=== PATIENT | female | born 1940 ===

== ENCOUNTER 2021-08-17 18:14 | Outpatient (REF) | payer MEDICARE, OTHER, SELFPAY | END 2021-08-17 18:15 | disposition home or self-care (01) | LOC: HO.LNP 18:14 | PROVIDERS: Visit Provider Internal Medicine | DX: R43.9 Unspecified disturbances of smell and taste (principal); Z20.822 Contact with and (suspected) exposure to COVID-19 | CPT/HCPCS: 0241U ==

== ENCOUNTER 2021-08-18 15:27 | Outpatient (REF) | payer MEDICARE, OTHER, SELFPAY ==
[2021-08-18 16:20] LABS: Influenza A PCR NEGATIVE (Negative); Influenza B PCR NEGATIVE (Negative); Resp Syncy Virus RNA Qual PCR NEGATIVE (Negative); SARS COV2 PCR INHOUSE NEGATIVE (Negative)
== END 2021-08-18 15:28 | disposition home or self-care (01) ==
LOC: HO.LNP 15:27
PROVIDERS: Visit Provider Internal Medicine
DX: R43.9 Unspecified disturbances of smell and taste (principal); Z20.822 Contact with and (suspected) exposure to COVID-19
CPT/HCPCS: 0241U

== ENCOUNTER 2022-10-15 12:08 | Outpatient (REF) | payer MEDICARE, OTHER, SELFPAY ==
[2022-10-15 14:41] LABS: Estimated Average Glucose 160 mg/dL; Hemoglobin A1c % 7.2 %
[2022-10-15 14:42] LABS: Alanine Aminotransferase 13 U/L (0-31); Alkaline Phosphatase 75 U/L (39-117); Anion Gap 12 (12-20); Aspartate Amino Transferase 16 U/L (5-31); Bilirubin Total 0.8 mg/dL (0.0-1.0); Blood Urea Nitrogen 13 mg/dL (9-16); Calcium 9.3 mg/dL (8.4-10.2); Carbon Dioxide 30 mmol/L (22-29); Chloride 103 mmol/L (96-108); Estimated Glomerular Filt Rate > 60; Glucose Random 153 mg/dL (60-115); Potassium 3.7 mmol/L (3.3-5.1); Sodium 141 mmol/L (135-145); Total Protein 6.5 g/dL (6.5-8.0)
[2022-10-15 15:01] LABS: TSH reflex Free T4 2.57 uIU/mL (0.32-4.0)
== END 2022-10-15 12:09 | disposition home or self-care (01) ==
LOC: HO.HMGCLDS 12:08
PROVIDERS: PCP Internal Medicine; Visit Provider Internal Medicine
DX: I10 Essential (primary) hypertension (principal); E11.9 Type 2 diabetes mellitus without complications
CPT/HCPCS: 36415; 80053; 83036; 84443

== ENCOUNTER 2023-09-22 14:00 | Outpatient (AMB) | payer MEDICARE, OTHER, SELFPAY ==
[2023-09-22 14:03] VITALS: BP 140/66; PULSE 83; O2SAT 94; BMI 30.7
--- NOTE | 2023-09-22 14:03 | MHC.PC.OV ---
Vital Signs 09/22/23 14:03 Height 5 ft 6 in Weight 190 lb BMI 30.7 BP 140/66 H Blood Pressure Location Rt brachial Position Sitting Pulse 83 Pulse Source Pulse Oximeter Pulse Oximetry (%) 94 Oxygen Delivery Method Room Air Intake Visit Reasons: IBS concerns Intake Note: Pt is here today for a follow up visit to discuss IBS concerns. Allergies codeine Allergy (Unknown, Verified 09/22/23 14:18) vomitting Sulfa (Sulfonamide Antibiotics) Allergy (Unknown, Verified 09/22/23 14:18) hallucinating Tobacco use date assessed: 09/22/23 Fall risk assessment: No Falls in past year Last assessed Fall Risk: 09/22/23 Dental Screening Dental Screen Date: 09/22/23 Did you have a dental visit in the last 12 months?: Yes Did you have a dental problem in the last 6 months where you did not have access to dental care?: No Was dental information given to patient?: Patient has dentist HPI IBS concerns HPI Details Pt c/o recurrent postnasal drip, intermittent cough at night, no fever, chills PND orthopnea chest pain night sweats, patient complains of both ears feeling blocked and chronic IBS symptoms alternating constipation and diarrhea patient denies abdominal pain hematochezia melena. [facility] Medical History (Updated 09/22/23 @ 14:56 by Pascale Johnson MD) Vitamin D deficiency Diabetes Microalbuminuria Asthma History of TIAs HTN (hypertension) Family History Father History of cancer Mother No problems noted. Social History Housing: House Patient Tobacco Use Status: Former Tobacco user e-Cigarette/Vaping Use: Never Used Current occupational status: retired Cognitive needs: No Hearing needs: No Vision needs: Yes Questionnaire PHQ-9 Over the last 2 weeks, how often have you been bothered by any of the following problems? 1. Little interest or pleasure in doing things: not at all 2. Feeling down, depressed, or hopeless: not at all 3. Trouble falling or staying asleep, or sleeping too much: not at all 4. Feeling tired or having little energy: not at all 5. Poor appetite or overeating: not at all 6. Feeling bad about yourself - or that you are a failure or have let yourself or your family down: not at all 7. Trouble concentrating on things, such as reading the newspaper or watching television: not at all 8. Moving or speaking so slowly that other people could have noticed. Or the opposite - being so fidgety or restless that you have been moving around a lot more than usual: not at all 9. Thoughts that you would be better off or of hurting yourself in some way: not at all Total score: 0 Depression Screening Interpretation: Negative Depression Screening Done: Yes Source: Developed by Drs. Chetan Strong, Emma Maya, Celestino Franklin and colleagues, with an educational james from [employer]. Thrive Questionnaire Date Thrive assessed: 09/22/23 I am a: Patient What is your living situation today?: I have a steady place to live Within the past 12 months, did the food you bought not last and you didn't have the money to get more?: Never true Within the past 12 months, did you worry whether your food would run out before you got money to buy more?: Never true Do you have trouble paying for medicines?: No Do you have trouble getting transportation to medical appointments?: No Do you have trouble paying your heating and electricity bill?: No Do you have trouble taking care of your child, family member or friend?: No Do you have trouble with day-to-day activities such as bathing, preparing meals, shopping, managing finances, etc.?: No Are you currently unemployed and looking for a job?: No Are you interested in more education?: No Please select the resources that you would like help with: None Currently or been in a relationship where the following occur: no concerns reported THRIVE Score: 0 AUDIT C Alcohol Use Questionnaire (AUDIT-C) 1. How often do you have a drink containing alcohol?: Never 3. How often do you have six or more drinks on one occasion?: Never Total Score: 0 KELLIE-7 AMB Questionnaire KELLIE-7 Date KELLIE - 7 assessed: 09/22/23 Feeling nervous, anxious, or on edge: 0 = Not at all Not being able to stop or control worryin = Not at all Worrying too much about different things: 0 = Not at all Trouble relaxin = Not at all Being so restless that it is hard to sit still: 0 = Not at all Becoming easily annoyed or irritable: 0 = Not at all Feeling afraid as if something awful might happen: 0 = Not at all Total KELLIE-7 score (0-4 normal; 5-9 mild; 10-14 moderate; 15-21 severe): 0 Source: Developed by Drs. Chetan Strong, Emma Maya, Celestino Franklin and colleagues, with an educational james from [employer]. Review of Systems Const All systems reviewed & are unremarkable except as noted in HPI and below Reports no additional complaints Eyes Reports no additional complaints ENT Reports no additional complaints Card Reports no additional complaints Resp Reports no additional complaints GI Reports no additional complaints Reports no additional complaints Physical exam (Primary Care) Vital Signs: Last Vital Signs Pulse 83 09/22/23 14:03 BP 140/66 H 09/22/23 14:03 Pulse Ox 94 09/22/23 14:03 Oxygen Delivery Method Room Air 09/22/23 14:03 BMI result Body Mass Index 30.7 Tobacco/Smoking Status: Tobacco use Status Tobacco use date assessed 09/22/23 09/22/23 14:20 Patient Tobacco Use Status Former Tobacco user 09/22/23 14:20 e-Cigarette/Vaping Use Never Used 09/22/23 14:03 PHQ-9: PHQ-9 Score PHQ-9: Total score 0 09/22/23 14:22 Depression Screening Interpretation: Negative Thrive Assessment: Date of Thrive Assessment Date Thrive assessed 09/22/23 09/22/23 14:22 Currently or been in a relationship where the following occur: no concerns reported Const General: no acute distress HENMT Ears: unable to visualize TM (cerumen impaction) bilaterally Face and sinus: Yes normal facial exam Throat: Yes posterior oropharynx normal Eyes General: appearance normal, both eyes and all related structures Resp Effort & Inspection: normal respiratory effort Auscultation: clear to auscultation bilaterally Cardio Rhythm: regular rhythm Heart sounds: S1 normal heart sound present and S2 normal heart sound present GI Inspection: Yes normal to inspection Palpation (GI): Soft to palpation Percussion: Yes dullness to percussion Auscultation: normal bowel sounds Assessment and Plan Assessment & Plan (1) Diabetes: Comment: A1c was 6.9. Continue ADA diet increase physical activity weight loss discussed with the patient Code(s): E11.9 - Type 2 diabetes mellitus without complications Plan: ADA diet discussed with the patient. She will return for fasting blood work including A1c (2) HTN (hypertension): Comment: continue medications Code(s): I10 - Essential (primary) hypertension Plan: Continue current medications (3) Vitamin D deficiency: Code(s): E55.9 - Vitamin D deficiency, unspecified Plan: Continue vitamin-D supplement (4) Postnasal drip: Code(s): R09.82 - Postnasal drip Plan: Patient was advised to alternate saline nasal spray and Flonase and try [id number] antihistamine if the postnasal drip persist (5) IBS (irritable bowel syndrome): Code(s): K58.9 - Irritable bowel syndrome without diarrhea Plan: Patient was advised to start iron supplement and probiotic, stress management discussed with the patient Orders: Orders Hemoglobin A1c Today E11.9 - Type 2 diabetes mellitus without complications, E55.9 - Vitamin D deficiency, unspecified, I10 - Essential (primary) hypertension Complete Blood Count Auto Diff Today E11.9 - Type 2 diabetes mellitus without complications, E55.9 - Vitamin D deficiency, unspecified, I10 - Essential (primary) hypertension TSH reflex Free T4 Today E11.9 - Type 2 diabetes mellitus without complications, E55.9 - Vitamin D deficiency, unspecified, I10 - Essential (primary) hypertension XR chest 1V Today R05.9 - Cough, unspecified Comprehensive [place]. Panel Fast Today E11.9 - Type 2 diabetes mellitus without complications, E55.9 - Vitamin D deficiency, unspecified, I10 - Essential (primary) hypertension Lipid Panel Today E11.9 - Type 2 diabetes mellitus without complications, E55.9 - Vitamin D deficiency, unspecified, I10 - Essential (primary) hypertension Microalbumin, Random (w Creat) Today E11.9 - Type 2 diabetes mellitus without complications, E55.9 - Vitamin D deficiency, unspecified, I10 - Essential (primary) hypertension Vitamin D 25-OH Total Today E11.9 - Type 2 diabetes mellitus without complications, E55.9 - Vitamin D deficiency, unspecified, I10 - Essential (primary) hypertension Coding Level of Care Code Est Pt Level 4 (57663) Diagnoses Diabetes E11.9 HTN (hypertension) I10 Vitamin D deficiency E55.9 Postnasal drip R09.82 IBS (irritable bowel syndrome) K58.9
== END 2023-09-22 14:58 | disposition home or self-care (01) ==
PROVIDERS: PCP Internal Medicine; Visit Provider Internal Medicine
DX: E11.9 Type 2 diabetes mellitus without complications (principal); I10 Essential (primary) hypertension; E55.9 Vitamin D deficiency, unspecified; R09.82 Postnasal drip; K58.9 Irritable bowel syndrome, unspecified
CPT/HCPCS: 99214

== ENCOUNTER 2023-09-22 14:55 | Outpatient (REF) | payer MEDICARE, OTHER, SELFPAY ==
--- NOTE | ~2023-09-22 | XR_ITS ---
EXAMINATION: XR CHEST CLINICAL INFORMATION: Cough COMPARISON: Chest x-ray October 08, 2006 TECHNIQUE: 2 views of the chest were obtained. FINDINGS: Lungs are clear. No pulmonary vascular congestion. There is no pleural effusion. The heart size is normal. The cardiac and mediastinal contours are normal. . There are multilevel degenerative changes of dorsal spine. XR/XR chest 2V IMPRESSION: Unremarkable examination.
== END 2023-09-22 14:56 | disposition home or self-care (01) ==
LOC: HO.HMGCX 14:55
PROVIDERS: PCP Internal Medicine; Visit Provider Internal Medicine
DX: R05.9 Cough, unspecified (principal)
CPT/HCPCS: 71046

== ENCOUNTER 2023-09-24 13:15 | Outpatient (REF) | payer MEDICARE, OTHER, SELFPAY ==
[2023-09-24 16:16] LABS: MANUAL DIFF FLAG NO
[2023-09-24 16:30] LABS: Basophils Percent Auto 0.7 % (0-2); Eosinophils Absolute Auto 0.2 X10*3/uL (0.0-0.4); Eosinophils Percent Auto 3.4 % (0-4); Hematocrit 38.7 % (37.0-47.0); Hemoglobin 13.2 g/dl (12.0-16.0); Imm Gran Abs Auto 0.01 X10*3/uL (0.00-0.03); Imm Gran Pct Auto 0.2 % (0.0-0.4); Lymphocytes Absolute Auto 1.7 X10*3/uL (1.2-4.9); Lymphocytes Percent Auto 28.5 % (20-40); Mean Corpuscular HGB Conc 34.1 g/dl (31.0-35.0); Mean Corpuscular Hemoglobin 33.4 pg (27.0-33.0); Monocytes Absolute Auto 0.4 X10*3/uL (0.1-1.2); Monocytes Percent Auto 7.6 % (2-11); Neutrophils Absolute Auto 3.5 x10*3/uL (2.0-8.3); Neutrophils Percent Auto 59.6 % (45-73); Platelet Count 229 X10*3/uL (160-400); Red Blood Count 3.95 X10*6/uL (4.20-5.50); Red Cell Distribution Width 12.6 % (11.0-16.0); White Blood Count 5.8 X10*3/uL (4.8-10.8)
[2023-09-24 16:40] LABS: Estimated Average Glucose 171 mg/dL; Hemoglobin A1c % 7.6 % (<6.0)
[2023-09-24 17:14] LABS: Microalbum/Creatinine Ratio Ur 14.9 ug/mg cr (<30)
[2023-09-24 17:18] LABS: Alanine Aminotransferase 16 U/L (0-31); Albumin Level 3.8 g/dL (3.5-5.0); Alkaline Phosphatase 65 U/L (39-117); Anion Gap 13 (12-20); Aspartate Amino Transferase 16 U/L (5-31); Bilirubin Total 0.6 mg/dL (0.0-1.0); Blood Urea Nitrogen 14 mg/dL (9-16); Calcium 9.3 mg/dL (8.4-10.2); Carbon Dioxide 30 mmol/L (22-29); Chloride 103 mmol/L (96-108); Cholesterol 158 mg/dL (<200); Estimated Glomerular Filt Rate 59; Glucose Fasting 138 mg/dL (60-99); HDL Cholesterol 61 mg/dL (>40); LDL Cholesterol Calculated 78 mg/dL (<100); Sodium 143 mmol/L (135-145); Total Protein 6.7 g/dL (6.5-8.0); Triglycerides 96 mg/dL (<150)
[2023-09-24 17:36] LABS: TSH reflex Free T4 1.39 uIU/mL (0.32-4.0); Vitamin D 25-OH Total 12.7 ng/mL (>30)
== END 2023-09-24 13:16 | disposition home or self-care (01) ==
LOC: HO.HMGCLDS 13:15
PROVIDERS: PCP Internal Medicine; Visit Provider Internal Medicine
DX: E11.9 Type 2 diabetes mellitus without complications (principal); I10 Essential (primary) hypertension; E55.9 Vitamin D deficiency, unspecified
CPT/HCPCS: 36415; 80053; 80061; 82043; 82306; 82570; 83036; 84443; 85025

== ENCOUNTER 2023-10-13 12:09 | Outpatient (REF) | payer MEDICARE, OTHER, SELFPAY ==
[2023-10-13 14:33] LABS: Anion Gap 12 (12-20); Blood Urea Nitrogen 17 mg/dL (9-16); Calcium 9.5 mg/dL (8.4-10.2); Carbon Dioxide 31 mmol/L (22-29); Chloride 104 mmol/L (96-108); Estimated Glomerular Filt Rate > 60; Glucose Random 170 mg/dL (60-115); Potassium 3.9 mmol/L (3.3-5.1); Sodium 143 mmol/L (135-145)
== END 2023-10-13 12:10 | disposition home or self-care (01) ==
LOC: HO.HMGCLDS 12:09
PROVIDERS: PCP Internal Medicine; Visit Provider Internal Medicine
DX: E87.6 Hypokalemia (principal)
CPT/HCPCS: 36415; 80048

== ENCOUNTER 2023-12-22 14:11 | Outpatient (AMB) | payer MEDICARE, OTHER, SELFPAY ==
[2023-12-22 14:13] VITALS: BP 122/74; PULSE 72; O2SAT 95; BMI 31.0
--- NOTE | 2023-12-22 14:13 | A.OFFPC_ITS ---
Vital Signs 12/22/23 14:13 Height 5 ft 6 in Weight 192 lb BMI 31.0 BP 122/74 Blood Pressure Location Rt brachial Position Sitting Pulse 72 Pulse Source Pulse Oximeter Pulse Oximetry (%) 95 Oxygen Delivery Method Room Air Intake Visit Reasons: 3 month follow up Intake Note: Pt is here today for 3 months follow up visit. Allergies codeine Allergy (Unknown, Verified 12/22/23 14:25) vomitting Sulfa (Sulfonamide Antibiotics) Allergy (Unknown, Verified 12/22/23 14:25) hallucinating Medication List - Last Reconciled 12/22/23 by Pascale Johnson MD albuterol sulfate 90 mcg/actuation 2 puffs inhalation Q6H atenolol 50 mg PO DAILY blood sugar diagnostic (FreeStyle Lite Strips) test once a day blood-glucose meter (FreeStyle [place] kit) Test blood sugar once a day cholecalciferol (vitamin D3) 50 mcg PO DAILY hydrochlorothiazide 12.5 mg PO DAILY lancets (FreeStyle Lancets) Test blood sugar once a day losartan 25 mg PO DAILY potassium chloride ER 20 mEq PO DAILY Tobacco use date assessed: 12/22/23 Fall risk assessment: No Falls in past year Last assessed Fall Risk: 12/22/23 Dental Screening Dental Screen Date: 09/22/23 HPI 3 month follow up HPI Details Pt presents for HTN, diet-controlled diabetes. She has not been following antidiabetic diet and eating sweets. Patient reports occasionally fasting blood glucose over 200. She denies polyuria polydipsia PFSH Medical History Vitamin D deficiency Diabetes Microalbuminuria Asthma History of TIAs HTN (hypertension) Surgical History H/O: hysterectomy Family History Father History of cancer Mother No problems noted. Social History Housing: House Patient Tobacco Use Status: Former Tobacco user e-Cigarette/Vaping Use: Never Used service: No Current occupational status: retired Cognitive needs: No Hearing needs: No Vision needs: Yes Questionnaire Thrive Questionnaire Date Thrive assessed: 09/22/23 KELLIE-7 AMB Questionnaire KELLIE-7 Date KELLIE - 7 assessed: 09/22/23 Source: Developed by DrsMarianela Strong, Emma Maya, Celestino Franklin and colleagues, with an educational james from [employer]. Review of Systems Const All systems reviewed & are unremarkable except as noted in HPI and below Reports no additional complaints Eyes Reports no additional complaints ENT Reports no additional complaints Card Reports no additional complaints Resp Reports no additional complaints GI Reports no additional complaints Reports no additional complaints Musc Reports no additional complaints Neuro Reports no additional complaints Physical exam (Primary Care) Vital Signs: Last Vital Signs Pulse 72 12/22/23 14:13 BP 122/74 12/22/23 14:13 Pulse Ox 95 12/22/23 14:13 Oxygen Delivery Method Room Air 12/22/23 14:13 BMI result Body Mass Index 31.0 Tobacco/Smoking Status: Tobacco use Status Tobacco use date assessed 12/22/23 12/22/23 14:26 Patient Tobacco Use Status Former Tobacco user 12/22/23 14:26 e-Cigarette/Vaping Use Never Used 12/22/23 14:13 Thrive Assessment: Date of Thrive Assessment Date Thrive assessed 09/22/23 12/22/23 14:13 Const General: no acute distress HENMT Head: Yes normal to inspection Ears: hearing grossly normal bilaterally Face and sinus: Yes normal facial exam Mouth: Normal oral and palatal mucosa present Throat: Yes posterior oropharynx normal Eyes General: appearance normal, both eyes and all related structures Neck Neck: Yes no lymphadenopathy and Yes supple Resp Effort & Inspection: normal respiratory effort Auscultation: clear to auscultation bilaterally Cardio Rhythm: regular rhythm Heart sounds: S1 normal heart sound present and S2 normal heart sound present GI Inspection: Yes normal to inspection Palpation (GI): Soft to palpation Percussion: Yes normal to percussion Auscultation: normal bowel sounds Assessment and Plan Assessment & Plan (1) HTN (hypertension): Comment: continue medications Code(s): I10 - Essential (primary) hypertension Plan: Patient was advised to stop taking hydrochlorothiazide because of recurrent hypokalemia. She will follow-up in 1 month with a fasting labs before including A1c (2) Diabetes: Comment: A1c was 6.9. Continue ADA diet increase physical activity weight loss discussed with the patient Code(s): E11.9 - Type 2 diabetes mellitus without complications Plan: ADA diet regular exercise discussed with the patient (3) Hypokalemia: Comment: Stop hydrochlorothiazide Code(s): E87.6 - Hypokalemia Orders: Orders Complete Blood Count Auto Diff 1 Month E11.9 - Type 2 diabetes mellitus without complications, E87.6 - Hypokalemia, I10 - Essential (primary) hypertension Comprehensive Met. Panel 1 Month E11.9 - Type 2 diabetes mellitus without complications, E87.6 - Hypokalemia, I10 - Essential (primary) hypertension Hemoglobin A1c 1 Month E11.9 - Type 2 diabetes mellitus without complications, E87.6 - Hypokalemia, I10 - Essential (primary) hypertension Medications: Refilled atenolol 50 mg PO DAILY 90 tabs 3RF losartan 25 mg PO DAILY 90 tabs 3RF Discontinued hydrochlorothiazide Discontinued Reason: Doctor's Order 12.5 mg PO DAILY 90 caps 3RF I10 - Essential (primary) hypertension potassium chloride ER Discontinued Reason: Doctor's Order 20 mEq PO DAILY 30 tabs 0RF Coding Level of Care Code Est Pt Level 3 (63401) Diagnoses HTN (hypertension) I10 Diabetes E11.9 Hypokalemia E87.6
== END 2023-12-22 15:14 | disposition home or self-care (01) ==
LOC: HO.HMGC 14:11
PROVIDERS: PCP Internal Medicine; Visit Provider Internal Medicine
DX: I10 Essential (primary) hypertension (principal); E11.9 Type 2 diabetes mellitus without complications; E87.6 Hypokalemia
CPT/HCPCS: 99213

== ENCOUNTER 2024-01-24 13:48 | Outpatient (REF) | payer MEDICARE, OTHER, SELFPAY ==
[2024-01-24 15:24] LABS: MANUAL DIFF FLAG NO
[2024-01-24 15:29] LABS: Basophils Percent Auto 0.6 % (0-2); Eosinophils Absolute Auto 0.1 X10*3/uL (0.0-0.4); Eosinophils Percent Auto 2.5 % (0-4); Hemoglobin 13.6 g/dl (12.0-16.0); Imm Gran Abs Auto 0.01 X10*3/uL (0.00-0.03); Imm Gran Pct Auto 0.2 % (0.0-0.4); Lymphocytes Absolute Auto 1.7 X10*3/uL (1.2-4.9); Lymphocytes Percent Auto 32.8 % (20-40); Mean Corpuscular Hemoglobin 33.2 pg (27.0-33.0); Mean Corpuscular Volume 97.6 fL (80.0-98.0); Monocytes Absolute Auto 0.5 X10*3/uL (0.1-1.2); Neutrophils Absolute Auto 2.9 x10*3/uL (2.0-8.3); Neutrophils Percent Auto 54.9 % (45-73); Platelet Count 224 X10*3/uL (160-400); Red Cell Distribution Width 13.2 % (11.0-16.0); White Blood Count 5.2 X10*3/uL (4.8-10.8)
[2024-01-24 16:09] LABS: Estimated Average Glucose 160 mg/dL; Hemoglobin A1c % 7.2 % (<6.0)
[2024-01-24 16:15] LABS: Alanine Aminotransferase 14 U/L (0-31); Alkaline Phosphatase 69 U/L (39-117); Anion Gap 15 (12-20); Aspartate Amino Transferase 15 U/L (5-31); Bilirubin Total 0.7 mg/dL (0.0-1.0); Blood Urea Nitrogen 17 mg/dL (9-16); Calcium 9.6 mg/dL (8.4-10.2); Carbon Dioxide 26 mmol/L (22-29); Chloride 108 mmol/L (96-108); Cholesterol 165 mg/dL (<200); Estimated Glomerular Filt Rate 56; Glucose Random 121 mg/dL (60-115); HDL Cholesterol 64 mg/dL (>40); LDL Cholesterol Calculated 82 mg/dL (<100); Potassium 3.8 mmol/L (3.3-5.1); Sodium 145 mmol/L (135-145); Total Protein 6.8 g/dL (6.5-8.0); Triglycerides 98 mg/dL (<150)
[2024-01-24 16:23] LABS: TSH reflex Free T4 2.16 uIU/mL (0.32-4.0); Vitamin D 25-OH Total 15.4 ng/mL (>30)
[2024-01-24 16:36] LABS: Folate 6.2 ng/mL (> or = 4.0); Vitamin B12 501 pg/mL (200-900)
== END 2024-01-24 13:49 | disposition home or self-care (01) ==
LOC: HO.HMGCLDS 13:48
PROVIDERS: Visit Provider Internal Medicine
DX: E55.9 Vitamin D deficiency, unspecified (principal); I10 Essential (primary) hypertension; E87.6 Hypokalemia; E11.9 Type 2 diabetes mellitus without complications
CPT/HCPCS: 36415; 80053; 80061; 82306; 82607; 82746; 83036; 84443; 85025

== ENCOUNTER 2024-01-27 12:50 | Outpatient (AMB) | payer MEDICARE, OTHER, SELFPAY ==
[2024-01-27 13:09] VITALS: BP 136/76; PULSE 69; O2SAT 96; BMI 30.9
--- NOTE | 2024-01-27 13:09 | A.OFFPC_ITS ---
Vital Signs 01/27/24 13:09 Height 5 ft 6 in Weight 191 lb 4 oz BMI 30.9 BP 136/76 Blood Pressure Location Rt brachial Position Sitting Pulse 69 Pulse Source Pulse Oximeter Pulse Oximetry (%) 96 Intake Visit Reasons: 1M F/U Allergies codeine Allergy (Unknown, Verified 01/27/24 13:10) vomitting Sulfa (Sulfonamide Antibiotics) Allergy (Unknown, Verified 01/27/24 13:10) hallucinating Medication List - Last Reconciled 01/27/24 by Pascale Johnson MD albuterol sulfate 90 mcg/actuation 2 puffs inhalation Q6H atenolol 50 mg PO DAILY blood sugar diagnostic ([employer] Lite Strips) USE TO CHECK BLOOD SUGAR ONCE A DAY DIRECTED blood-glucose meter (Science FantasyStyle [place] kit) Test blood sugar once a day cholecalciferol (vitamin D3) 50 mcg PO DAILY lancets (FreeStyle Lancets) Test blood sugar once a day losartan-hydrochlorothiazide 50-12.5 mg 1 tab PO DAILY Tobacco use date assessed: 01/27/24 Fall risk assessment: No Falls in past year Last assessed Fall Risk: 01/27/24 Dental Screening Dental Screen Date: 01/27/24 Did you have a dental visit in the last 12 months?: No Did you have a dental problem in the last 6 months where you did not have access to dental care?: No Was dental information given to patient?: No HPI 1M F/U HPI Details Pt presents for HTN, diet controlled DM 2, stable on meds. Patient noticed increasing lower extremity swelling since she is stopped taking hydrochlorothiazide. Patient denies shortness or breath, chest pain palpitations PND or orthopnea PFSH Medical History Vitamin D deficiency Diabetes Microalbuminuria Asthma History of TIAs HTN (hypertension) Surgical History H/O: hysterectomy Family History Father History of cancer Mother No problems noted. Social History Housing: House Patient Tobacco Use Status: Former Tobacco user e-Cigarette/Vaping Use: Never Used service: No Current occupational status: retired Cognitive needs: No Hearing needs: No Vision needs: Yes Questionnaire Thrive Questionnaire Date Thrive assessed: 09/22/23 AUDIT C Alcohol Use Questionnaire (AUDIT-C) 1. How often do you have a drink containing alcohol?: Never 3. How often do you have six or more drinks on one occasion?: Never Total Score: 0 Score Reviewed/Action Taken: Yes KELLIE-7 AMB Questionnaire KELLIE-7 Date KELLIE - 7 assessed: 09/22/23 Source: Developed by Drs. Chetan Strong, Emma Maya, Celestino Franklin and colleagues, with an educational james from [employer]. Review of Systems Const All systems reviewed & are unremarkable except as noted in HPI and below Eyes Reports no additional complaints ENT Reports no additional complaints Card Reports no additional complaints Resp Reports no additional complaints GI Reports no additional complaints Reports no additional complaints Physical exam (Primary Care) Vital Signs: Last Vital Signs Pulse 69 01/27/24 13:09 BP 172/76 H 01/27/24 13:09 Pulse Ox 96 01/27/24 13:09 BMI result Body Mass Index 30.9 Tobacco/Smoking Status: Tobacco use Status Tobacco use date assessed 01/27/24 01/27/24 13:11 Patient Tobacco Use Status Former Tobacco user 01/27/24 13:11 e-Cigarette/Vaping Use Never Used 01/27/24 13:11 Thrive Assessment: Date of Thrive Assessment Date Thrive assessed 09/22/23 01/27/24 13:11 Const General: no acute distress HENMT Head: Yes normal to inspection Ears: hearing grossly normal bilaterally Face and sinus: Yes normal facial exam Mouth: Normal oral and palatal mucosa present Eyes General: appearance normal, both eyes and all related structures Neck Neck: Yes supple Resp Effort & Inspection: normal respiratory effort Auscultation: clear to auscultation bilaterally Cardio Rhythm: regular rhythm Heart sounds: S1 normal heart sound present and S2 normal heart sound present Extrem Other: 2+ pitting edema bilaterally Assessment and Plan Assessment & Plan (1) HTN (hypertension): Comment: continue medications Code(s): I10 - Essential (primary) hypertension Plan: Change losartan 25 mg to losartan with hydrochlorothiazide 50/12.5. Patient will have BMP checked in 1 week follow-up in 6 weeks (2) Diabetes: Comment: A1c was 6.9. Continue ADA diet increase physical activity weight loss discussed with the patient Code(s): E11.9 - Type 2 diabetes mellitus without complications Plan: A1c is 7.2, ADA diet increase exercise weight loss discussed with the patient (3) Overweight: Code(s): E66.3 - Overweight Plan: Increase physical activity weight loss discussed with the patient Orders: Orders Basic Metabolic Panel 1 Week I10 - Essential (primary) hypertension Medications: New losartan-hydrochlorothiazide 50-12.5 mg 1 tab PO DAILY 90 tabs 1RF Discontinued losartan Discontinued Reason: Doctor's Order 25 mg PO DAILY 90 tabs 3RF Coding Level of Care Code Est Pt Level 4 (16080) Diagnoses HTN (hypertension) I10 Diabetes E11.9 Overweight E66.3
== END 2024-01-27 13:59 | disposition home or self-care (01) ==
LOC: HO.HMGC 12:50
PROVIDERS: PCP Internal Medicine; Visit Provider Internal Medicine
DX: I10 Essential (primary) hypertension (principal); E11.9 Type 2 diabetes mellitus without complications; E66.3 Overweight
CPT/HCPCS: 99214

== ENCOUNTER 2024-03-09 10:27 | Outpatient (AMB) | payer MEDICARE, OTHER, SELFPAY ==
[2024-03-09 10:46] VITALS: BP 122/66; PULSE 62; O2SAT 97; BMI 30.2
--- NOTE | 2024-03-09 10:46 | A.OFFPC_ITS ---
Vital Signs 03/09/24 10:46 Height 5 ft 6 in Weight 187 lb BMI 30.2 BP 122/66 Blood Pressure Location Rt brachial Position Sitting Pulse 62 Pulse Source Pulse Oximeter Pulse Oximetry (%) 97 Oxygen Delivery Method Room Air Intake Visit Reasons: 6 week follow up Intake Note: Pt is here today for 6 weeks follow up visit on BP. Allergies codeine Allergy (Unknown, Verified 03/09/24 10:47) vomitting Sulfa (Sulfonamide Antibiotics) Allergy (Unknown, Verified 03/09/24 10:47) hallucinating Medication List - Last Reconciled 03/09/24 by Pascale Johnson MD albuterol sulfate 90 mcg/actuation 2 puffs inhalation Q6H atenolol 50 mg PO DAILY blood sugar diagnostic (WalkSourceStyle Lite Strips) USE TO CHECK BLOOD SUGAR ONCE A DAY DIRECTED blood-glucose meter (amaysimyle [place] [employer] kit) Test blood sugar once a day cholecalciferol (vitamin D3) 50 mcg PO DAILY lancets (WalkSourceStyle Lancets) Test blood sugar once a day losartan-hydrochlorothiazide 50-12.5 mg 1 tab PO DAILY Tobacco use date assessed: 03/09/24 Fall risk assessment: No Falls in past year Last assessed Fall Risk: 03/09/24 Dental Screening Dental Screen Date: 01/27/24 HPI 6 week follow up HPI Details PATIENT PRESENTS FOR THE FOLLOW-UP OF HYPERTENSION CONTROLLED ON CURRENT MEDICATIONS.. She has been following ADA diet for diet controlled diabetes. [facility] Medical History Vitamin D deficiency Diabetes Microalbuminuria Asthma History of TIAs HTN (hypertension) Surgical History H/O: hysterectomy Family History Father History of cancer Mother No problems noted. Social History Housing: House Patient Tobacco Use Status: Former Tobacco user e-Cigarette/Vaping Use: Never Used service: No Current occupational status: retired Cognitive needs: No Hearing needs: No Vision needs: Yes Questionnaire PHQ-9 Over the last 2 weeks, how often have you been bothered by any of the following problems? 1. Little interest or pleasure in doing things: not at all 2. Feeling down, depressed, or hopeless: not at all 3. Trouble falling or staying asleep, or sleeping too much: not at all 4. Feeling tired or having little energy: not at all 5. Poor appetite or overeating: not at all 6. Feeling bad about yourself - or that you are a failure or have let yourself or your family down: not at all 7. Trouble concentrating on things, such as reading the newspaper or watching television: not at all 8. Moving or speaking so slowly that other people could have noticed. Or the opposite - being so fidgety or restless that you have been moving around a lot more than usual: not at all 9. Thoughts that you would be better off or of hurting yourself in some way: not at all Total score: 0 Depression Screening Interpretation: Negative Depression Screening Done: Yes Source: Developed by Drs. Chetan Strong, Celestino Flores and colleagues, with an educational james from [employer]. Thrive Questionnaire Date Thrive assessed: 09/22/23 AUDIT C Alcohol Use Questionnaire (AUDIT-C) 1. How often do you have a drink containing alcohol?: Never 3. How often do you have six or more drinks on one occasion?: Never Total Score: 0 KELLIE-7 AMB Questionnaire KELLIE-7 Date KELLIE - 7 assessed: 09/22/23 Source: Developed by Drs. Chetan Strong, Celestino Flores and colleagues, with an educational james from [employer]. Review of Systems Const All systems reviewed & are unremarkable except as noted in HPI and below ENT Reports no additional complaints Card Reports no additional complaints Resp Reports no additional complaints GI Reports no additional complaints Reports no additional complaints Physical exam (Primary Care) Vital Signs: Last Vital Signs Pulse 62 03/09/24 10:46 BP 122/66 03/09/24 10:46 Pulse Ox 97 03/09/24 10:46 Oxygen Delivery Method Room Air 03/09/24 10:46 BMI result Body Mass Index 30.2 Tobacco/Smoking Status: Tobacco use Status Tobacco use date assessed 03/09/24 03/09/24 10:47 Patient Tobacco Use Status Former Tobacco user 03/09/24 10:47 e-Cigarette/Vaping Use Never Used 03/09/24 10:47 PHQ-9: PHQ-9 Score PHQ-9: Total score 0 03/09/24 11:03 Depression Screening Interpretation: Negative Thrive Assessment: Date of Thrive Assessment Date Thrive assessed 09/22/23 03/09/24 10:47 Const General: no acute distress HENMT Head: Yes normal to inspection Neck Neck: Yes supple Resp Effort & Inspection: normal respiratory effort Auscultation: clear to auscultation bilaterally Cardio Rhythm: regular rhythm Heart sounds: S1 normal heart sound present and S2 normal heart sound present Assessment and Plan Assessment & Plan (1) HTN (hypertension): Comment: continue medications Code(s): I10 - Essential (primary) hypertension Plan: Continue current medications check BMP today (2) Diabetes: Comment: A1c was 6.9. Continue ADA diet increase physical activity weight loss discussed with the patient Code(s): E11.9 - Type 2 diabetes mellitus without complications Plan: Continue ADA diet increase physical activity weight loss discussed with the patient return in 5 weeks with fasting labs including A1c Orders: Orders Hemoglobin A1c 5 Weeks E11.9 - Type 2 diabetes mellitus without complications, I10 - Essential (primary) hypertension Comprehensive [place]. Panel Fast 5 Weeks E11.9 - Type 2 diabetes mellitus without complications, I10 - Essential (primary) hypertension Basic Metabolic Panel Today E11.9 - Type 2 diabetes mellitus without complications, I10 - Essential (primary) hypertension Complete Blood Count Auto Diff 5 Weeks E11.9 - Type 2 diabetes mellitus without complications, I10 - Essential (primary) hypertension Lipid Panel 5 Weeks E11.9 - Type 2 diabetes mellitus without complications, I10 - Essential (primary) hypertension Referrals Podiatry Referral E11.9 - Type 2 diabetes mellitus without complications Medications: Refilled albuterol sulfate 90 mcg/actuation 2 puffs inhalation Q6H 8.5 grams 3RF Coding Level of Care Code Est Pt Level 3 (69608) Diagnoses HTN (hypertension) I10 Diabetes E11.9
== END 2024-03-09 11:29 | disposition home or self-care (01) ==
PROVIDERS: PCP Internal Medicine; Visit Provider Internal Medicine
DX: I10 Essential (primary) hypertension (principal); E11.9 Type 2 diabetes mellitus without complications
CPT/HCPCS: 99213

== ENCOUNTER 2024-03-09 11:30 | Outpatient (REF) | payer MEDICARE, OTHER, SELFPAY ==
[2024-03-09 13:34] LABS: Anion Gap 13 (12-20); Blood Urea Nitrogen 18 mg/dL (9-16); Calcium 9.6 mg/dL (8.4-10.2); Carbon Dioxide 29 mmol/L (22-29); Chloride 104 mmol/L (96-108); Estimated Glomerular Filt Rate 56; Glucose Random 151 mg/dL (60-115); Potassium 3.4 mmol/L (3.3-5.1); Sodium 143 mmol/L (135-145)
== END 2024-03-09 11:31 | disposition home or self-care (01) ==
LOC: HO.HMGCLDS 11:30
PROVIDERS: PCP Internal Medicine; Visit Provider Internal Medicine
DX: E11.9 Type 2 diabetes mellitus without complications (principal); I10 Essential (primary) hypertension
CPT/HCPCS: 36415; 80048

== ENCOUNTER 2024-04-13 12:09 | Outpatient (REF) | payer MEDICARE, OTHER, SELFPAY ==
[2024-04-13 13:32] LABS: MANUAL DIFF FLAG NO
[2024-04-13 13:38] LABS: Basophils Percent Auto 0.7 % (0-2); Eosinophils Absolute Auto 0.1 X10*3/uL (0.0-0.4); Eosinophils Percent Auto 1.8 % (0-4); Hematocrit 39.8 % (37.0-47.0); Hemoglobin 13.8 g/dl (12.0-16.0); Imm Gran Abs Auto 0.02 X10*3/uL (0.00-0.03); Imm Gran Pct Auto 0.3 % (0.0-0.4); Lymphocytes Absolute Auto 1.6 X10*3/uL (1.2-4.9); Lymphocytes Percent Auto 25.8 % (20-40); Mean Corpuscular HGB Conc 34.7 g/dl (31.0-35.0); Mean Corpuscular Hemoglobin 33.6 pg (27.0-33.0); Mean Corpuscular Volume 96.8 fL (80.0-98.0); Mean Platelet Volume 11.7 fL (9.4-12.3); Monocytes Absolute Auto 0.4 X10*3/uL (0.1-1.2); Neutrophils Percent Auto 64.4 % (45-73); Platelet Count 220 X10*3/uL (160-400); Red Blood Count 4.11 X10*6/uL (4.20-5.50); Red Cell Distribution Width 12.8 % (11.0-16.0); White Blood Count 6.1 X10*3/uL (4.8-10.8)
[2024-04-13 14:20] LABS: Estimated Average Glucose 160 mg/dL; Hemoglobin A1c % 7.2 % (<6.0)
[2024-04-13 14:31] LABS: Alanine Aminotransferase 14 U/L (0-31); Albumin Level 3.9 g/dL (3.5-5.0); Alkaline Phosphatase 75 U/L (39-117); Anion Gap 12 (12-20); Aspartate Amino Transferase 17 U/L (5-31); Bilirubin Total 0.7 mg/dL (0.0-1.0); Blood Urea Nitrogen 15 mg/dL (9-16); Calcium 9.1 mg/dL (8.4-10.2); Carbon Dioxide 29 mmol/L (22-29); Chloride 103 mmol/L (96-108); Cholesterol 169 mg/dL (<200); Estimated Glomerular Filt Rate 56; Glucose Fasting 144 mg/dL (60-99); HDL Cholesterol 66 mg/dL (>40); LDL Cholesterol Calculated 84 mg/dL (<100); Potassium 3.7 mmol/L (3.3-5.1); Sodium 140 mmol/L (135-145); Total Protein 6.8 g/dL (6.5-8.0); Triglycerides 99 mg/dL (<150)
== END 2024-04-13 12:10 | disposition home or self-care (01) ==
LOC: HO.HMGCLDS 12:09
PROVIDERS: PCP Internal Medicine; Visit Provider Internal Medicine
DX: I10 Essential (primary) hypertension (principal); E11.9 Type 2 diabetes mellitus without complications
CPT/HCPCS: 36415; 80053; 80061; 83036; 85025

== ENCOUNTER 2024-04-23 10:07 | Outpatient (AMB) | payer MEDICARE, OTHER, SELFPAY ==
[2024-04-23 10:07] VITALS: BP 128/68; PULSE 70; O2SAT 96
--- NOTE | 2024-04-23 10:07 | AM.OFFVISMDC ---
Intake Vital Signs 04/23/24 10:07 Height 5 ft 6 in Weight 186 lb BMI 30.0 BP 128/68 Blood Pressure Location Lt brachial Position Sitting Pulse 70 Pulse Source Pulse Oximeter Pulse Oximetry (%) 96 Oxygen Delivery Method Room Air Intake Visit Reasons: V G0439 Allergies codeine Allergy (Unknown, Verified 04/23/24 10:16) vomitting Sulfa (Sulfonamide Antibiotics) Allergy (Unknown, Verified 04/23/24 10:16) hallucinating Medication List - Last Reconciled 04/23/24 by Pascale Johnson MD albuterol sulfate 90 mcg/actuation 2 puffs inhalation Q6H atenolol 50 mg PO DAILY blood sugar diagnostic (FreeStyle Lite Strips) USE TO CHECK BLOOD SUGAR ONCE A DAY DIRECTED blood-glucose meter (FreeStyle [place] kit) Test blood sugar once a day cholecalciferol (vitamin D3) 50 mcg PO DAILY lancets (FreeStyle Lancets) Test blood sugar once a day losartan-hydrochlorothiazide 50-12.5 mg 1 tab PO DAILY HPI [facility] G0439 HPI Details Initiated the conversation about Advanced Directives. Advanced Directives help? patients prepare for current and future decisions about their medical treatment? and place of care. Discussed with patient that it is a process where a patients? current condition and prognosis are reviewed, their wishes for information? regarding their illness are elicited, and likely medical dilemmas are presented? and options discussed. The form can be amended as needed, reviewed yearly and? make changes as needed IPPE/AWV ? year old presents? for her ? Annual? Wellness Visit, initial visit.? Medical / Social History Reviewed? Past Medical History ?Yes? . ? [place]? of Care / Care Team list updated ?Yes . ? Surgical/Hospitalization? History ?Yes . ? Current Medications? (including OTC and supplements) ?Yes . ? Family History ?Yes? . ? Tobacco? Control form ?Yes . ? AUDIT-C (Alcohol use) form? ?Yes . ? Illicit drug use in Social? History ?Yes . ? Current diagnosis of? depression? ?No ? Appropriate PHQ2/PHQ9? completed ?Yes . ? Data entered by ?Medical? [employer] Developer and reviewed by provider ? Fall Risk ? Fall? History? Have you had any falls with? injury in the past year? ?No . ? Have you had two or more? falls in the past year? ?No . ? Fall Risk Assessment: ?No? falls in the past year . ? HRA filled out by? the patient, reviewed by Provider and scanned. ? IPPE/AWV ? Balance? [place]? ?Yes . ? Tandem? walk ?Yes . ? Walk and? Turn ?Yes . ? Rise from? sit to stand ?Yes . ?Vision? Corrective? lens ?Yes ? Vision? screen ? Up-to-date, has an appointment [] for vision? screening and glaucoma screening ?Hearing? Whisper? test ?pass .? Initiated the conversation about Advanced Directives. Advanced Directives help? patients prepare for current and future decisions about their medical treatment? and place of care. Discussed with patient that it is a process where a patients? current condition and prognosis are reviewed, their wishes for information? regarding their illness are elicited, and likely medical dilemmas are presented? and options discussed. The form can be amended as needed, reviewed yearly and? make changes as needed Written? Plan?Completed. See Patient? Documents. [facility], [facility] Medical History Vitamin D deficiency Diabetes Microalbuminuria Asthma History of TIAs HTN (hypertension) Surgical History H/O: hysterectomy Family History Father History of cancer Mother No problems noted. Social History Housing: House Patient Tobacco Use Status: Former Tobacco user e-Cigarette/Vaping Use: Never Used service: No Current occupational status: retired Cognitive needs: No Hearing needs: No Vision needs: Yes Questionnaire Medicare Wellness Checkup What is your age?: 82 or older What gender do you identify with?: female During the past 4 weeks, how much have you been bothered by emotional problems such as feeling anxious, depressed, irritable, sad or downhearted, and blue?: slightly During the past 4 weeks, has your physical & emotional health limited your social activities with family, friends, neighbors, or groups?: slightly During the past 4 weeks, how much bodily pain have you generally had?: mild pain During the past 4 weeks, was someone available to help you if you needed & wanted help?: yes, quite a bit During the past 4 weeks, what was the hardest physical activity you could do for at least 2 minutes?: moderate Can you get to places out of walking distance without help? (For eg., can you travel alone on buses, taxis or drive your car?): Yes Can you go shopping for groceries or clothes without someone's help?: Yes Can you prepare your own meals?: Yes Can you do your housework without help?: Yes Because of any health problems, do you need the help of another person with your personal care needs such as eating, bathing, dressing or getting around the house?: No Can you handle your own money without help?: Yes During the past 4 weeks, how would you rate your health in general?: good During the past 4 weeks how have things been going for you?: pretty well Are you having difficulties driving your car?: no Do you always fasten your seat belt when you are in a car?: yes, sometimes During past 4 weeks, have you been bothered by the following: never: Falling or dizzy when standing up, Sexual problems? and Teeth or denture problems?, seldom: Trouble eating well? and sometimes: Problems using the telephone? and Tiredness or fatigue? Have you fallen 2 or more times in the past year?: No Are you afraid of falling?: No Are you a smoker?: no During the past 4 weeks, how many drinks of wine, beer, or other alcoholic beverages did you have?: no alcohol at all Do you exercise for about 20 minutes 3 or more times a week?: yes, some of the time Have you been given information to help with the following?: no: Hazards in your house that might hurt you? and no: Keeping track of your medications? How often do you have trouble taking medicines the way you have been told to take them?: I always take medicine as prescribed How confident are you that you can control & manage most of your health problems?: very confident What is your race?: White Mini Mental State Exam (MMSE) Orientation What is the (year) (season) (date) (day) (month)?: year, season, date, day and month Where are we (state) (county) (town or city) (hospital) (floor)?: state, county, town or city, hospital/clinic and floor Registration Name of 3 unrelated objects clearly and slowly, then ask patient to repeat all 3 of them. (1st repeat determines score. Make sure they can repeat all three): object 1, object 2 and object 3 Attention & Calculation (CHOOSE ONE) Spell WORLD backwards (DLROW): 5 letters Recall Ask patient to repeat the 3 items from question #3.: object 1, object 2 and object 3 Language Show patient a wristwatch & ask what it is. Repeat for pencil.: watch and pencil Ask the patient to repeat the phrase 'No ifs, ands, or buts' after you.: correct Ask the patient to 'take a piece of paper with their right hand' 'fold paper in half' 'place paper on floor': take paper in right hand, fold paper in half and place paper on floor Print the sentence 'CLOSE YOUR EYES' on a piece. If patient actually closes eyes then score.: followed written direction Score Score: 28 Activity of Daily Living Bathing - sponge bath, tub bath or shower: receives no assistance (gets in/out by self, if usual bathing means Dressing - getting clothes from closets & drawers, including inner/outer garments & fasteners.: gets clothes & gets completely dressed without help Toileting - going to the 'toilet room' for urine/bowel elimination & cleaning self/arranging clothes: goes to toilet room, cleans self, arranges clothes without help Transfer: moves in & out of bed and chair without help (may use support object) Continence: controls urination/bowel movements completely by self Feeding: feeds self without help Total Score: 0 Information obtained from: patient Using telephone: independent Traveling: independent Shopping: independent Preparing meals: independent Housework: independent Taking medicine: independent Managing money: independent PHQ-9 Over the last 2 weeks, how often have you been bothered by any of the following problems? 1. Little interest or pleasure in doing things: not at all 2. Feeling down, depressed, or hopeless: not at all 3. Trouble falling or staying asleep, or sleeping too much: several days 4. Feeling tired or having little energy: several days 5. Poor appetite or overeating: not at all 6. Feeling bad about yourself - or that you are a failure or have let yourself or your family down: not at all 7. Trouble concentrating on things, such as reading the newspaper or watching television: not at all 8. Moving or speaking so slowly that other people could have noticed. Or the opposite - being so fidgety or restless that you have been moving around a lot more than usual: not at all 9. Thoughts that you would be better off or of hurting yourself in some way: not at all Total score: 2 Depression Screening Interpretation: Negative Depression Screening Done: Yes 34929 - PHQ-9 Billing: Yes Source: Developed by DrsMarianela Strong, Emma Maya, Celestino Franklin and colleagues, with an educational james from [employer]. Review of Systems Const All systems reviewed & are unremarkable except as noted in HPI and below Eyes Reports no additional complaints ENT Reports no additional complaints Card Reports no additional complaints Resp Reports no additional complaints GI Reports no additional complaints Reports no additional complaints Physical Exam Vital Signs: Last Vital Signs Pulse 70 04/23/24 10:07 BP 128/68 04/23/24 10:07 Pulse Ox 96 04/23/24 10:07 Oxygen Delivery Method Room Air 04/23/24 10:07 BMI result Body Mass Index 30.0 Const General: no acute distress HEENT Head: Yes normal to inspection Ears: hearing grossly normal bilaterally Neck Neck: Yes supple Resp Effort & Inspection: normal respiratory effort Auscultation: clear to auscultation bilaterally Cardio Rhythm: regular rhythm Heart sounds: S1 normal heart sound present and S2 normal heart sound present GI Inspection: Yes normal to inspection Palpation (GI): Soft to palpation Percussion: Yes normal to percussion Auscultation: normal bowel sounds Extrem General: Yes no clubbing, cyanosis or edema Assessment & Plan Assessment & Plan (1) HTN (hypertension): Comment: continue medications Code(s): I10 - Essential (primary) hypertension Plan: cont meds (2) Diabetes: Comment: A1c was 7.2, . Continue ADA diet increase physical activity weight loss discussed with the patient, pt declined med Code(s): E11.9 - Type 2 diabetes mellitus without complications Plan: A1C 7.2, ADA diet , increase exercise, patient declined taking medications follow-up in 6 months with the labs before (3) Annual physical exam: Code(s): Z00.00 - Encounter for general adult medical examination without abnormal findings Plan: well balanced diet, regular exercise, discussed (4) Vitamin D deficiency: Code(s): E55.9 - Vitamin D deficiency, unspecified Plan: Continue vitamin-D supplement Orders: Orders Comprehensive [place]. Panel Fast 6 Months E11.9 - Type 2 diabetes mellitus without complications, E55.9 - Vitamin D deficiency, unspecified, I10 - Essential (primary) hypertension Lipid Panel 6 Months E11.9 - Type 2 diabetes mellitus without complications, E55.9 - Vitamin D deficiency, unspecified, I10 - Essential (primary) hypertension Microalbumin, Random (w Creat) 6 Months E11.9 - Type 2 diabetes mellitus without complications, E55.9 - Vitamin D deficiency, unspecified, I10 - Essential (primary) hypertension Hemoglobin A1c 6 Months E11.9 - Type 2 diabetes mellitus without complications, E55.9 - Vitamin D deficiency, unspecified, I10 - Essential (primary) hypertension Vitamin D 25-OH Total 6 Months E11.9 - Type 2 diabetes mellitus without complications, E55.9 - Vitamin D deficiency, unspecified, I10 - Essential (primary) hypertension Quality Reporting (2020) Depression/Bipolar (159/160/161/177) PHQ-9: Total score: 2 Coding Level of Care Code Medicare Subsequent (G0439) Diagnoses HTN (hypertension) I10 Diabetes E11.9 Annual physical exam Z00.00 Vitamin D deficiency E55.9 CPT Codes Advance Care Planning - Advance Care Planning discussion: On file, no changes ([id number]) Advance Care Planning - Time spent: 1-15 minutes, on File ([id number]) Advance Care Planning Advance Care Planning discussion: On file, no changes Forms completed: Health Care Proxy Time spent: 1-15 minutes, on File
== END 2024-04-23 11:00 | disposition home or self-care (01) ==
PROVIDERS: PCP Internal Medicine; Visit Provider Internal Medicine
DX: Z00.00 Encounter for general adult medical examination without abnormal findings (principal); I10 Essential (primary) hypertension; E11.9 Type 2 diabetes mellitus without complications; E55.9 Vitamin D deficiency, unspecified
CPT/HCPCS: 1123F; G0439

== ENCOUNTER 2024-07-07 11:59 | Outpatient (AMB) | payer MEDICARE, OTHER, SELFPAY ==
--- NOTE | 2024-07-07 13:00 | MHC.OFFWIV ---
Intake Vital Signs 07/07/24 13:02 Weight 181 lb 6 oz BP 122/70 Blood Pressure Location Rt brachial Position Sitting Pulse 80 Pulse Source Pulse Oximeter Temp 97.8 F Temp Source Oral Pulse Oximetry (%) 94 Oxygen Delivery Method Room Air Intake Visit Reasons: EP- SOB, right ear clogged Intake Note: Patient here for SOB, right ear blockage. she states she blew her nose very hard one day and since then her ear has been feeling this way. Patient Tobacco Use Status: Former Tobacco user Allergies codeine Allergy (Unknown, Verified 07/07/24 13:03) vomitting Sulfa (Sulfonamide Antibiotics) Allergy (Unknown, Verified 07/07/24 13:03) hallucinating Do you need a note to return to daycare/school/sports/work: No HPI EP- SOB, right ear clogged HPI Details This note is constructed using voice recognition software. While every effort has been made to ensure accuracy, outpatient physical therapist assistant errors may have been included. The patient is a 84 year old female who presents to the clinic today with cough, shortness of breath, and right ear clogged. She notes that about a month ago she started with a cough, had an upper respiratory infection, where the majority of symptoms have resolved. Somewhere along the line she developed some dyspnea, which has progressively gotten worse since onset. About a week ago she also is in, when she felt a pop in her right ear, and has not been able to hear well since then. She denies any discharge from her ear. She has not had any fevers. She has been taking Tylenol and TheraFlu with limited relief of symptoms. She does note that she has had pneumonia before, and she does feel very similar in terms of her breathing. [facility] Medical History Vitamin D deficiency Diabetes Microalbuminuria Asthma History of TIAs HTN (hypertension) Surgical History H/O: hysterectomy Family History Father History of cancer Mother No problems noted. Social History Housing: House Patient Tobacco Use Status: Former Tobacco user e-Cigarette/Vaping Use: Never Used service: No Current occupational status: retired Cognitive needs: No Hearing needs: No Vision needs: Yes Review of Systems Const All systems reviewed & are unremarkable except as noted in HPI and below Physical Exam Vital Signs: Last Vital Signs Temp 97.8 F 07/07/24 13:02 Pulse 80 07/07/24 13:02 BP 122/70 07/07/24 13:02 Pulse Ox 94 07/07/24 13:02 Oxygen Delivery Method Room Air 07/07/24 13:02 Const General: cooperative, healthy appearing, comfortable and no acute distress Orientation/consciousness: patient oriented x3 Limitations: no limitations HEENT Head: Yes normal to inspection Ears: hearing grossly normal bilaterally, external ears normal and TM's normal bilaterally General nose exam: Normal external nose present, Normal nares present and No nasal discharge present Face and sinus: Yes normal facial exam and Yes sinuses nontender Mouth: Normal oral and palatal mucosa present and moist mucous membranes Throat: Yes tonsils normal, Yes uvula midline and Yes posterior oropharynx abnormal (Erythema) Eyes General: appearance normal, both eyes and all related structures Neck Neck: Yes normal visual inspection Resp Effort & Inspection: normal respiratory effort, able to speak in complete sentences, Actively coughing, no respiratory distress, not tachypneic, no tripod positioning and no use of accessory muscles Auscultation: rhonchi lower bilaterally Cardio Jugular venous distension: no JVD Rate: regular rate Rhythm: regular rhythm Heart sounds: S1 normal heart sound present, S2 normal heart sound present, no click, no gallops, no murmurs and no rubs Skin General skin exam: no rashes or lesions noted, elasticity normal and turgor normal Neuro General: patient oriented x3 Extrem General: Yes normal to inspection and Yes no clubbing, cyanosis or edema Assessment & Plan Assessment & Plan (1) Pneumonia: Code(s): J18.9 - Pneumonia, unspecified organism Qualifiers: Pneumonia type: due to unspecified organism Laterality: unspecified laterality Lung location: unspecified part of lung Qualified Code(s): J18.9 - Pneumonia, unspecified organism Plan: X-ray ordered to collaborate diagnostics. Antibiotics sent to requested pharmacy. Advised follow up with worsening symptoms such as dyspnea at rest, which would require emergent evaluation. Plan See above for full details and plan. Orders: Orders XR chest 2V Today R06.00 - Dyspnea, unspecified Medications: New amoxicillin 1,000 mg (2 x 500 mg) PO Q8H 42 caps 0RF 7 days Coding Level of Care Code Est Pt Level 3 (50341) Diagnoses Pneumonia due to infectious organism, unspecified laterality, unspecified part of lung J18.9 Pneumonia type: due to unspecified organism Laterality: unspecified laterality Lung location: unspecified part of lung
[2024-07-07 13:02] VITALS: BP 122/70; PULSE 80; TEMP 36.6; O2SAT 94
== END 2024-07-07 13:27 | disposition home or self-care (01) ==
PROVIDERS: PCP Internal Medicine; Visit Provider Registered Nurse
DX: J18.9 Pneumonia, unspecified organism (principal)

== ENCOUNTER 2024-07-07 11:59 | Outpatient (REF) | payer MEDICARE, OTHER, SELFPAY ==
--- NOTE | ~2024-07-07 | XR_ITS ---
EXAMINATION: XR CHEST CLINICAL INFORMATION: Dyspnea COMPARISON: X-ray 09/20/20192023 TECHNIQUE: 2 views of the chest were obtained. FINDINGS: The heart size within normal limits, similar to previous. Moderate-large right pleural effusion. Confluent opacification in the right lung base from atelectasis/consolidation. Hazy patchy left lower lung opacities. No pulmonary edema. No pneumothorax is seen.. XR/XR chest 2V IMPRESSION: Moderate-large right pleural effusion. Prominent right basilar opacification. Hazy patchy left lung opacities. This may reflect atelectasis or inflammatory/infectious process. Recommend follow-up imaging to resolution. Electronically signed by: Sameer Green MD 07/07/2024 06:00 PM [facility]
== END 2024-07-07 12:00 | disposition home or self-care (01) ==
LOC: HO.HMGCX 11:59
PROVIDERS: PCP Internal Medicine; Visit Provider Registered Nurse
DX: R06.00 Dyspnea, unspecified (principal); J18.9 Pneumonia, unspecified organism
CPT/HCPCS: 71046; 99212

== ENCOUNTER 2024-07-14 10:44 | Outpatient (AMB) | payer MEDICARE, OTHER, SELFPAY ==
[2024-07-14 11:09] VITALS: BP 138/66; PULSE 63; O2SAT 94; BMI 28.9
--- NOTE | 2024-07-14 11:09 | MHC.PC.OV ---
Vital Signs 07/14/24 11:09 Height 5 ft 6 in Weight 179 lb BMI 28.9 BP 138/66 Blood Pressure Location Lt brachial Position Sitting Pulse 63 Pulse Source Pulse Oximeter Pulse Oximetry (%) 94 Oxygen Delivery Method Room Air Intake Visit Reasons: Followup pneumonia Allergies codeine Allergy (Unknown, Verified 07/14/24 11:13) vomitting Sulfa (Sulfonamide Antibiotics) Allergy (Unknown, Verified 07/14/24 11:13) hallucinating Medication List - Last Reconciled 07/14/24 by Pascale Johnson MD albuterol sulfate 90 mcg/actuation 2 puffs inhalation Q6H atenolol 50 mg PO DAILY blood sugar diagnostic (JobzleStyle Lite Strips) USE TO CHECK BLOOD SUGAR ONCE A DAY DIRECTED blood-glucose meter ([email or web address] [place] kit) Test blood sugar once a day cholecalciferol (vitamin D3) 50 mcg PO DAILY lancets (JobzleStyle Lancets) Test blood sugar once a day losartan-hydrochlorothiazide 50-12.5 mg 1 tab PO DAILY Tobacco use date assessed: 07/14/24 Dental Screening Dental Screen Date: 01/27/24 HPI Followup pneumonia HPI Details Patient presents complaining of shortness of breaths and right-sided chest pressure discomfort with breathing for 2 weeks. Patient was treated with Augmentin and azithromycin for 1 week without significant improvement. She denies cough fever chills. Chest x-ray in in walk in showed right moderate to large pleural effusion, prominent right basilar opacification hazy patchy left lung opacities. [facility] Medical History Vitamin D deficiency Diabetes Microalbuminuria Asthma History of TIAs HTN (hypertension) Surgical History H/O: hysterectomy Family History Father History of cancer Mother No problems noted. Social History Housing: House Patient Tobacco Use Status: Former Tobacco user e-Cigarette/Vaping Use: Never Used service: No Current occupational status: retired Cognitive needs: No Hearing needs: No Vision needs: Yes Questionnaire Thrive Questionnaire Date Thrive assessed: 04/23/24 I am a: Patient What is your living situation today?: I have a steady place to live Within the past 12 months, did the food you bought not last and you didn't have the money to get more?: Never true Within the past 12 months, did you worry whether your food would run out before you got money to buy more?: Never true Do you have trouble paying for medicines?: No Do you have trouble getting transportation to medical appointments?: No Do you have trouble paying your heating and electricity bill?: No Do you have trouble taking care of your child, family member or friend?: No Do you have trouble with day-to-day activities such as bathing, preparing meals, shopping, managing finances, etc.?: No Are you currently unemployed and looking for a job?: No Are you interested in more education?: Yes Please select the resources that you would like help with: None Currently or been in a relationship where the following occur: No concerns reported THRIVE Score: 0 KELLIE-7 AMB Questionnaire KELLIE-7 Date KELLIE - 7 assessed: 09/22/23 Source: Developed by Drs. Chetan Strong, Emma Maya, Celestino Franklin and colleagues, with an educational james from [employer]. Review of Systems Const All systems reviewed & are unremarkable except as noted in HPI and below ENT Reports no additional complaints Card Reports no additional complaints Resp Reports no additional complaints GI Reports no additional complaints Physical exam (Primary Care) Vital Signs: Last Vital Signs Pulse 63 07/14/24 11:09 BP 138/66 07/14/24 11:09 Pulse Ox 94 07/14/24 11:09 Oxygen Delivery Method Room Air 07/14/24 11:09 BMI result Body Mass Index 28.9 Tobacco/Smoking Status: Tobacco use Status Tobacco use date assessed 07/14/24 07/14/24 11:16 Patient Tobacco Use Status Former Tobacco user 07/14/24 11:11 e-Cigarette/Vaping Use Never Used 07/14/24 11:11 Thrive Assessment: Date of Thrive Assessment Date Thrive assessed 04/23/24 07/14/24 11:11 Currently or been in a relationship where the following occur: No concerns reported Const General: no acute distress HENMT Head: Yes normal to inspection Mouth: Normal oral and palatal mucosa present Neck Neck: Yes no lymphadenopathy and Yes supple Resp Effort & Inspection: able to speak in complete sentences and uses accessory muscles Auscultation: diminished lung sounds on the right throughout Percussion: dullness Mid: right and Lower: right Cardio Rhythm: regular rhythm Heart sounds: S1 normal heart sound present and S2 normal heart sound present Coding Level of Care Code Est Pt Level 3 (40536) Diagnoses Pleural effusion, right J90 Assessment & Plan Assessment & Plan (1) Pleural effusion, right: Code(s): J90 - Pleural effusion, not elsewhere classified Category: Medical Plan: For not improving right pleural effusion and moderate respiratory distress patient was advised to go to the emergency room for the evaluation and thoracocentesis
== END 2024-07-14 11:43 | disposition home or self-care (01) ==
PROVIDERS: PCP Internal Medicine; Visit Provider Internal Medicine
DX: J90 Pleural effusion, not elsewhere classified (principal)

== ENCOUNTER → 2024-07-14 10:44 | Outpatient (BNVA) | payer MEDICARE, OTHER, SELFPAY | PROVIDERS: PCP Internal Medicine; Visit Provider Internal Medicine | DX: J90 Pleural effusion, not elsewhere classified (principal) | CPT/HCPCS: 99212 ==

== ENCOUNTER 2024-07-22 11:12 | Outpatient (AMB) | payer MEDICARE, OTHER, SELFPAY ==
--- NOTE | 2024-07-22 11:20 | MHC.PC.OV ---
Vital Signs 07/22/24 11:22 Height 5 ft 6 in Weight 174 lb BMI 28.1 BP 124/66 Blood Pressure Location Lt brachial Position Sitting Pulse 60 Pulse Source Pulse Oximeter Pulse Oximetry (%) 94 Oxygen Delivery Method Room Air Intake Visit Reasons: Hospital follow up Intake Note: Pt is here today for Hospital follow up visit. Allergies codeine Allergy (Unknown, Verified 07/22/24 11:24) vomitting Sulfa (Sulfonamide Antibiotics) Allergy (Unknown, Verified 07/22/24 11:24) hallucinating Medication List - Last Reconciled 07/22/24 by Pascale Johnson MD albuterol sulfate 90 mcg/actuation 2 puffs inhalation Q6H atenolol 50 mg PO DAILY blood sugar diagnostic (dondeEsta™yle Lite Strips) USE TO CHECK BLOOD SUGAR ONCE A DAY DIRECTED blood-glucose meter (dondeEsta™yle [place] kit) Test blood sugar once a day cholecalciferol (vitamin D3) 50 mcg PO DAILY lancets ([employer] One Stop SalonStyle Lancets) Test blood sugar once a day losartan-hydrochlorothiazide 50-12.5 mg 1 tab PO DAILY Tobacco use date assessed: 07/14/24 Dental Screening Dental Screen Date: 01/27/24 HPI Hospital follow up HPI Details Pt presents for f/u ER visit for symptomatic large right pleural effusion paracentesis. CT of the chest which showed pleural effusion and question of infiltrate or mass in the right lower lobe. Patient is awaiting results of pleural fluid cytology and culture. She is feeling better dyspnea on exertion improved significantly. Patient denies fever chills or pleurisy PFSH Medical History Vitamin D deficiency Diabetes Microalbuminuria Asthma History of TIAs HTN (hypertension) Surgical History H/O: hysterectomy Family History Father History of cancer Mother No problems noted. Social History Housing: House Patient Tobacco Use Status: Former Tobacco user e-Cigarette/Vaping Use: Never Used service: No Current occupational status: retired Cognitive needs: No Hearing needs: No Vision needs: Yes Questionnaire Thrive Questionnaire Date Thrive assessed: 04/23/24 I am a: Patient What is your living situation today?: I have a steady place to live Within the past 12 months, did the food you bought not last and you didn't have the money to get more?: Never true Within the past 12 months, did you worry whether your food would run out before you got money to buy more?: Never true Do you have trouble paying for medicines?: No Do you have trouble getting transportation to medical appointments?: No Do you have trouble paying your heating and electricity bill?: No Do you have trouble taking care of your child, family member or friend?: No Do you have trouble with day-to-day activities such as bathing, preparing meals, shopping, managing finances, etc.?: No Are you currently unemployed and looking for a job?: No Are you interested in more education?: Yes Please select the resources that you would like help with: None Currently or been in a relationship where the following occur: No concerns reported THRIVE Score: 0 KELLIE-7 AMB Questionnaire KELLIE-7 Date KELLIE - 7 assessed: 09/22/23 Source: Developed by Drs. Chetan Strong, Emma Maya, Celestino Franklin and colleagues, with an educational james from [employer] Review of Systems Const All systems reviewed & are unremarkable except as noted in HPI and below Eyes Reports no additional complaints ENT Reports no additional complaints Card Reports no additional complaints Resp Reports no additional complaints GI Reports no additional complaints Physical exam (Primary Care) Vital Signs: Last Vital Signs Pulse 60 07/22/24 11:22 BP 124/66 07/22/24 11:22 Pulse Ox 94 07/22/24 11:22 Oxygen Delivery Method Room Air 07/22/24 11:22 BMI result Body Mass Index 28.1 Tobacco/Smoking Status: Tobacco use Status Tobacco use date assessed 07/14/24 07/22/24 11:20 Patient Tobacco Use Status Former Tobacco user 07/22/24 11:20 e-Cigarette/Vaping Use Never Used 07/22/24 11:20 Thrive Assessment: Date of Thrive Assessment Date Thrive assessed 04/23/24 07/22/24 11:20 Currently or been in a relationship where the following occur: No concerns reported Const General: no acute distress HENMT Face and sinus: Yes normal facial exam Neck Neck: Yes supple Chest Chest palpation & inspection: normal inspection of the chest Resp Effort & Inspection: normal respiratory effort Auscultation: diminished lung sounds on the right Cardio Rhythm: regular rhythm Heart sounds: S1 normal heart sound present and S2 normal heart sound present Coding Level of Care Code Est Pt Level 3 (76013) Diagnoses Pleural effusion, right J90 Assessment & Plan Assessment & Plan (1) Pleural effusion, right: Code(s): J90 - Pleural effusion, not elsewhere classified Category: Medical Plan: Repeat chest x-ray to evaluate for recurrent effusion today. 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 Orders: Orders XR chest 2V Today J90 - Pleural effusion, not elsewhere classified Referrals Pulmonology Referral J90 - Pleural effusion, not elsewhere classified
[2024-07-22 11:22] VITALS: BP 124/66; PULSE 60; O2SAT 94; BMI 28.1
== END 2024-07-22 13:03 | disposition home or self-care (01) ==
PROVIDERS: PCP Internal Medicine; Visit Provider Internal Medicine
DX: J90 Pleural effusion, not elsewhere classified (principal)

== ENCOUNTER 2024-07-22 11:12 | Outpatient (REF) | payer MEDICARE, OTHER, SELFPAY | END 2024-07-22 11:13 | disposition home or self-care (01) | LOC: HO.HMGCX 11:12 | PROVIDERS: PCP Internal Medicine; Visit Provider Internal Medicine | DX: J90 Pleural effusion, not elsewhere classified (principal) | CPT/HCPCS: 71046; 99212 ==

== ENCOUNTER 2024-10-25 12:30 | Outpatient (AMB) | payer MEDICARE, OTHER, SELFPAY ==
[2024-10-25 12:30] VITALS: BP 106/60; PULSE 69; RESP 18; TEMP 36.6; O2SAT 95; BMI 26.8
--- NOTE | 2024-10-25 12:30 | A.OFFPC_ITS ---
Vital Signs 10/25/24 12:30 Height 5 ft 6 in Weight 166 lb BMI 26.8 BP 106/60 Blood Pressure Location Lt brachial Position Sitting Respiration 18 Pulse 69 Pulse Source Pulse Oximeter Temp 97.8 F Temp Source Oral Pulse Oximetry (%) 95 Oxygen Delivery Method Room Air Intake Visit Reasons: 6 months follow up Intake Note: Pt is here today for 6 months follow up visit. Allergies codeine Allergy (Unknown, Verified 10/25/24 12:33) vomitting Sulfa (Sulfonamide Antibiotics) Allergy (Unknown, Verified 10/25/24 12:33) hallucinating Medication List - Last Reconciled 10/25/24 by Pascale Johnson MD albuterol sulfate 90 mcg/actuation 2 puffs inhalation Q6H atenolol 50 mg PO DAILY blood sugar diagnostic (ManagerCompleteStyle Lite Strips) USE TO CHECK BLOOD SUGAR ONCE A DAY DIRECTED blood-glucose meter (ManagerCompleteStyle [place] kit) Test blood sugar once a day cholecalciferol (vitamin D3) 50 mcg PO DAILY lancets (FreeStyle Lancets) Test blood sugar once a day losartan-hydrochlorothiazide 50-12.5 mg 1 tab PO DAILY nystatin 1 appl topical BID Tobacco use date assessed: 10/25/24 Fall risk assessment: No Falls in past year Last assessed Fall Risk: 10/25/24 Dental Screening Dental Screen Date: 10/25/24 Did you have a dental visit in the last 12 months?: Yes Did you have a dental problem in the last 6 months where you did not have access to dental care?: No Was dental information given to patient?: Patient has dentist HPI 6 months follow up HPI Details Pt presents for f/u for HTN, diet controlled DM. Pt started chemotherapy for metastatic lung adenocarcinoma and follow-up with oncology at [facility] Medical History (Updated 10/25/24 @ 13:34 by Pascale Johnson MD) Vitamin D deficiency Diabetes Microalbuminuria Asthma History of TIAs HTN (hypertension) Surgical History H/O: hysterectomy Family History Father History of cancer Mother No problems noted. Social History Housing: House Patient Tobacco Use Status: Former Tobacco user e-Cigarette/Vaping Use: Never Used service: No Current occupational status: retired Cognitive needs: No Hearing needs: No Vision needs: Yes Questionnaire Thrive Questionnaire Date Thrive assessed: 10/25/24 I am a: Patient What is your living situation today?: I have a steady place to live Within the past 12 months, did the food you bought not last and you didn't have the money to get more?: Never true Within the past 12 months, did you worry whether your food would run out before you got money to buy more?: Never true Do you have trouble paying for medicines?: No Do you have trouble getting transportation to medical appointments?: No Do you have trouble paying your heating and electricity bill?: No Do you have trouble taking care of your child, family member or friend?: No Do you have trouble with day-to-day activities such as bathing, preparing meals, shopping, managing finances, etc.?: No Are you currently unemployed and looking for a job?: No Are you interested in more education?: No Please select the resources that you would like help with: None THRIVE Score: 0 AUDIT C Alcohol Use Questionnaire (AUDIT-C) 1. How often do you have a drink containing alcohol?: Never 3. How often do you have six or more drinks on one occasion?: Never Total Score: 0 KELLIE-7 AMB Questionnaire KELLIE-7 Date KELLIE - 7 assessed: 10/25/24 Feeling nervous, anxious, or on edge: 0 = Not at all Not being able to stop or control worryin = Not at all Worrying too much about different things: 0 = Not at all Trouble relaxin = Not at all Being so restless that it is hard to sit still: 0 = Not at all Becoming easily annoyed or irritable: 0 = Not at all Feeling afraid as if something awful might happen: 0 = Not at all Total KELLIE-7 score (0-4 normal; 5-9 mild; 10-14 moderate; 15-21 severe): 0 Source: Developed by Drs. Chetan Strong, Emma Maya, Celestino Franklin and colleagues, with an educational james from [employer]. KELLIE-7 Assessment Billing KELLIE-7 Assessment Tool: KELLIE-7 Assessment 99367 Review of Systems Const All systems reviewed & are unremarkable except as noted in HPI and below ENT Reports no additional complaints Card Reports no additional complaints Resp Reports no additional complaints GI Reports no additional complaints Reports no additional complaints Physical exam (Primary Care) Vital Signs: Last Vital Signs Temp 97.8 F 10/25/24 12:30 Pulse 69 10/25/24 12:30 Resp 18 10/25/24 12:30 BP 106/60 10/25/24 12:30 Pulse Ox 95 10/25/24 12:30 Oxygen Delivery Method Room Air 10/25/24 12:30 BMI result Body Mass Index 26.8 Tobacco/Smoking Status: Tobacco use Status Tobacco use date assessed 10/25/24 10/25/24 12:39 Patient Tobacco Use Status Former Tobacco user 10/25/24 12:39 e-Cigarette/Vaping Use Never Used 10/25/24 12:39 Thrive Assessment: Date of Thrive Assessment Date Thrive assessed 10/25/24 10/25/24 12:39 Const General: no acute distress HENMT Head: Yes normal to inspection Resp Effort & Inspection: normal respiratory effort Auscultation: diminished lung sounds Cardio Rhythm: regular rhythm Heart sounds: S1 normal heart sound present and S2 normal heart sound present GI Inspection: Yes normal to inspection Palpation (GI): Soft to palpation Percussion: Yes normal to percussion Coding Level of Care Code Est Pt Level 4 (44532) Diagnoses HTN (hypertension) I10 Diabetes E11.9 Adenocarcinoma of lung, stage 4 C34.90 Additional Codes KELLIE-7 Assessment Billing - KELLIE-7 Assessment Tool: KELLIE-7 Assessment 99082 ([id number]) Assessment & Plan Assessment & Plan (1) HTN (hypertension): Comment: continue medications Code(s): I10 - Essential (primary) hypertension Category: Medical Plan: Continue current medication check comprehensive panel today (2) Diabetes: Comment: A1c was 7.2, . Continue ADA diet increase physical activity weight loss discussed with the patient, pt declined med Code(s): E11.9 - Type 2 diabetes mellitus without complications Category: Medical Plan: Check A1c, ADA diet regular physical activity discussed with the patient (3) Adenocarcinoma of lung, stage 4: Comment: recurrent pleural R effusion, pleural Pleurx, on chemo Brenda 09/2024 Code(s): C34.90 - Malignant neoplasm of unspecified part of unspecified bronchus or lung Category: Medical Plan: Follow-up with oncology Orders: Orders Hemoglobin A1c Today C34.90 - Malignant neoplasm of unspecified part of unspecified bronchus or lung, E11.9 - Type 2 diabetes mellitus without complications, I10 - Essential (primary) hypertension Hemoglobin A1c 6 Months E11.9 - Type 2 diabetes mellitus without complications, I10 - Essential (primary) hypertension Comprehensive [place]. Panel Fast 6 Months E11.9 - Type 2 diabetes mellitus without complications, I10 - Essential (primary) hypertension Complete Blood Count Auto Diff Today C34.90 - Malignant neoplasm of unspecified part of unspecified bronchus or lung, E11.9 - Type 2 diabetes mellitus without complications, I10 - Essential (primary) hypertension Comprehensive Met. Panel Today C34.90 - Malignant neoplasm of unspecified part of unspecified bronchus or lung, E11.9 - Type 2 diabetes mellitus without complications, I10 - Essential (primary) hypertension Complete Blood Count Auto Diff 6 Months E11.9 - Type 2 diabetes mellitus without complications, I10 - Essential (primary) hypertension
--- OUTSIDE RECORDS SUMMARY | 2024-10-25 14:13 | XMS_ITS | Encounter Summary ---
Author Organization [facility] Address [id number] [place] [phone] Care Team Providers Care Bagel Maker Name Role Phone Pascale Johnson MD Primary Care Provider [phone] Reason for Visit * Reason Comments Follow-up P.cath check Encounter Details Date Type Department Care Team (Late st Contact Info) Description 09/30/2024 9:30 AM EST Office Visit Pulmonology - [address] [place] [phone] Yesenia Knight MD [address] [place] [address] Primary adenocarcinoma of lung, unspecified laterality (CMS/HCC) (Primary Dx); Malignant pleural effusion (CMS/HCC) Social History Tobacco Use Types Packs/Day Years Used Date Smoking Tobacco: Former Cigarettes Q uit: 07/14/2004 Passive Smoke Exposure: Past Smokeless Tobacco: Never Alcohol Use Standard Drinks/Week Comments Not Currently 0 (1 standard drink = 0.6 oz pur e alcohol) Interpersonal Safety Answer Date Record ed Physical Abuse 07/14/2024 Verbal Abuse 07/14/2024 Comments Unknown Sex and Gender Information Value Date Recorded Sex Assigned at Female 07/14/2024 5:51 PM EST Legal Sex Female 1:49 PM EST Gender Identity Female 07/14/2024 5:51 PM EST Sexual Orientation Straight 08/17/2024 5: 58 AM EST documented as of this encounter Last Filed Vital Signs Vital Sign Reading Time Taken Comments Blood Pressure 140/61 09/30/2024 9:39 AM EST Pulse 70 09/30/2024 9:39 AM EST Temperature 37 ??C (98.6 ??F) 09/30/2024 9:39 AM EST Respiratory Rate 16 09/30/2024 9:39 AM EST Oxygen Saturation 97% 09/30/2024 9:39 AM EST Inhaled Oxygen Concentration - - Weight 75.8 kg (167 lb 3.2 oz) 09/30/2024 9:39 A M EST Height 167.6 cm (5' 6 ) 09/30/2024 9:39 AM EST Body Mass Index 26.99 09/30/2024 9:39 AM EST documented in this encounter Progress Notes * Yesenia Knight MD - 09/30/2024 9:30 AM EST Images from the original note were not included. 09/30/2024 Eugenia Eagle : 1940 PCP: Pascale Johnson MD Chief Complaint:: pleural effusion History of Present Illness: Eugenia Eagle is a 84 y.o. female former 80 pack year smoker, PMH HTN, asthma, IBS, recent dx PNA, and metastatic lung adenocarcinoma dx with new R effusion who presents to IP clinic for pleural effusion. Pt was recently hospitalized for SOB. Found to have new R pleural effusion s/p thoracentesis (1 L fluid removed, mixed cellularity appears to be uncomplicated exudate though no glucose, cytology positive for adeno, +KRAS). No post thora CXR.. CT chest also showed lung nodule/lymphadenopathy. Patient reports at least two months of increasing SOB, RASHEED. She has chronic LE edema, no orthopnea.No chest pain, unintended wt loss, F/C. She has seen Dr. Jacobs in Medical Oncology and is recommended to start treatment. She reports feeling much better post thoracentesis but that SOB has now returned. No chest pain. Difficulty with doing ADLs and stair climbing due to SOB. Has intermittent dry cough. S/p right pleurx 08/17/24. VNA draining Sat 200-400 mL each time. Site is clean, drianage is serous. Pt reports no issues with SOB, improvement with this. PET scan was done Seeing Dr. Jacobs and recommended for systemic therapy with Keytruda/Alimta Allergies: Allergies Allergen Reactions Sulfa (Sulfonamide Antibiotics) Hallucinations and Renal Impairment Codeine Nausea And Vomiting Medications: Current Outpatient Medications Medication Instructions albuterol HFA (PROAIR HFA ; PROVENTIL HFA ; VENTOLIN HFA) 90 mcg/actuation inhaler 1 puff, inhalation, Every 6 hours PRN atenoloL (TENORMIN) 50 mg, oral, Daily dexAMETHasone (DECADRON) 4 mg, oral, Daily, Take 1 tablet by mouth with breakfast and morning on day before chemotherapy and the day after chemotherapy folic acid (FOLVITE) 1 mg, oral, Daily losartan-hydroCHLOROthiazide (HYZAAR) 50-12.5 mg per tablet 1 tablet, oral, Daily ondansetron (ZOFRAN) 8 mg, oral, Every 8 hours PRN Trelegy Ellipta 100-62.5-25 mcg inhaler Past Medical History: Diagnosis Date Asthma Bleeding internal hemorrhoids Blindness cataracts Dental disease full set Diabetes mellitus (CMS/HCC) diet controlled History of transfusion HL (hearing loss) Hypertension IBS (irritable bowel syndrome) Joint pain PONV (postoperative nausea and vomiting) Past Surgical History: Procedure Laterality Date EYE SURGERY glaucoma HYSTERECTOMY No family history on file. Social History Socioeconomic History Marital status: Spouse name: Not on file Number of children: Not on file Years of education: Not on file Highest education level: Not on file Occupational History Not on file Tobacco Use Smoking status: Former Current packs/day: 0.00 Types: Cigarettes Quit date: 07/14/2004 Years since quittin.2 Passive exposure: Past Smokeless tobacco: Never Substance and Sexual Activity Alcohol use: Not Currently Drug use: Never Sexual activity: Not on file Other Topics Concern Not on file Social History Narrative Not on file Review of Systems Constitutional: Negative. HENT: Negative. Eyes: Negative. Respiratory: See HPI otherwise negative Cardiovascular: Negative. Gastrointestinal: Negative. Endocrine: Negative. Genitourinary: Negative. Musculoskeletal: Negative. Skin: Negative. Breast: negative. Allergic/Immunologic: Negative. Neurological: Negative. Hematological: Negative. Psychiatric/Behavioral: Negative. Vitals: 09/30/24 0939 BP: (!) 140/61 Pulse: 70 Resp: 16 Temp: 37 ??C (98.6 ??F) SpO2: 97% Body mass index is 26.99 kg/m??. General: No acute distress HEENT: mucous membranes moist Neck: no JVD, supple neck Chest: Clear to auscultation, no wheezing or rales, no accessory muscle use CVS: S1-S2, regular rhythm, no murmurs Abdomen: Nondistended Extremities: 1+ pitting edema, warm Skin: No rashes or lesions Neuro: Alert and oriented x 3 Lab Results Component Value Date ALBUMIN 3.1 (L) 09/15/2024 ALT 15 09/15/2024 AST 9 (L) 09/15/2024 BUN 23 09/15/2024 CALCIUM 8.9 09/15/2024 CL 104 09/15/2024 CO2 30 09/15/2024 CREATININE 0.96 09/15/2024 HCT 40.0 09/15/2024 HGB 13.3 09/15/2024 MG 2.2 07/14/2024 PLT 208 09/15/2024 K 3.4 (L) 09/15/2024 NA 139 09/15/2024 WBC 6.3 09/15/2024 Pulmonary Function Results: Imaging: I personally reviewed imaging and the data revealed: R loculated pleural effusion, R hilar lymphadenopathy, RML atelectasis US 09/30/24: PET CT 08/2024: CTA chest: US R chest 08/12/24: Visit Diagnoses: 1. Primary adenocarcinoma of lung, unspecified laterality (CMS/HCC) 2. Malignant pleural effusion (CMS/HCC) Impression: Stage IV lung adenocarcinoma with R malignant pleural effusion, recurrent and symptomatic We discussed options including repeat thoracentesis (least preferred) vs definitive treatment with R pleurx vs R pleurodesis (rapid pleurodesis protocol with pleurx placement) for palliation of symptoms. Ultimately through discussion decided to proceed with pleurx placement after discussion of risks, benefits, indications, and expected recovery. R pleurx placed 08/2024 and she is doing well with this, drainage 200-400 mL serous, tapering off. Site is clean. Has a rash under breast away from pleurx site, as well as anterior chest for which she has been given nystatin powder. Rash improved on back. Not vesicular, not dermatomal, and does not have symptoms such as pain, do not suspect VZV Recommendations: -Continue 3x weekly drainage, I drained 225 mL serous fluid today, site is clean -6-8 week IP follow up -Cont Onc care with Dr. Jacobs Today I have spent 42 minutes on this encounter with the following activities: Pre-visit review of chart Pre-visit review of imaging Reviewing patient provided information Pleurx drainage Chest US Personal face to face with patient (including discussion counseling) History and physical examination Medication reconciliation Discussion of laboratory results and pathology Discussion with consulting/referring physician(s) Coordination of care including with office staff and nurse navigation Documentation. Yesenia Knight MD [place] [address] Office [phone] documented in this encounter Plan of Treatment Upcoming Encounters Date Type Department Care Team (Late st Contact Info) Description 10/26/2024 10:00 AM EST Office Visit [facility] Hematology Oncology [address] [place] [phone] Elder Jacobs MD [address] [place] [phone] 11/01/2024 1:00 PM EST Appointment [facility] [address] [place] [phone] documented as of this encounter Visit Diagnoses Diagnosis Primary adenocarcinoma of lung, unspecified laterality (CMS/HCC)- Primary Malignant pleural effusion (CMS/HCC) Malignant pleural effusion documented in this encounter Care Teams Bagel Maker Relationship Specialty Start Date End Date Pascale Johnson MD [address] [place] [phone] PCP - General Internal Medicine 07/14/24 documented as of this encounter
--- OUTSIDE RECORDS SUMMARY | 2024-10-25 14:13 | XMS_ITS ---
Author Organization [facility] Address [address] [place] [address] Phone Care Team Providers Care Co Founder & Ceo Name Role Phone Pascale Johnson MD Primary Care Provider [phone] Active Problems Problem Noted Date Diagnosed Date Primary adenocarcinoma of right lung 09/16/2024 Hypothyroidism (acquired) 09/16/2024 Pleural effusion, malignant 08/12/2024 IBS (irritable bowel syndrome) Current Oncology Plans Pembrolizumab + PEMEtrexed* Plan Start Date:09/17/2024 Plan Provider:Elder Jacobs MD Linked Problems Primary adenocarcinoma of ri ght lung (CMS/HCC)Pleural effusion, malignant (CMS/HCC)Hypothyroidism (acquired) Treatment Medications Current Day (Day 1 , Cycle 3 - Planned for 10/29/2024) Next Day (Day 1, Cycle 4 - Planned for 11/19/2024) pembrolizumab (KEYTRUDA)pembrolizumab (KEYTRUDA) chemo IVPB (adult)PEMEtrexed (ALIMTA)PEMEtrexed (ALIMTA) chemo IVPB in 100 mL NS pembrolizumab (KEYTRUDA) 200 mg in sodium chloride 108 mL chemo IVPBPEMEtrexed disodium (ALIMTA) 875 mg in sodium chloride 0.9 % 100 mL chemo IVPB pembrolizumab (KEYTRUDA) 200 mg in sodium chloride 108 mL chemo IVPBPEMEtrexed disodium (ALIMTA) 875 mg in sodium chloride 0.9 % 100 mL chemo IVPB Past Plans No past plan information found. Radiation Treatments * No radiation treatments are documented for this patient in [facility]. Treatments may have been administered in another system. Resolved Problems Problem Noted Date Diagnosed Date Resolved Date Pleural effusion 07/14/2024 07/15/2024
--- OUTSIDE RECORDS SUMMARY | 2024-10-25 14:13 | XMS_ITS | Clinical Summary ---
Author Organization [facility] Address [address] [place] [address] Phone Care Team Providers Care Talent Agent Name Role Phone Pascale Johnson MD Primary Care Provider [phone] Allergies Active Allergy Reactions Criticality Noted Date Comments Codeine Nausea And Vomiting 07/14/2024 Sulfa (Sulfonamide Antibiotics) Hallucinations,Renal Impairment High 07/14/2024 Medications losartan-hydroC HLOROthiazide (HYZAAR) 50-12.5 mg per tablet Take 1 tablet by mouth 1 (one) time each day. 4 Active atenoloL (TENORMIN) 50 mg tablet Take 1 tablet (50 mg total) by mouth 1 (one) time each day. 4 Active albuterol HFA (PROAIR HFA ; PROVENTIL HFA ; VENTOLIN HFA) 90 mcg/actuation inhaler Inhale 1 puff by mouth every 6 (six) hours if needed. 4 Active folic acid (FOLVITE) 1 mg tablet Take 1 tablet (1 mg total) by mouth 1 (one) time each day. 30 each 5 4 02/08/20 25 Active dexAMETHasone (DECADRON) 4 mg tablet Take 1 tablet (4 mg total) by mouth 1 (one) time each day. Take 1 tablet by mouth with breakfast and morning on day before chemotherapy and the day after chemotherapy 6 each 2 5 12/10/19 25 Active ondansetron (ZOFRAN) 8 mg tabletIndicatio ns:Malignant pleural effusion (CMS/HCC),Prima ry lung adenocarcinoma, right (CMS/HCC) Take 1 tablet (8 mg total) by mouth every 8 (eight) hours if needed for nausea or vomiting. 30 tablet 2 5 12/10/19 25 Active Trelegy Ellipta 100-62.5-25 mcg inhaler 5 Active Active Problems Problem Noted Date Diagnosed Date Primary adenocarcinoma of right lung 09/16/2024 Hypothyroidism (acquired) 09/16/2024 Pleural effusion, malignant 08/12/2024 IBS (irritable bowel syndrome) Resolved Problems Problem Noted Date Diagnosed Date Resolved Date Pleural effusion 07/14/2024 07/15/2024 Encounters Date Type Department Care Team Description 10/08/2024 12:54 PM EST - 10/08/2024 11:59 PM EST Hospital Encounter [facility] [address] [place] [phone] Elder Jacobs MD Primary adenocarcinoma of right lung (CMS/HCC) (Primary Dx); Pleural effusion, malignant (CMS/HCC); Hypothyroidism (acquired) Discharge Disposition: Home or Self Care 10/06/2024 9:45 AM EST Office Visit [facility] Hematology Oncology [address] [place] [phone] Elder Jacobs MD Primary adenocarcinoma of right lung (CMS/HCC) (Primary Dx); Hypothyroidism (acquired) 09/30/2024 9:30 AM EST Office Visit Pulmonology - Pain[facility] [address] [place] [phone] Yesenia Knight MD Primary adenocarcinoma of lung, unspecified laterality (CMS/HCC) (Primary Dx); Malignant pleural effusion (CMS/HCC) 09/17/2024 10:21 AM EST - 09/17/2024 11:59 PM EST Hospital Encounter [address] [phone] Elder Jacobs MD Primary adenocarcinoma of right lung (CMS/HCC) (Primary Dx); Pleural effusion, malignant (CMS/HCC); Hypothyroidism (acquired) Discharge Disposition: Home or Self Care 09/17/2024 Social Work [facility] [address] [place] [phone] Freddy Partida LMSW 09/15/2024 11:06 AM EST - 09/15/2024 11:59 PM EST Hospital Encounter [facility] [address] [place] [phone] Elder Jacobs MD Pleural effusion, malignant (CMS/HCC) (Primary Dx) Discharge Disposition: Home or Self Care 09/08/2024 9:00 AM EST Office Visit [facility] Hematology Oncology [address] [place] [phone] Elder Jacobs MD Pleural effusion, malignant (CMS/HCC) (Primary Dx); Malignant pleural effusion (CMS/HCC); Primary lung adenocarcinoma, right (CMS/HCC) 08/18/2024 11:18 AM EST - 08/18/2024 11:59 PM EST Hospital Encounter [facility] PET Scan [address] [place] [phone] Malignant pleural effusion (CMS/HCC); Primary lung adenocarcinoma, right (CMS/HCC) Discharge Disposition: Home or Self Care 08/17/2024 7:30 AM EST Anesthesia Event [facility] OR [address] [place] [phone] Antony Nicole MD 08/17/2024 7:30 AM EST - 08/17/2024 8:45 AM EST Surgery [facility] OR [address] [place] [phone] Yesenia Knight MD INSERTION CATHETER PLEURAL 08/17/2024 6:00 AM EST - 08/17/2024 9:34 AM EST Hospital Encounter [facility] OR [address] [place] [phone] Yesenia Knight MD Pleural effusion, malignant (CMS/HCC) Discharge Disposition: Home or Self Care 08/12/2024 2:30 PM EST Consult Pulmonology - [address] [phone] Yesenia Knight MD Primary adenocarcinoma of lung, unspecified laterality (CMS/HCC) (Primary Dx); Malignant pleural effusion (CMS/HCC) 08/11/2024 1:00 PM EST Office Visit [facility] Hematology Oncology [address] [place] [phone] Elder Jacobs MD Primary lung adenocarcinoma, right (CMS/HCC) (Primary Dx); Malignant pleural effusion (CMS/HCC); Hilar adenopathy; Pulmonary nodule 08/09/2024 Telephone Pulmonology - Painter [facility] [address] [place] [phone] Leigh Lorenz MA from Last 3 Months Surgical History Surgery Date Site/Laterality Comments HYSTERECTOMY EYE SURGERY glaucoma Medical History Medical History Date Comments Hypertension IBS (irritable bowel syndrome) Asthma PONV (postoperative nausea and vomiting) HL (hearing loss) Blindness cataracts Dental disease full set Diabetes mellitus (CMS/HCC) diet controlled Bleeding internal hemorrhoids Joint pain History of transfusion Social History Tobacco Use Types Packs/Day Years Used Date Smoking Tobacco: Former Cigarettes Q uit: 07/14/2004 Passive Smoke Exposure: Past Smokeless Tobacco: Never Tobacco Cessation:Counseling Given: Not Answered Alcohol Use Standard Drinks/Week Comments Not Currently [...] Orientation Straight 08/17/2024 5: 58 AM EST Obstetrics History Last Filed Vital Signs Vital Sign Reading Time Taken Comments Blood Pressure 108/64 10/08/2024 1:06 PM EST Pulse 84 10/08/2024 1:06 PM EST Temperature 36.5 ??C (97.7 ??F) 10/08/2024 1:06 PM ES T Respiratory Rate 16 09/30/2024 9:39 AM EST Oxygen Saturation 97% 10/08/2024 1:06 PM EST Inhaled Oxygen Concentration - - Weight 77 kg (169 lb 12.8 oz) 10/08/2024 1:06 PM EST Height 167.6 cm (5' 6 ) 09/30/2024 9:39 AM EST Body Mass Index 27.41 09/30/2024 9:39 AM EST Plan of Treatment Upcoming Encounters Date Type Department Care Team (Late st Contact Info) Description 10/26/2024 10:00 AM EST Office Visit [facility] Hematology Oncology [address] [place] [phone] Elder Jacobs MD [address] [place] [phone] 11/01/2024 1:00 PM EST Appointment [facility] [address] [phone] Health Maintenance Due Date Last Done Comments COVID-19 Vaccine (#1) 1945 DTaP,Tdap,and Td Vaccines (1 - Tdap) 1961 Zoster Vaccines (1 of 2) 1961 RSV Immunization Patients 60+ Years Old (1 - 1-dose 75+ series) 2017 Pneumococcal Vaccine: 50+ Years (2 of 2 - PPSV23) 07/12/2019 05/17/2019, 11/13/2018 Influenza Vaccine (#1) 2024 9, 11/12/2018, 04/24/2016, Additional history exists Cholesterol Screening (Lipid Panel) 07/14/2024 Depression Screening 07/14/2024 Medicare Annual Wellness Visit 07/14/2024 Osteoporosis Screening (Bone Density Screening) 07/14/2024 Social Influencers of Health Screening 07/14/2024 Hypertension/CHF/CAD Annual BMP Blood Test 10/06/2025 10/06/2024, 09/15/2024, 07/15/2024, Additional history exists Falls Risk Assessment 10/08/2025 10/08/2024 HIB Vaccines Aged Out No longer eligi ble based on patient's age to complete this topic HPV Vaccines Aged Out No longer eligi ble based on patient's age to complete this topic Hepatitis A Vaccines Aged Out No long er eligible based on patient's age to complete this topic Hepatitis B Vaccines Aged Out No long er eligible based on patient's age to complete this topic IPV Vaccines Aged Out No longer eligi ble based on patient's age to complete this topic MMR Vaccines Aged Out No longer eligi ble based on patient's age to complete this topic Meningococcal ACWY Vaccine Aged Out N o longer eligible based on patient's age to complete this topic Meningococcal B Vacine Aged Out No lo nger eligible based on patient's age to complete this topic RSV Immunization Patients Under 20 months Aged Out No longer eligible based on patient's age to complete this topic Varicella Vaccines Aged Out No longer eligible based on patient's age to complete this topic Procedures Procedure Name Priority Date/Time Associated Diagnosis Comments CBC WITH AUTO DIFFERENTIAL Routine 10/06/2024 10:25 AM EST Primary adenocarcinoma of right lung (CMS/HCC) THYROID STIMULATING HORMONE Routine 10/06/2024 10:25 AM EST Primary adenocarcinoma of right lung (CMS/HCC) Hypothyroidism (acquired) COMPREHENSIVE METABOLIC PANEL Routine 10/06/2024 10:25 AM EST Primary adenocarcinoma of right lung (CMS/HCC) CBC AND DIFFERENTIAL Routine 10/06/2024 10:25 AM EST Primary adenocarcinoma of right lung (CMS/HCC) CBC WITH AUTO DIFFERENTIAL Routine 09/15/2024 10:40 AM EST Pleural effusion, malignant (CMS/HCC) THYROID STIMULATING HORMONE Routine 09/15/2024 10:40 AM EST Pleural effusion, malignant (CMS/HCC) Need for prophylactic chemotherapy COMPREHENSIVE METABOLIC PANEL Routine 09/15/2024 10:40 AM EST Pleural effusion, malignant (CMS/HCC) CBC AND DIFFERENTIAL Routine 09/15/2024 10:40 AM EST Pleural effusion, malignant (CMS/HCC) PET CT SKULL TO MID THIGH INITIAL Routine 08/18/2024 1:10 PM EST Malignant pleural effusion (CMS/HCC) Primary lung adenocarcinoma, right (CMS/HCC) XR CHEST 1 VIEW STAT 08/17/2024 9:14 AM EST PATHOLOGIST REVIEW BODY FLUID STAT 08/17/2024 8:00 AM EST Pleural effusion, malignant (CMS/HCC) DIFFERENTIAL BODY FLUID STAT 08/17/2024 8:00 AM EST Pleural effusion, malignant (CMS/HCC) CELL COUNT WITH REFLEX DIFFERENTIAL, BODY FLUID STAT 08/17/2024 8:00 AM EST Pleural effusion, malignant (CMS/HCC) PROTEIN, BODY FLUID STAT 08/17/2024 8 :00 AM EST Pleural effusion, malignant (CMS/HCC) PROTEIN, BODY FLUID STAT 08/17/2024 8 :00 AM EST Pleural effusion, malignant (CMS/HCC) LACTATE DEHYDROGENASE, BODY FLUID STAT 08/17/2024 8:00 AM EST Pleural effusion, malignant (CMS/HCC) LACTATE DEHYDROGENASE, BODY FLUID STAT 08/17/2024 8:00 AM EST Pleural effusion, malignant (CMS/HCC) GLUCOSE, BODY FLUID STAT 08/17/2024 8 :00 AM EST Pleural effusion, malignant (CMS/HCC) GLUCOSE, BODY FLUID STAT 08/17/2024 8 :00 AM EST Pleural effusion, malignant (CMS/HCC) ALBUMIN, BODY FLUID STAT 08/17/2024 8 :00 AM EST Pleural effusion, malignant (CMS/HCC) ALBUMIN, BODY FLUID STAT 08/17/2024 8 :00 AM EST Pleural effusion, malignant (CMS/HCC) CULTURE BODY FLUID WITH GRAM STAIN Routine 08/17/2024 8:00 AM EST Pleural effusion, malignant (CMS/HCC) CULTURE BODY FLUID WITH GRAM STAIN Routine 08/17/2024 8:00 AM EST Pleural effusion, malignant (CMS/HCC) PATHOLOGIST REVIEW BODY FLUID STAT 08/17/2024 7:51 AM EST Pleural effusion, malignant (CMS/HCC) DIFFERENTIAL BODY FLUID STAT 08/17/2024 7:51 AM EST Pleural effusion, malignant (CMS/HCC) CELL COUNT WITH REFLEX DIFFERENTIAL, BODY FLUID STAT 08/17/2024 7:51 AM EST Pleural effusion, malignant (CMS/HCC) INSERTION CATHETER PLEURAL 08/17/2024 7:29 AM EST Pleural effusion, malignant (CMS/HCC) Case Notes right pleurx placement, need ultrasound and pleurx kit as well as sterile probe cover POCT GLUCOSE BLOOD Routine 08/17/2024 6: 54 AM EST MOLECULAR INTELLIGENCE TUMOR PROFILING Routine 08/09/2024 8:30 AM EST from Last 3 Months Results * (ABNORMAL) CBC auto differential (10/06/2024 10:25 AM EST) Only the most recent of2 resultswithin the time period is included. WBC 4.9 4.8 - 10.8 K/mcL LAB HEMETOLOGY METHOD 10/06/2024 11:35 AM [facility] RBC 3.60(L) 3.80 - 4.80 M/mcL LAB HEMETOLOGY METHOD 10/06/2024 11:35 AM [facility] Hemoglobin 12.0 11.5 - 16.0 g/dL LAB HEMETOLOGY METHOD 10/06/2024 11:35 AM [facility] Hematocrit 35.2 35.0 - 47.0 % LAB HEMETOLOGY METHOD 10/06/2024 11:35 AM [facility] MCV 98.6(H) 79.0 - 98.0 FL LAB HEMETOLOGY METHOD 10/06/2024 11:35 AM [facility] MCH 33.6(H) 27.0 - 32.0 pcg LAB HEMETOLOGY METHOD 10/06/2024 11:35 AM [facility] MCHC 34.1 32.0 - 37.0 g/dL LAB HEMETOLOGY METHOD 10/06/2024 11:35 AM [facility] RDW 13.5 11.0 - 15.0 % LAB HEMETOLOGY METHOD 10/06/2024 11:35 AM [facility] Platelets 391 130 - 400 K/mcL LAB HEMETOLOGY METHOD 10/06/2024 11:35 AM [facility] MPV 10.8 7.0 - 11.0 FL LAB HEMETOLOGY METHOD 10/06/2024 11:35 AM [facility] NRBC 0.0 <1.0 % LAB HEMETOLOGY METHOD 10/06/2024 11:35 AM [facility] NRBC Absolute 0.00 <0.10 K/mcL LAB HEMETOLOGY METHOD 10/06/2024 11:35 AM [facility] Neutrophils Relative 65.7 % LAB HEMETOLOGY METHOD 10/06/2024 11:35 AM [facility] Lymphocytes Relative 20.0 % LAB HEMETOLOGY METHOD 10/06/2024 11:35 AM [facility] Monocytes Relative 10.4 % LAB HEMETOLOGY METHOD 10/06/2024 11:35 AM [facility] Eosinophils Relative 2.9 % LAB HEMETOLOGY METHOD 10/06/2024 11:35 AM [facility] Basophils Relative 0.6 % LAB HEMETOLOGY METHOD 10/06/2024 11:35 AM [facility] Immature Granulocytes Relative 0.4 % LAB HEMETOLOGY METHOD 10/06/2024 11:35 AM [facility] Neutrophils Absolute 3.23 1.50 - 7.00 K/mcL LAB HEMETOLOGY METHOD 10/06/2024 11:35 AM [facility] Lymphocytes Absolute 0.98(L) 1.00 - 5.00 K/mcL LAB HEMETOLOGY METHOD 10/06/2024 11:35 AM EST [facility] Monocytes Absolute 0.51 0.20 - 1.00 K/[facility] LAB HEMETOLOGY METHOD 10/06/2024 11:35 AM [facility] Eosinophils Absolute 0.14 0.00 - 0.50 K/[facility] LAB HEMETOLOGY METHOD 10/06/2024 11:35 AM EST [facility] Basophils Absolute 0.03 0.00 - 0.20 K/[facility] LAB HEMETOLOGY METHOD 10/06/2024 11:35 AM EST [facility] Immature Granulocytes Absolute 0.02 0.00 - 0.03 K/[facility] LAB HEMETOLOGY METHOD 10/06/2024 11:35 AM [facility] Blood Venous blood specimen / Unknown Venipuncture / Unknown 10/06/2024 10:25 AM EST 10/06/2024 11:21 AM EST us Elder Jacobs MD LAB BLOOD ORDERABLES Final Result Performing Organization Address City/[facility]/ZIP Co de Phone Number [facility] [address] [place] [phone], * Thyroid stimulating hormone (10/06/2024 10:25 AM EST) Only the most recent of2 resultswithin the time period is included. TSH 3.75 0.40 - 4.00 mcIU/mL LAB CHEMISTRY METHOD 10/06/2024 11:47 AM EST [facility] Blood Venous blood specimen / Unknown Venipuncture / Unknown 10/06/2024 10:25 AM EST 10/06/2024 11:21 AM EST us Elder Jacobs MD LAB BLOOD ORDERABLES Final Result [facility] [address] [place] [address], [place] [phone] * (ABNORMAL) Comprehensive metabolic panel (10/06/2024 10:25 AM EST) Only the most recent of2 resultswithin the time period is included. Sodium 140 133 - 145 mmol/L LAB CHEMISTRY METHOD 10/06/2024 11:46 AM [facility] Potassium 3.4(L) 3.5 - 5.5 mmol/L LAB CHEMISTRY METHOD 10/06/2024 11:46 AM [facility] Chloride 104 96 - 110 mmol/L LAB CHEMISTRY METHOD 10/06/2024 11:46 AM [facility] CO2 32 21 - 32 mmol/L LAB CHEMISTRY METHOD 10/06/2024 11:46 AM [facility] Anion Gap 4 3 - 11 LAB CHEMISTRY METHOD 10/06/2024 11:46 AM [facility] Glucose 152(H) 70 - 100 mg/dL LAB CHEMISTRY METHOD 10/06/2024 11:46 AM [facility] BUN 18 5 - 25 mg/dL LAB CHEMISTRY METHOD 10/06/2024 11:46 AM [facility] Creatinine 0.95 0.50 - 1.10 mg/dL LAB CHEMISTRY METHOD 10/06/2024 11:46 AM [facility] eGFR 60 >=60 mL/min/1. 73m2 LAB CHEMISTRY METHOD 10/06/2024 11:46 AM [facility] Comment:Calculation based on the??Chronic Kidney Disease Epidemiology Collaboration (CKD-EPI) equation refit??without adjustment for race. BUN/Creatinine Ratio 18.9 LAB CHEMISTRY METHOD 10/06/2024 11:46 AM [facility] Calcium 9.4 8.5 - 10.5 mg/dL LAB CHEMISTRY METHOD 10/06/2024 11:46 AM [facility] AST (SGOT) 31 10 - 42 unit/L LAB CHEMISTRY METHOD 10/06/2024 11:46 AM [facility] ALT (SGPT) 39 10 - 60 unit/L LAB CHEMISTRY METHOD 10/06/2024 11:46 AM [facility] Alkaline Phosphatase 73 42 - 121 unit/L LAB CHEMISTRY METHOD 10/06/2024 11:46 AM [facility] Total Protein 6.1 6.0 - 8.0 g/dL LAB CHEMISTRY METHOD 10/06/2024 11:46 AM [facility] Albumin 2.8(L) 3.2 - 5.0 g/dL LAB CHEMISTRY METHOD 10/06/2024 11:46 AM [facility] Total Bilirubin 0.4 0.0 - 1.4 mg/dL LAB CHEMISTRY METHOD 10/06/2024 11:46 AM [facility] Blood Venous blood specimen / Unknown Venipuncture / Unknown 10/06/2024 10:25 AM EST 10/06/2024 11:21 AM EST us Elder Jacobs MD LAB BLOOD ORDERABLES Final Result [facility] [address] [place] [address], * PET CT Skull to Mid Thigh Initial (08/18/2024 1:10 PM EST) Anatomical Region Laterality Modality Body Radiographic Maliha ging 08/18/2024 3:17 PM EST Impressions 08/18/2024 3:38 PM EST Index lesion right lower lobe parahilar region metabolically active. There is metastatic right hilar, subcarinal and pretracheal metastatic lymph nodes metabolically active. No distant peristasis in the neck or the abdomen. There are small nodules along the right inferior major fissure in the anterior chest likely metastatic pleural disease which is resulting in mild to moderate pleural effusion. The pleural effusion itself is not metabolically active There is a solitary metabolic active nodule in the mid transverse colon likely a primary lesion. Recommend endoscopy. -------- FINAL REPORT -------- Dictated By: Jimy Jarvis Dictated Date: 08/18/2024 15:17 ET Assigned Physician: Jimy Jarvsi Reviewed and Electronically Signed By: Jimy Jarvis Signed Date: 08/18/2024 15:38 ET Workstation ID: [id number] Transcribed By: Self Edit Transcribed Date: 08/18/2024 15:17 ET Narrative 08/18/2024 3:38 PM EST EXAMINATION: PET/CT skull to mid thigh. CLINICAL INDICATION: Malignant pleural effusion. COMPARISON: Chest x-ray 08/17/[address] chest 07/14/2024. TECHNIQUE: Following intravenous administration of 13.3 mCi of F-18 FDG in left antecubital vein, whole-body emission scan was obtained from skull base to mid thigh following 54 minutes postinjection. 5 mm thin axial nondiagnostic CT transmission scan was obtained without oral or IV contrast for attenuation correction and correlative imaging. 3-D reformats and color fusion was performed on a separate workstation and available for images and interpretation. Baseline glucose measures 1 49 mg/DL. DLP 738 mGy/cm. FINDINGS: Skull base and neck: There is no abnormal metabolic activity seen in the skull base or the neck. Nonspecific mild metabolic activity seen in bilateral palatine tonsils. On CT visualized intracranial brain parenchyma is unremarkable. Bilateral paranasal sinuses and mastoid air cells are well-aerated. Bilateral optic globes and the orbits are unremarkable. Bilateral parotid and submandibular glands are symmetric and normal. There is widely patent. No abnormal neck mass or lymphadenopathy seen. Bilateral thyroid lobes are symmetric and normal. CHEST: There are FDG avid pretracheal right hilar and subcarinal lymph nodes with Max SUV 5.72, 6.26 and subcarinal 6.626 respectively. There is metabolically avid mass in the right lower lobe in the perihilar region with an SUV of 9.19. On CT the mass measures 4.1 x 3.2 cm. Mild FDG avid 2 lesions seen along the right anterior major fissure on axial CT 86/4. Max SUV measures 3.98 and is suspicious for pleural disease. Not metabolically active. There are small subcarinal right hilar and pretracheal lymph nodes. The largest pretracheal lymph nodes measures 1.2 cm, hilar lymph node is 1.8 cm and subcarinal lymph node is 1.8 cm. Abdomen and pelvis: No abnormal FDG active lesion seen in the solid organs, retroperitoneum, adrenal glands or the pelvis. There is significant active nodule in the transverse colon with an SUV of 16.57 corresponding to a 1.9 x 1.[address] image 133/4 suspicious for primary colonic lesion. On CT noted are lymph nodes, solid mass seen. No radiopaque gallstones or radiopaque calculi. There is 4.8 cm simple cyst upper pole left kidney. Osseous structures: No abnormal metabolic activity seen. Procedure Note Jimy Jarvis MD - 08/18/2024 EXAMINATION: PET/CT skull to mid thigh. CLINICAL INDICATION: Malignant pleural effusion. COMPARISON: Chest x-ray 08/17/[address] chest 07/14/2024. TECHNIQUE: Following intravenous administration of 13.3 mCi of F-18 FDG inleft antecubital vein, whole-body emission scan was obtained from skullbase to mid thigh following 54 minutes postinjection. [address] transmission scan was obtained without oral or IVcontrast for attenuation correction and correlative imaging. 3-D reformatsand color fusion was performed on a separate workstation and available forimages and interpretation. Baseline glucose measures 1 49 mg/DL. DLP 738mGy/cm. FINDINGS: Skull base and neck: There is no abnormal metabolic activity seen in theskull base or the neck. Nonspecific mild metabolic activity seen inbilateral palatine tonsils. On CT visualized intracranial brain parenchymais unremarkable. Bilateral paranasal sinuses and mastoid air cells arewell-aerated. Bilateral optic globes and the orbits are unremarkable.Bilateral parotid and submandibular glands are symmetric and normal. Thereis widely patent. No abnormal neck mass or lymphadenopathy seen. Bilateralthyroid lobes are symmetric and normal. CHEST: There are FDG avid pretracheal right hilar and subcarinal lymphnodes with Max SUV 5.72, 6.26 and subcarinal 6.626 respectively. There ismetabolically avid mass in the right lower lobe in the perihilar regionwith an SUV of 9.19. On CT the mass measures 4.1 x 3.2 cm. Mild FDG avid 2lesions seen along the right anterior major fissure on axial CT 86/4. MaxSUV measures 3.98 and is suspicious for pleural disease. Not metabolicallyactive. There are small subcarinal right hilar and pretracheal lymphnodes. The largest pretracheal lymph nodes measures 1.2 cm, hilar lymphnode is 1.8 cm and subcarinal lymph node is 1.8 cm. Abdomen and pelvis: No abnormal FDG active lesion seen in the solidorgans, retroperitoneum, adrenal glands or the pelvis. There issignificant active nodule in the transverse colon with an SUV of 16.57corresponding to a 1.9 x 1.[address] image 133/4 suspicious forprimary colonic lesion. On CT noted are lymph nodes, solid mass seen. Noradiopaque gallstones or radiopaque calculi. There is 4.8 cm simple cystupper pole left kidney. Osseous structures: No abnormal metabolic activity seen. IMPRESSION: Index lesion right lower lobe parahilar region metabolically active. Thereis metastatic right hilar, subcarinal and pretracheal metastatic lymphnodes metabolically active. No distant peristasis in the neck or theabdomen. There are small nodules along the right inferior major fissure in theanterior chest likely metastatic pleural disease which is resulting inmild to moderate pleural effusion. The pleural effusion itself is notmetabolically active There is a solitary metabolic active nodule in the mid transverse colonlikely a primary lesion. Recommend endoscopy. -------- FINAL REPORT -------- Dictated By: Jimy Jarvis Dictated Date: 08/18/2024 15:17 ET Assigned Physician: Jimy Jarvis Reviewed and Electronically Signed By: Jimy Jarvis Signed Date: 08/18/2024 15:38 ET Workstation ID: [id number] Transcribed By: Self Edit Transcribed Date: 08/18/2024 15:17 ET us Elder Jacobs MD [facility] NM PROCEDURES Final Res ult * XR Chest 1 View (08/17/2024 9:14 AM EST) Anatomical Region Laterality Modality Body Radiographic Maliha ging 08/17/2024 9:35 AM EST Impressions 08/17/2024 9:39 AM EST A Pleurx catheter has been placed since the prior chest radiograph performed 07/14/2024, with the tip at the medial aspect of the right lung base. There is a small to moderate-sized right pleural effusion with underlying atelectasis and/or infiltrate, significantly improved since the prior study. The left lung remains clear. There is no pneumothorax. Code 50602 -------- FINAL REPORT -------- Dictated By: Ron Craven Dictated Date: 08/17/2024 09:35 ET Assigned Physician: Ron Craven Reviewed and Electronically Signed By: Ron Craven Signed Date: 08/17/2024 09:39 ET Workstation ID: [id number] Transcribed By: Self Edit Transcribed Date: 08/17/2024 09:35 ET Narrative 08/17/2024 9:39 AM EST HISTORY: The patient is an 84-year-old female for follow-up of a right pleural effusion. Information provided with prior studies indicates the patient underwent ultrasound-guided right thoracentesis on 07/15/2024 with drainage of 1000 cc of fluid. FINDINGS: Sitting AP portable radiograph of the chest obtained in the postanesthesia care unit is obtained. A Pleurx catheter has been placed since the prior study performed 07/14/2024, with the tip at the medial aspect of the right lung base. There is mild osteoarthritis of the shoulders bilaterally. There are degenerative changes of the thoracic spine. The cardiac silhouette is again seen to be enlarged. The aortic knob is calcified. There is a small to moderate right pleural effusion with underlying atelectasis and/or infiltrate, significantly decreased in size since the prior study. The left lung is clear. There is no pneumothorax. Procedure Note Ron Craven MD - 08/17/2024 HISTORY: The patient is an 84-year-old female for follow-up of a rightpleural effusion. Information provided with prior studies indicates thepatient underwent ultrasound-guided right thoracentesis on 07/15/2024 withdrainage of 1000 cc of fluid. FINDINGS: Sitting AP portable radiograph of the chest obtained in thepostanesthesia care unit is obtained. A Pleurx catheter has been placedsince the prior study performed 07/14/2024, with the tip at the medialaspect of the right lung base. 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 There are degenerative changes of the thoracicspine. The cardiac silhouette is again seen to be enlarged. The aorticknob is calcified. There is a small to moderate right pleural effusionwith underlying atelectasis and/or infiltrate, significantly decreased insize since the prior study. The left lung is clear. There is nopneumothorax. IMPRESSION: A Pleurx catheter has been placed since the prior chest radiographperformed 07/14/2024, with the tip at the medial aspect of the right lungbase. There is a small to moderate-sized right pleural effusion withunderlying atelectasis and/or infiltrate, significantly improved since theprior study. The left lung remains clear. There is no pneumothorax. Code 23746 -------- FINAL REPORT -------- Dictated By: Ron Craven Dictated Date: 08/17/2024 09:35 ET Assigned Physician: Ron Craven Reviewed and Electronically Signed By: Ron Craven Signed Date: 08/17/2024 09:39 ET Workstation ID: [id number] Transcribed By: Self Edit Transcribed Date: 08/17/2024 09:35 ET us Yesenia Knight MD IMG XR PROCEDURES Final Re sult * Cell count with reflex differential, body fluid (08/17/2024 8:00 AM EST) Only the most recent of2 resultswithin the time period is included. Body Fluid Total Nucleated Cells 990 /mm3 LAB HEMETOLOGY METHOD 08/17/2024 11:45 AM EST [facility] Body Fluid RBC 3,000 /mm3 LAB HEMETOLOGY METHOD 08/17/2024 11:45 AM EST [facility] Body Fluid Color Yellow 08/17/2024 11:45 AM EST [facility] Body Fluid Clarity Hazy 08/17/2024 11:45 AM EST [facility] Body Fluid Source Pleural 08/17/2024 11:45 AM EST [facility] Pleural Fluid Structure of right pleural cavity / Unknown 08/17/2024 8:00 AM EST 08/17/2024 9:29 AM EST Narrative [facility] - 08/17/2024 11:45 AM EST No reference ranges have been established for body fluids. Clinical correlation recommended. Yesenia Knight MD LAB BODY FLUIDS AND STOOLS ORDERABLES Final Result Performing Organization Address City/[facility]/ZIP Co de Phone Number [facility] [address] [place] [address], [place] [phone] * Culture body fluid with gram stain (08/17/2024 8:00 AM EST) Only the most recent of2 resultswithin the time period is included. Fluid Culture No growth at 3 days LAB MICROBIOLOGY METHOD 08/20/2024 8:33 AM EST [facility] Gram Stain Result Few Polymorphonuclear leukocytes 08/20/2024 8:33 AM EST [facility] Gram Stain Result No Epithelial cells 08/20/2024 8:33 AM EST [facility] Gram Stain Result No organisms seen 08/20/2024 8:33 AM EST [facility] Pleural Fluid Structure of right pleural cavity / Unknown 08/17/2024 8:00 AM EST 08/17/2024 9:28 AM EST Yesenia Knight MD LAB MICROBIOLOGY - GENERAL ORDERABLES Final Result Performing Organization Address City/[facility]/ZIP Co de Phone Number [facility] [address] [place] [address], [place] [phone] * Differential body fluid (08/17/2024 8:00 AM EST) Only the most recent of2 resultswithin the time period is included. Fluid Neutrophils % 4 % 08/17/2024 11:45 AM EST [facility] Fluid Lymphocytes % 89 % 08/17/2024 11:45 AM EST [facility] Fluid Monocytes/Macrop hages 7 % 08/17/2024 11:45 AM EST [facility] Fluid Eosinophils % 0 % 08/17/2024 11:45 AM EST [facility] Fluid Basophils % 0 % 08/17/2024 11:45 AM EST [facility] Fluid Other Cells % 0 % 08/17/2024 11:45 AM EST [facility] Pleural Fluid Structure of right pleural cavity / Unknown 08/17/2024 8:00 AM EST 08/17/2024 9:29 AM EST Narrative [facility] - 08/17/2024 11:45 AM EST No reference ranges have been established for body fluids. Clinical correlation recommended. Yesenia Knight MD LAB BODY FLUIDS AND STOOLS ORDERABLES Final Result [facility] [address] [place] [address], [place] [phone] * Pathology review, body fluid (08/17/2024 8:00 AM EST) Only the most recent of2 resultswithin the time period is included. Pathologist review Body Fluid Pleural fluid, right: Malignant cells are present. ??(See also prior cytology report of pleural fluid, [id number].) Electronical ly signed by Antony Shah MD on 08/17/24 at 3:03 PM EST 08/17/2024 3:04 PM EST [facility] Pleural Fluid Structure of right pleural cavity / Unknown 08/17/2024 8:00 AM EST 08/17/2024 9:29 AM EST Yesenia Knight MD LAB BODY FLUIDS AND STOOLS ORDERABLES Final Result Performing Organization Address [facility] Co de Phone Number [facility] [address] [place] [address], [place] [phone] * Protein, body fluid (08/17/2024 8:00 AM EST) Only the most recent of2 resultswithin the time period is included. Protein, Fluid 5.1 See Comment g/dL LAB CHEMISTRY METHOD 08/17/2024 10:49 AM EST [facility] Pleural Fluid Structure of right pleural cavity / Unknown 08/17/2024 8:00 AM EST 08/17/2024 9:28 AM EST [facility] - 08/17/2024 10:49 AM EST No reference ranges have been established for body fluids. Clinical correlation recommended. Yesenia Knight MD LAB BODY FLUIDS AND STOOLS ORDERABLES Final Result Performing Organization Address [facility] de Phone Number [facility] [address] [place] [address], [place] [phone] * Lactate dehydrogenase, body fluid (08/17/2024 8:00 AM EST) Only the most recent of2 resultswithin the time period is included. LD, Fluid 589 See Comment unit/L LAB CHEMISTRY METHOD 08/17/2024 10:49 AM EST [facility] Pleural Fluid Structure of right pleural cavity / Unknown 08/17/2024 8:00 AM EST 08/17/2024 9:28 AM EST [facility] - 08/17/2024 10:49 AM EST No reference ranges have been established for body fluids. Clinical correlation recommended. Yesenia Knight MD LAB BODY FLUIDS AND STOOLS ORDERABLES Final Result Performing Organization Address City/[facility]/ZIP Co de Phone Number [facility] [address] [place] [address], [place] [phone] * Glucose, body fluid (08/17/2024 8:00 AM EST) Only the most recent of2 resultswithin the time period is included. Glucose, Fluid 122 See Comment mg/dL LAB CHEMISTRY METHOD 08/17/2024 10:49 AM EST [facility] Pleural Fluid Structure of right pleural cavity / Unknown 08/17/2024 8:00 AM EST 08/17/2024 9:28 AM EST [facility] - 08/17/2024 10:49 AM EST No reference ranges have been established for body fluids. Clinical correlation recommended. us Yesenia Knight MD LAB BODY FLUIDS AND STOOLS ORDERABLES Final Result Performing Organization Address [facility] Phone Number [facility] [address] [place] [address], [place] [phone] * Albumin, body fluid (08/17/2024 8:00 AM EST) Only the most recent of2 resultswithin the time period is included. Albumin, Fluid 3.0 See Comment g/dL LAB CHEMISTRY METHOD 08/17/2024 10:49 AM EST [facility] Pleural Fluid Structure of right pleural cavity / Unknown 08/17/2024 8:00 AM EST 08/17/2024 9:28 AM EST [facility] - 08/17/2024 10:49 AM EST No reference ranges have been established for body fluids. Clinical correlation recommended. us Yesenia Knight MD LAB BODY FLUIDS AND STOOLS ORDERABLES Final Result Performing Organization Address [facility]/ZIP Co de Phone Number [facility] [address] [place] [address], [place] [phone] * (ABNORMAL) POCT Glucose, blood (08/17/2024 6:54 AM EST) Glucose POCT 160(H) 70 - 100 mg/dL 08/17/2024 6:55 AM EST [facility] Blood Capillary blood specimen / Unknown 08/17/2024 6:54 AM EST 08/17/2024 6:57 AM EST Yesenia Knight MD LAB POINT OF CARE TEST DOCKED DEVICE UNSOLICITED RESULTS Final Result [facility] [address] [place] [address], * Molecular intelligence tumor profiling (08/09/2024 8:30 AM EST) Tissue Elder Jacobs MD LAB MOLECULAR DIAGNOSTICS O RDERABLES Final Result from Last 3 Months Insurance MEDICARE [facility] Advance Directives * Full Code - Default (Latest Code Status on File) Date Activated Date Inactivated Comments 08/17/2024 7:10 AM 08/17/2024 11:39 AM This is o rder is used when code status has not been discussed with the patient, or code status is otherwise unknown/unconfirmed To update the patient's code status, place a code status order. Do not modify or discontinue any currently active code status orders. * Full Code - Confirmed Date Activated Date Inactivated Comments 07/15/2024 2:08 AM 07/15/2024 8:02 PM This code status was ascertained in the following way: Code status discussion: discussion with patient To update the patient's code status, place a code status order. Do not modify or discontinue any currently active code status orders. * Full Code - Confirmed Date Activated Date Inactivated Comments 07/15/2024 1:52 AM 07/15/2024 2:08 AM This code status was ascertained in the following way: Code status discussion: discussion with patient To update the patient's code status, place a code status order. Do not modify or discontinue any currently active code status orders. * Full Code - Default Date Activated Date Inactivated Comments 07/14/2024 11:56 PM 07/15/2024 1:52 AM This is o rder is used when code status has not been discussed with the patient, or code status is otherwise unknown/unconfirmed To update the patient's code status, place a code status order. Do not modify or discontinue any currently active code status orders. Care Teams Talent Agent Relationship Specialty Start Date End Date Pascale Johnson MD [address] [place] [address] PCP - General Internal Medicine 07/14/24
--- OUTSIDE RECORDS SUMMARY | 2024-10-25 14:13 | XMS_ITS | Encounter Summary ---
Author Organization [facility] Address [address] [place] [address] Care Team Providers Care Seat Covers Trimmer Name Role Phone Pascale Johnson MD Primary Care Provider Reason for Visit * Episode Based Medications (Routine) - Authorized Specialty Diagnoses / Procedures Referred By Contac t Referred To Contact Diagnoses Primary adenocarcinoma of right lung (CMS/HCC) Pleural effusion, malignant (CMS/HCC) Hypothyroidism (acquired) Elder Jacobs MD [address] [place] [phone] Phone: tel: fax: [facility] [address] [place] [phone] Phone: tel: fax: Referral ID Status Reason Start Date Expiration Date V isits Requested Visits Authorized [id number] Authorized 09/16/2024 09/16/2025 1 35 Encounter Details Date Type Department Care Team (Latest Contact Info) Description 10/08/2024 12:54 PM EST - 10/08/2024 11:59 PM EST Hospital Encounter [facility] [address] [place] [phone] Elder Jacobs MD [address] [place] [address] Primary adenocarcinoma of right lung (CMS/HCC) (Primary Dx); Pleural effusion, malignant (CMS/HCC); Hypothyroidism (acquired) Discharge Disposition: Home or Self Care Social History Tobacco Use Types Packs/Day Years [...] 10/08/2024 1:06 PM ES T Respiratory Rate - - Oxygen Saturation 97% 10/08/2024 1:06 PM EST Inhaled Oxygen Concentration - - Weight 77 kg (169 lb 12.8 oz) 10/08/2024 1:06 PM EST Height - - Body Mass Index 27.41 09/30/2024 9:39 AM EST documented in this encounter Medications at Time of Discharge albuterol HFA (PROAIR HFA ; PROVENTIL HFA ; VENTOLIN HFA) 90 mcg/actuation inhaler Inhale 1 puff by mouth every 6 (six) hours if needed. 06/01/2024 atenoloL (TENORMIN) 50 mg tablet Take 1 tablet (50 mg total) by mouth 1 (one) time each day. 05/12/2024 dexAMETHasone (DECADRON) 4 mg tablet Take 1 tablet (4 mg total) by mouth 1 (one) time each day. Take 1 tablet by mouth with breakfast and morning on day before chemotherapy and the day after chemotherapy 6 each 2 09/10/2024 5 folic acid (FOLVITE) 1 mg tablet Take 1 tablet (1 mg total) by mouth 1 (one) time each day. 30 each 5 08/11/2024 5 losartan-hydroCH LOROthiazide (HYZAAR) 50-12.5 mg per tablet Take 1 tablet by mouth 1 (one) time each day. 05/12/2024 ondansetron (ZOFRAN) 8 mg tabletIndication s:Malignant pleural effusion (CMS/HCC),Primar y lung adenocarcinoma, right (CMS/HCC) Take 1 tablet (8 mg total) by mouth every 8 (eight) hours if needed for nausea or vomiting. 30 tablet 2 09/10/2024 Trelegy Ellipta 100-62.5-25 mcg inhaler 09/15/2024 documented as of this encounter Discharge Disposition Disposition Code Departure Means Destination Home or Self Care documented in this encounter Progress Notes * Margarette Priest RN - 10/08/2024 1:00 PM EST Arrived amb with daughter for C2 of treatment. Tolerated first cycle with a rash on back and chest after treatment. The rash went away (used some nystatin powder and that helped. She uses this on rash under her breasts). Discussed that the rash is a side effect from treatment, she can use OTC hydrocortisone cream if its itchy or bothers her, tells me it did not bother her at all. Knows she call call in if the rash comes back and it is bothering her and OTC hydrocortisone does not help. Still getting pleurex drained 3 times/week, daughter has been doing it on the weekend, breathing is at baseline with RASHEED and cough from post nasal drip. IBS is bothering her today, denies diarrhea, tells me it is constipation then turns into diarrhea, she went this morning and it was both loose and hard. This has been ongoing for years. Labs from 10/06/24 reviewed, OK for treatment, K 3.4, no new orders, discussed increasing foods high in potassium, she is having orange juice while here. PIV placed and premeds administered. 1455 Infusions complete, pt is feeling well. Daughter had requested getting Ensure through insurance. Reached out to Diane Hughes, pt can get Ensure through patient service fund. Samples provided along with recipe book and and Diane's contact info once pt knows her preferences. Reminders for next appts provided as well (next appt scheduled for Fri per pt request.) Left amb with daughter, stable at D/C. documented in this encounter Plan of Treatment Upcoming Encounters Date Type Department Care Team (Late st Contact Info) Description 10/26/2024 10:00 AM EST Office Visit [facility] Hematology Oncology [address] [place] [phone] Elder Jacobs MD [address] [place] [phone] 11/01/2024 1:00 PM EST Appointment [facility] [address] [phone] documented as of this encounter Visit Diagnoses Diagnosis Primary adenocarcinoma of right lung (CMS/HCC)- Primary Pleural effusion, malignant (CMS/HCC) Malignant pleural effusion Hypothyroidism (acquired) Unspecified hypothyroidism documented in this encounter Administered Medications Inactive Administered Medications - up to 3 most recent administrations Medication Order MAR Action Action Date Dose Rate Site dexAMETHasone (DECADRON) injection 8 mg 8 mg, intravenous, Once, On Fri10/08/24 at 1330, For 1 doseIndications:Primary adenocarcinoma of right lung (CMS/HCC),Pleural effusion, malignant (CMS/HCC),Hypothyroidism (acquired) Given 10/08/2024 1:36 PM EST 8 mg palonosetron (ALOXI) injection 250 mcg 250 mcg, intravenous, Once, On Fri10/08/24 at 1330, For 1 doseIndications:Primary adenocarcinoma of right lung (CMS/HCC),Pleural effusion, malignant (CMS/HCC),Hypothyroidism (acquired) Given 10/08/2024 1:33 PM EST 250 mcg pembrolizumab (KEYTRUDA) 200 mg in sodium chloride 108 mL chemo IVPB 200 mg, intravenous, at 216 mL/hr, Administer over 30 Minutes, Once, On Fri10/08/24 at 1345, For 1 dose, Administer with a low protein binding 0.2-5 micron in-line filter.Indications:Primary adenocarcinoma of right lung (CMS/HCC),Pleural effusion, malignant (CMS/HCC),Hypothyroidism (acquired) New Bag 10/08/2024 2:03 PM EST 200 mg 216 mL/hr PEMEtrexed disodium (ALIMTA) 875 mg in sodium chloride 0.9 % 100 mL chemo IVPB 875 mg (rounded from 870 mg = 500 mg/m2 ? 1.74 m2 Treatment plan adjusted BSA), intravenous, at 600 mL/hr, Administer over 10 Minutes, Once, On Fri10/08/24 at 1400, For 1 dose, HAZARDOUS Drug Precautions - High Risk (Category C/NIOSH Group 1) Antineoplastic: - Double pair of ASTM standard D6978 certified chemotherapy gloves - Chemotherapy gown - Closed-System Transfer Device (CSTD) recommended - Eye protection (goggles or face shield) required only with a potential for facial contact (i.e. concern for spitting or vomiting of the dose during or after administration)Indications:Iveth abel adenocarcinoma of right lung (CMS/HCC),Pleural effusion, malignant (CMS/HCC),Hypothyroidism (acquired) New Bag 10/08/2024 2:42 PM EST 875 mg 600 mL/hr documented in this encounter Orders Medications Ordered That Selvin ht Not Have Been Administered Count Last Ordered Date First Ordered Date sodium chloride 0.9 % infusion 1 10/08/2024 documented in this encounter Care Teams Seat Covers Trimmer Relationship Specialty Start Date End Date Pascale Johnson MD [address] [place] [phone] PCP - General Internal Medicine 07/14/24 documented as of this encounter
--- OUTSIDE RECORDS SUMMARY | 2024-10-25 14:13 | XMS_ITS | Encounter Summary ---
Author Organization [facility] Address [address] [place] [address] Care Team Providers Care Unemployment Claims Adjudicator Name Role Phone Pascale Johnson MD Primary Care Provider [phone] Reason for Visit * Reason Comments Follow-up Encounter Details Date Type Department Care Team (Latest Contact Info) Description 10/06/2024 9:45 AM EST Office Visit [facility] Hematology Oncology [address] [place] [address] Elder Jacobs MD [address] [place] [address] Primary adenocarcinoma of right lung (CMS/HCC) (Primary Dx); Hypothyroidism (acquired) Social History Tobacco Use Types Packs/Day Years [...] Sign Reading Time Taken Comments Blood Pressure 135/55 10/06/2024 9:54 AM EST Pulse 62 10/06/2024 9:54 AM EST Temperature 36.3 ??C (97.4 ??F) 10/06/2024 9:54 AM ES T Respiratory Rate - - Oxygen Saturation 96% 10/06/2024 9:54 AM EST Inhaled Oxygen Concentration - - Weight 75.3 kg (166 lb) 10/06/2024 9:54 AM EST Height - - Body Mass Index 26.79 09/30/2024 9:39 AM EST documented in this encounter Progress Notes * Elder Jacobs MD - 10/06/2024 9:45 AM EST Diagnosis/treatment: 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 She started Keytruda/Alimta on 09/17/2024. Interval history: The patient is an 84-year-old formerly smoking female who developed gradually worsening dyspnea on exertion followed by dyspnea at rest in late 06/2024. She completed a course of empiric antibiotics with azithromycin and amoxicillin without benefit. She presented to the [facility] ER with dyspnea on 07/14/2024. 8 chest x-ray on 07/14/2024 showed a large right pleural effusion with extensive underlyingcompressive atelectasis. A chest CTA on 07/14/2024 showed a large right pleural effusion. There wasright hilar lymphadenopathy measuring up to 1.3 cm. A 0.9 cm left upper lobe groundglass opacity was seen. She underwent a right thoracentesis on 07/15/2024 and 1000 mL were drained and the cytology showed metastatic adenocarcinoma, consistent with a pulmonary primary, [id number]-7-klzateur positive, PA00-odxwolvv, S1-39-yryoxtuw, calretinin-negative, AEE-6-vxrwdydi, k26-ewpxbjog, FCKU-3-ojydxujh. The Caris assay showed a PD-L1 TPS 15. A KRAS G12C mutation was detected. EGFR, BRAF, ALK, ROS-1, MET, RET alterations were not detected. She reported lessened dyspnea on exertion following the thoracentesis. She underwent a right Pleurx catheter placement on 08/17/2024. The patient reports that the visiting nurse drains the Pleurx 300 mL, 3 times weekly. A PET/CT on 08/18/2024 showed uptake in a 4.1 x 3.2 cm right lower lobe perihilar mass with SUV 9.2. There was uptake in 2 pleural-based lesions along the right anterior major fissure with SUV up to 4.0. There was uptake in pretracheal lymphadenopathy with SUV 5.7, subcarinal lymphadenopathy with SUV 6.6, and right hilar lymphadenopathy with SUV 6.3. There was uptake in a 1.9 cm nodule in the transverse colon with SUV 16.6. She is tolerating Keytruda/Alimta reasonably well. She developed a rash on her back, inframammary folds, and groin x 1 week, which resolved with a antifungal powder. The patient reports stable right Pleurx drainage, 3 times weekly. She reports a cough. She reports mild dyspnea on exertion. She denies hemoptysis. She reports mild anorexia. She reports a 15 pound weight loss over 2 months prior to presentation. She lost weight from 171 pounds on 08/13/2024 down to 165 pounds on 09/08/2024. Her weight was stable over the last interval. She denies headaches or visual changes. She denies nausea or abdominal pain. She denies unusual bone pain. Past medical history: Hypertension, asthma, IBS. Current medications: Albuterol inhaler, atenolol, losartan. Allergies: Sulfa, codeine. Family history: Her father was diagnosed with a tongue cancer in his 70s and survived that diagnosis. Her mother had no history of cancer. She has no siblings. Her 3 daughters have no history of cancer. 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 She has 3 daughters and 2 grandchildren. She started smoking at age 17 smoked up to 2 packs a day and quit in early 50s. She drinks alcoholsocially. Review of systems: The remainder of a 10 point review of systems was unremarkable. Physical examination: HEENT: Sclerae anicteric, normal oropharyngeal membrane. Neck: No lymphadenopathy. Lungs: Clear to auscultation. Heart: No murmurs. Abdomen: Soft, nontender, no organomegaly or masses. Extremities: No edema. Skin: No rash. Neurologic: Normal gait. Assessment/plan: The patient is an 84-year-old formerly smoking female who presented in 07/2024 with a metastatic lung adenocarcinoma with a malignant right pleural effusion, PD-L1 TPS 15, KRAS [id number]. A right-sided Pleurx catheter was placed. The catheter drains 300 mL, 3 times weekly. Due to her advanced age, she is not a good candidate for cisplatin-based doublet therapy. I recommended systemic therapy with Keytruda/Alimta, which would be well-tolerated. I discussed the potentialadverse effects of Alimta, including fatigue, mouth sores, nausea, diarrhea, rash, cytopenias, and infection. I discussed the potential adverse effects of Keytruda, including fatigue, nausea, diarrhea, rash, pruritus, arthralgias, and autoimmune events, including hypothyroidism, adrenal insufficiency, diabetes, pneumonitis, hepatitis, and colitis. She is tolerating Keytruda/Alimta reasonably well. She developed a rash on her back, inframammary folds, and groin x 1 week, which resolved with a antifungal powder. The patient reports stable right Pleurx drainage, 3 times weekly. We would consider sotorasib in the second line of systemic therapy. Visit summary: The patient is an 84-year-old female presented 07/2020 for the metastatic lung adenocarcinoma with a malignant right pleural effusion. She is tolerating Keytruda/Alimta reasonably well. She developeda rash x 1 week, which resolved on antifungal powder. We will monitor drainage from the right pleural effusion for response. Will also monitor PET/CTs or CTs. We could consider sotorasib in the second line of systemic therapy. This encounter is of high risk. The patient has a metastatic lung cancer, which is life-threateningcondition. She remains on Keytruda/Alimta, which carries a risk of significant morbidity and mortality. documented in this encounter Plan of Treatment Upcoming Encounters Date Type Department Care Team (Late st Contact Info) Description 10/26/2024 10:00 AM EST Office Visit [facility] Hematology Oncology [address] [place] [phone] Elder Jacobs MD [address] [place] [phone] 11/01/2024 1:00 PM EST Appointment [facility] Infusion [facility] [address] [place] [phone] Scheduled Orders Name Type Priority Associated Diagnoses Orde r Schedule CBC and differential Lab Routine Primary adenocarcinoma of right lung (CMS/HCC) Every 3 weeks for 17 Occurrences starting 10/06/2024 until 10/06/2025, 1 completed Comprehensive metabolic panel Lab Routine Primary adenocarcinoma of right lung (CMS/HCC) Every 3 weeks for 17 Occurrences starting 10/06/2024 until 10/06/2025, 1 completed Thyroid stimulating hormone Lab Routine Primary adenocarcinoma of right lung (CMS/HCC) Hypothyroidism (acquired) Every 3 weeks for 17 Occurrences starting 10/06/2024 until 10/06/2025, 1 completed documented as of this encounter Results * Thyroid stimulating hormone (10/06/2024 10:25 AM EST) [facility] TSH 3.75 0.40 - 4.00 mcIU/mL LAB CHEMISTRY METHOD 10/06/2024 11:47 AM EST [facility] Blood Venous blood specimen / Unknown Venipuncture / Unknown 10/06/2024 10:25 AM EST 10/06/2024 11:21 AM EST Elder Jacobs MD LAB BLOOD ORDERABLES Final Result [facility] [address] [place] [address], * (ABNORMAL) Comprehensive metabolic panel (10/06/2024 10:25 AM EST) [facility] Sodium 140 133 - 145 mmol/L LAB CHEMISTRY METHOD 10/06/2024 11:46 AM EST [facility] Potassium 3.4(L) 3.5 - 5.5 mmol/L LAB CHEMISTRY METHOD 10/06/2024 11:46 AM EST [facility] Chloride 104 96 - 110 mmol/L LAB CHEMISTRY METHOD 10/06/2024 11:46 AM EST [facility] CO2 32 21 - 32 mmol/L LAB CHEMISTRY METHOD 10/06/2024 11:46 AM EST [facility] Anion Gap 4 3 - 11 LAB CHEMISTRY METHOD 10/06/2024 11:46 AM [facility] Glucose 152(H) 70 - 100 mg/dL LAB CHEMISTRY METHOD 10/06/2024 11:46 AM [facility] BUN 18 5 - 25 mg/dL LAB CHEMISTRY METHOD 10/06/2024 11:46 AM [facility] Creatinine 0.95 0.50 - 1.10 mg/dL LAB CHEMISTRY METHOD 10/06/2024 11:46 AM [facility] eGFR 60 >=60 mL/min/1. 73m2 LAB CHEMISTRY METHOD 10/06/2024 11:46 AM [facility] Comment:Calculation based on the??Chronic Kidney Disease Epidemiology Collaboration (CKD-EPI) equation refit??without adjustment for race. BUN/Creatinine Ratio 18.9 LAB CHEMISTRY METHOD 10/06/2024 11:46 AM [facility] Calcium 9.4 8.5 - 10.5 mg/dL LAB CHEMISTRY METHOD 10/06/2024 11:46 AM [facility] AST (SGOT) 31 10 - 42 unit/L LAB CHEMISTRY METHOD 10/06/2024 11:46 AM [facility] ALT (SGPT) 39 10 - 60 unit/L LAB CHEMISTRY METHOD 10/06/2024 11:46 AM [facility] Alkaline Phosphatase 73 42 - 121 unit/L LAB CHEMISTRY METHOD 10/06/2024 11:46 AM [facility] Total Protein 6.1 6.0 - 8.0 g/dL LAB CHEMISTRY METHOD 10/06/2024 11:46 AM [facility] Albumin 2.8(L) 3.2 - 5.0 g/dL LAB CHEMISTRY METHOD 10/06/2024 11:46 AM [facility] Total Bilirubin 0.4 0.0 - 1.4 mg/dL LAB CHEMISTRY METHOD 10/06/2024 11:46 AM EST [facility] Blood Venous blood specimen / Unknown Venipuncture / Unknown 10/06/2024 10:25 AM EST 10/06/2024 11:21 AM EST us Elder Jacobs MD LAB BLOOD ORDERABLES Final Result [facility] [address] [place] [address], documented in this encounter Visit Diagnoses Diagnosis Primary adenocarcinoma of right lung (CMS/HCC)- Primary Hypothyroidism (acquired) Unspecified hypothyroidism documented in this encounter Care Teams Unemployment Claims Adjudicator Relationship Specialty Start Date End Date Pascale Johnson MD [address] [place] [phone] PCP - General Internal Medicine 07/14/24 documented as of this encounter
== END 2024-10-25 13:37 | disposition home or self-care (01) ==
PROVIDERS: PCP Internal Medicine; Visit Provider Internal Medicine
DX: I10 Essential (primary) hypertension (principal); E11.9 Type 2 diabetes mellitus without complications; C34.90 Malignant neoplasm of unspecified part of unspecified bronchus or lung

== ENCOUNTER → 2024-10-25 12:30 | Outpatient (BNVA) | payer MEDICARE, OTHER, SELFPAY | PROVIDERS: PCP Internal Medicine; Visit Provider Internal Medicine | DX: I10 Essential (primary) hypertension (principal); E11.9 Type 2 diabetes mellitus without complications; C34.90 Malignant neoplasm of unspecified part of unspecified bronchus or lung | CPT/HCPCS: 96127; 99212 ==

== ENCOUNTER 2025-01-03 13:33 | Outpatient (AMB) | payer MEDICARE, OTHER, SELFPAY ==
--- NOTE | 2025-01-03 13:36 | MHC.PC.OV ---
Vital Signs 01/03/25 13:37 01/03/25 14:02 Height 5 ft 6 in Weight 163 lb BMI 26.3 BP 140/68 H 140/70 H Blood Pressure Location Lt brachial Rt brachial Position Sitting Sitting Respiration 20 Pulse 85 Pulse Source Pulse Oximeter Temp 98.8 F Temp Source Oral Pulse Oximetry (%) 94 Oxygen Delivery Method Room Air Intake Visit Reasons: F/u care Intake Note: Pt is here today for a follow up visit. Allergies codeine Allergy (Unknown, Verified 01/03/25 13:58) vomitting Sulfa (Sulfonamide Antibiotics) Allergy (Unknown, Verified 01/03/25 13:58) hallucinating Medication List - Last Reconciled 01/03/25 by Pascale Johnson MD albuterol sulfate 90 mcg/actuation 2 puffs inhalation Q6H atenolol 50 mg PO DAILY blood sugar diagnostic (FreeStyle Lite Strips) USE TO CHECK BLOOD SUGAR ONCE A DAY DIRECTED blood-glucose meter (FreeStyle [place] kit) Test blood sugar once a day cholecalciferol (vitamin D3) 50 mcg PO DAILY folic acid PO lancets (FreeStyle Lancets) Test blood sugar once a day nystatin 1 appl topical BID Tobacco use date assessed: 01/03/25 Dental Screening Dental Screen Date: 10/25/24 HPI F/u care HPI Details Patient presents for the follow-up. Hypertension is controlled on atenolol. Losartan was discontinued because of low blood pressure readings. Patient has been getting chemotherapy for lung CA and established with [facility]. [facility] Medical History (Updated 01/03/25 @ 15:15 by Pascale Johnson MD) Adenocarcinoma of lung, stage 4 Vitamin D deficiency Diabetes Microalbuminuria Asthma History of TIAs HTN (hypertension) Surgical History H/O: hysterectomy Family History Father History of cancer Mother No problems noted. Social History Housing: House Patient Tobacco Use Status: Former Tobacco user e-Cigarette/Vaping Use: Never Used service: No Current occupational status: retired Cognitive needs: No Hearing needs: No Vision needs: Yes Questionnaire PHQ-9 Over the last 2 weeks, how often have you been bothered by any of the following problems? 1. Little interest or pleasure in doing things: not at all 2. Feeling down, depressed, or hopeless: not at all 3. Trouble falling or staying asleep, or sleeping too much: several days 4. Feeling tired or having little energy: several days 5. Poor appetite or overeating: not at all 6. Feeling bad about yourself - or that you are a failure or have let yourself or your family down: not at all 7. Trouble concentrating on things, such as reading the newspaper or watching television: not at all 8. Moving or speaking so slowly that other people could have noticed. Or the opposite - being so fidgety or restless that you have been moving around a lot more than usual: not at all 9. Thoughts that you would be better off or of hurting yourself in some way: not at all Total score: 2 Depression Screening Interpretation: Negative Depression Screening Done: Yes 80184 - PHQ-9 Billing: Yes Source: Developed by Drs. Chetan Strong, Emma Maya, Celestino Franklin and colleagues, with an educational james from [employer]. Thrive Questionnaire Date Thrive assessed: 04/23/24 I am a: Patient What is your living situation today?: I have a steady place to live Within the past 12 months, did the food you bought not last and you didn't have the money to get more?: Never true Within the past 12 months, did you worry whether your food would run out before you got money to buy more?: Never true Do you have trouble paying for medicines?: No Do you have trouble getting transportation to medical appointments?: No Do you have trouble paying your heating and electricity bill?: No Do you have trouble taking care of your child, family member or friend?: No Do you have trouble with day-to-day activities such as bathing, preparing meals, shopping, managing finances, etc.?: No Are you currently unemployed and looking for a job?: No Are you interested in more education?: Yes Please select the resources that you would like help with: None Currently or been in a relationship where the following occur: No concerns reported THRIVE Score: 0 KELLIE-7 AMB Questionnaire KELLIE-7 Date KELLIE - 7 assessed: 10/25/24 Source: Developed by DrsMarianela Strong, Emma Maya, Celestino Franklin and colleagues, with an educational james from [employer]. Review of Systems Const All systems reviewed & are unremarkable except as noted in HPI and below Eyes Reports no additional complaints ENT Reports no additional complaints Card Reports no additional complaints Resp Reports no additional complaints GI Reports no additional complaints Reports no additional complaints Physical exam (Primary Care) Vital Signs: Last Vital Signs Temp 98.8 F 01/03/25 13:37 Pulse 85 01/03/25 13:37 Resp 20 01/03/25 13:37 BP 140/70 H 01/03/25 14:02 Pulse Ox 94 01/03/25 13:37 Oxygen Delivery Method Room Air 01/03/25 13:37 BMI result Body Mass Index 26.3 Tobacco/Smoking Status: Tobacco use Status Tobacco use date assessed 01/03/25 01/03/25 13:52 Patient Tobacco Use Status Former Tobacco user 01/03/25 13:37 e-Cigarette/Vaping Use Never Used 01/03/25 13:37 PHQ-9: PHQ-9 Score PHQ-9: Total score 2 01/03/25 14:04 Depression Screening Interpretation: Negative Thrive Assessment: Date of Thrive Assessment Date Thrive assessed 04/23/24 01/03/25 13:37 Currently or been in a relationship where the following occur: No concerns reported Const General: no acute distress HENMT Head: Yes normal to inspection Throat: Yes posterior oropharynx normal Neck Neck: Yes no lymphadenopathy and Yes supple Resp Effort & Inspection: normal respiratory effort Auscultation: diminished lung sounds on the right in the lower lung escalona Cardio Rhythm: regular rhythm Heart sounds: S1 normal heart sound present and S2 normal heart sound present GI Inspection: Yes normal to inspection Palpation (GI): Soft to palpation Coding Level of Care Code Est Pt Level 4 (80332) Diagnoses Adenocarcinoma of lung, stage 4 C34.90 HTN (hypertension) I10 Diabetes E11.9 Additional Codes PHQ-9 - 35447 - PHQ-9 Billing: Yes ([id number]) Assessment & Plan Assessment & Plan (1) Adenocarcinoma of lung, stage 4: Comment: recurrent pleural R effusion, pleural Pleurx, on chemo Brenda 09/2024 Code(s): C34.90 - Malignant neoplasm of unspecified part of unspecified bronchus or lung Category: Medical Plan: Follow-up with oncology (2) HTN (hypertension): Comment: continue medications Code(s): I10 - Essential (primary) hypertension Category: Medical Plan: Continue atenolol (3) Diabetes: Comment: A1c was 7.2, . Continue ADA diet increase physical activity weight loss discussed with the patient, pt declined med Code(s): E11.9 - Type 2 diabetes mellitus without complications Category: Medical Plan: Continue ADA diet patient follows up with Oncology regularly and will have A1c checked at [facility], she declined treatment for diabetes
[2025-01-03 13:37] VITALS: BP 140/68; PULSE 85; RESP 20; TEMP 37.1; O2SAT 94; BMI 26.3
[2025-01-03 14:02] VITALS: BP 140/70
--- OUTSIDE RECORDS SUMMARY | 2025-01-03 15:03 | XMS_ITS ---
Author Name [facility] Organization Unknown History of Medication Use Medication Directions Dispensed Refills Start Date End Date Stat doxycycline (VIBRAMYCIN) 100 mg capsule Take 1 capsule (100 mg total) by mouth 2 (two) times a day for 7 days. Take with at least 8 ounces (large glass) of water, do not lie down for 30 minutes after. Administer 2 hours before or after multivitamins, antacids, or other products containing polyvalent cations (i.e., calcium, iron, magnesium 12/10/2024 active Trelegy Ellipta 100-62.5-25 mcg inhaler 09/15/2024 active dexAMETHasone (DECADRON) 4 mg tablet Take 1 tablet (4 mg total) by mouth 1 (one) time each day. Take 1 tablet by mouth with breakfast and morning on day before chemotherapy and the day after chemotherapy 09/10/2024 active folic acid (FOLVITE) 1 mg tablet Take 1 tablet (1 mg total) by mouth 1 (one) time each day. 08/11/2024 active albuterol HFA (PROAIR HFA ; PROVENTIL HFA ; VENTOLIN HFA) 90 mcg/actuation inhaler Inhale 1 puff by mouth every 6 (six) hours if needed. 06/01/2024 active atenoloL (TENORMIN) 50 mg tablet Take 1 tablet (50 mg total) by mouth 1 (one) time each day. 05/12/2024 active losartan-hydroCHLOROt hiazide (HYZAAR) 50-12.5 mg per tablet Take 1 tablet by mouth 1 (one) time each day. 05/12/2024 active Problems Problem Status Onset Date Problem Type Date of Resoluti on Source Hypothyroidism (acquired) active 2024-09-16 ProblemAct [facility] Primary adenocarcinoma of right lung (CMS/HCC V24, CMS/HCC V28) active 2024-09-16 ProblemAct [facility] IBS (irritable bowel syndrome) active ProblemAct [facility] Pleural effusion, malignant (CMS/HCC V28) active 2024-08-12 ProblemAct [facility]_T HS[facility]AN
--- OUTSIDE RECORDS SUMMARY | 2025-01-03 15:04 | XMS_ITS ---
Author Organization [facility] Address [address] [place] [address] Phone Care Team Providers Care Automobile Relocation Engineer Name Role Phone Pascale Johnson MD Primary Care Provider [phone] Active Problems Problem Noted Date Diagnosed Date Primary adenocarcinoma of ri ght lung (CMS/HCC V24, CMS/HCC V28) 09/16/2024 Hypothyroidism (acquired) 09/16/2024 Pleural effusion, malignant (CMS/HCC V28) 2023 IBS (irritable bowel syndrome) Current Oncology Plans Pembrolizumab + PEMEtrexed* Plan Start Date:09/17/2024 Plan Provider:Elder Jacobs MD Linked Problems Primary adenocarcinoma of ri ght lung (CMS/HCC V24, CMS/HCC V28)Pleural effusion, malignant (CMS/HCC V28)Hypothyroidism (acquired) Treatment Medications Current Day (Day 1 , Cycle 6 - Planned for 12/31/2024) Next Day (Day 1, Cycle 7 - Planned for 01/21/2025) pembrolizumab (KEYTRUDA)pembrolizumab (KEYTRUDA) chemo IVPB (adult)PEMEtrexed (ALIMTA)PEMEtrexed [...] treatments are documented for this patient in [facility]. Treatments may have been administered in another system. Resolved Problems Problem Noted Date Diagnosed Date Resolved Date Pleural effusion 07/14/2024 07/15/2024
--- OUTSIDE RECORDS SUMMARY | 2025-01-03 15:04 | XMS_ITS | Clinical Summary ---
Author Organization [facility] Address [address] [place] [address] Phone Care Team Providers Care Instructional Supervisor Name Role Phone Pascale Johnson MD Primary Care Provider [phone] Allergies Active Allergy Reactions Criticality Noted Date Comments Codeine Nausea And Vomiting 07/14/2024 Sulfa (Sulfonamide Antibiotics) Hallucinations,Renal Impairment High 07/14/2024 Medications atenoloL (TENORMIN) 50 mg tablet Take 1 tablet (50 mg total) by mouth 1 (one) time each day. 05/12/20 24 Active albuterol HFA (PROAIR HFA ; PROVENTIL HFA ; VENTOLIN HFA) 90 mcg/actuation inhaler Inhale 1 puff by mouth every 6 (six) hours if needed. 06/01/20 24 Active folic acid (FOLVITE) 1 mg tablet Take 1 tablet (1 mg total) by mouth 1 (one) time each day. 30 each 5 08/11/20 24 025 Active dexAMETHasone (DECADRON) 4 mg tablet Take 1 tablet (4 mg total) by mouth 1 (one) time each day. Take 1 tablet by mouth with breakfast and morning on day before chemotherapy and the day after chemotherapy 6 each 2 09/10/19 25 Active Trelegy Ellipta 100-62.5-25 mcg inhaler 09/15/19 25 Active losartan-hydro CHLOROthiazide (HYZAAR) 50-12.5 mg per tablet Take 1 tablet by mouth 1 (one) time each day. 05/12/20 24 025 Discontinued ondansetron (ZOFRAN) 8 mg tabletIndicati ons:Malignant pleural effusion (CMS/HCC V28),Primary lung adenocarcinoma , right (CMS/HCC V24, CMS/HCC V28) Take 1 tablet (8 mg total) by mouth every 8 (eight) hours if needed for nausea or vomiting. 30 tablet 2 09/10/19 25 025 doxycycline (VIBRAMYCIN) 100 mg capsuleIndicat ions:Malignant pleural effusion (CMS/HCC V28),Celluliti s of chest wall Take 1 capsule (100 mg total) by mouth 2 (two) times a day for 7 days. Take with at least 8 ounces (large glass) of water, do not lie down for 30 minutes after. Administer 2 hours before or after multivitamins, antacids, or other products containing polyvalent cations (i.e., calcium, iron, magnesium, selenium, zinc). 14 each 12/11/19 25 025 doxycycline (VIBRAMYCIN) 100 mg capsuleIndicat ions:Celluliti s of chest wall Take 1 capsule (100 mg total) by mouth 2 (two) times a day for 7 days. Take with at least 8 ounces (large glass) of water, do not lie down for 30 minutes after. Administer 2 hours before or after multivitamins, antacids, or other products containing polyvalent cations (i.e., calcium, iron, magnesium, selenium, zinc). 14 each 12/22/19 25 025 amoxicillin-cl avulanate (AUGMENTIN) 875-125 mg per tabletIndicati ons:Cellulitis of chest wall Take 1 tablet by mouth 2 (two) times a day for 7 days. 14 tablet 12/22/19 25 025 Active Problems Problem Noted Date Diagnosed Date Primary adenocarcinoma of ri ght lung (CMS/HCC V24, CMS/HCC V28) 09/16/2024 Hypothyroidism (acquired) 09/16/2024 Pleural effusion, malignant (CMS/HCC V28) 2023 IBS (irritable bowel syndrome) Resolved Problems Problem Noted Date Diagnosed Date Resolved Date Pleural effusion 07/14/2024 07/15/2024 Encounters Date Type Department Care Team Description 12/29/2024 11:30 AM EDT Office Visit [facility] Hematology Oncology [address] [place] [phone] Elder Jacobs MD Primary adenocarcinoma of right lung ([facility]/HCC V24, CMS/HCC V28) (Primary Dx); Pleural effusion, malignant ([facility]/HCC V28) 12/24/2024 1:42 PM EDT - 12/24/2024 11:59 PM EDT Hospital Encounter [facility] PET Scan [address] [place] [phone] Primary adenocarcinoma of right lung (CMS/HCC V24, CMS/HCC V28); Adenocarcinoma of overlapping sites of right lung (CMS/HCC V24, [facility]/HCC V28) Discharge Disposition: Home or Self Care 12/21/2024 1:00 PM EDT Office Visit Pulmonology [facility] [address] [phone] Yesenia Knight MD Primary adenocarcinoma of lung, unspecified laterality (CMS/HCC V24, CMS/HCC V28) (Primary Dx); Cellulitis of chest wall; Malignant pleural effusion ([facility]/HCC V28) 12/16/2024 Telephone Thoracic Surgery - [place] [address] [phone] Katrina Schafer RN 12/13/2024 1:30 PM EDT - 12/13/2024 11:59 PM EDT Hospital Encounter [facility] Infusion Center [address] [facility] [address] [place] [phone] Elder Jacobs MD Primary adenocarcinoma of right lung ([facility]/HCC V24, CMS/HCC V28) (Primary Dx); Pleural effusion, malignant ([facility] V28); Hypothyroidism (acquired) Discharge Disposition: Home or Self Care 12/13/2024 Telephone [address] [phone] Yesenia Knight MD 12/10/2024 3:30 PM EDT Office Visit Pulmonology [facility] [address] [phone] Yesenia Knight MD Primary adenocarcinoma of lung, unspecified laterality (CMS/HCC V24, CMS/HCC V28) (Primary Dx); Malignant pleural effusion (CMS/HCC V28); Cellulitis of chest wall 12/08/2024 10:30 AM EDT Office Visit [facility] Hematology Oncology [address] [place] [phone] Elder Jacobs MD Primary adenocarcinoma of right lung (CMS/HCC V24, CMS/HCC V28) (Primary Dx); Pleural effusion, malignant (CMS/HCC V28) 11/22/2024 12:58 PM EDT - 11/22/2024 11:59 PM EDT Hospital Encounter [facility] [address] [place] [phone] Elder Jacobs MD Primary adenocarcinoma of right lung (CMS/HCC V24, CMS/HCC V28) (Primary Dx); Pleural effusion, malignant ([facility]/HCC V28); Hypothyroidism (acquired) Discharge Disposition: Home or Self Care 11/17/2024 10:45 AM EDT Office Visit [facility] Hematology Oncology [address] [place] [phone] Elder Jacobs MD Primary adenocarcinoma of right lung (CMS/HCC V24, CMS/HCC V28) (Primary Dx) 11/12/2024 1:30 PM EDT Office Visit Pulmonology - [place] [address] [phone] Yesenia Knight MD Primary adenocarcinoma of lung, unspecified laterality (CMS/HCC V24, CMS/HCC V28) (Primary Dx); Malignant pleural effusion (CMS/HCC V28) 11/09/2024 Telephone Pulmonology - [place] [address] [phone] Yesenia Knight MD bloody drainage from Plurex 11/01/2024 12:51 PM EST - 11/01/2024 11:59 PM EST Hospital Encounter [facility] [address] [place] [phone] Elder Jacobs MD Primary adenocarcinoma of right lung (CMS/HCC V24, CMS/HCC V28) (Primary Dx); Pleural effusion, malignant ([facility]/HCC V28); Hypothyroidism (acquired) Discharge Disposition: Home or Self Care 10/26/2024 10:00 AM EST Office Visit [facility] Hematology Oncology [address] [place] [phone] Elder Jacobs MD Primary adenocarcinoma of right lung (CMS/HCC V24, CMS/HCC V28) (Primary Dx) 10/08/2024 12:54 PM EST - 10/08/2024 11:59 PM EST Hospital Encounter [facility] [address] [place] [phone] Elder Jacobs MD Primary adenocarcinoma of right lung (CMS/HCC V24, CMS/HCC V28) (Primary Dx); Pleural effusion, malignant ([facility] V28); Hypothyroidism (acquired) Discharge Disposition: Home or Self Care 10/06/2024 9:45 AM EST Office Visit [facility] Hematology Oncology [address] [place] [phone] Elder Jacobs MD Primary adenocarcinoma of right lung ([facility]/HCC V24, CMS/HCC V28) (Primary Dx); Hypothyroidism (acquired) from Last 3 Months Surgical History Surgery Date Site/Laterality Comments HYSTERECTOMY EYE SURGERY glaucoma Medical History Medical History Date Comments Hypertension IBS (irritable bowel syndrome) Asthma PONV (postoperative nausea and vomiting) HL (hearing loss) Blindness cataracts Dental disease full set Diabetes mellitus ([facility] V24, CMS/HCC V28) diet controlled Bleeding internal hemorrhoids Joint pain [...] Sign Reading Time Taken Comments Blood Pressure 143/52 12/29/2024 11:22 AM EDT Pulse 88 12/29/2024 11:22 AM EDT Temperature 36.2 ??C (97.2 ??F) 12/29/2024 11:22 AM E DT Respiratory Rate 18 12/13/2024 1:43 PM EDT Oxygen Saturation 94% 12/29/2024 11:22 AM EDT Inhaled Oxygen Concentration - - Weight 74.8 kg (165 lb) 12/29/2024 11:22 AM EDT Height 167.6 cm (5' 6 ) 12/21/2024 12:59 PM EDT Body Mass Index 26.63 12/21/2024 12:59 PM EDT Plan of Treatment Upcoming Encounters Date Type Department Care Team (Late st Contact Info) Description 01/07/2025 3:00 PM EDT Office Visit Pulmonology - [place] 299 [facility] [address] [place] [phone] Yesenia Knight MD [address] [place] [address] 01/21/2025 11:45 AM EDT Office Visit [facility] Hematology Oncology [address] [place] [phone] Elder Jacobs MD [address] [place] [phone] Health Maintenance Due Date Last Done Comments COVID-19 Vaccine (#1) 1945 DTaP,Tdap,and Td Vaccines (1 - Tdap) 1961 Zoster Vaccines (1 of 2) 1961 RSV Immunization Adult Patients (1 - 1-dose 75+ series) 2017 Pneumococcal Vaccine: 50+ Years (2 of 2 - PPSV23) 07/12/2019 05/17/2019, 11/13/2018 Cholesterol Screening (Lipid Panel) 07/14/2024 Depression Screening 07/14/2024 Medicare Annual Wellness Visit 07/14/2024 Osteoporosis Screening (Bone Density Screening) 07/14/2024 Social Influencers of Health Screening 07/14/2024 Influenza Vaccine (Season Ended) 2025 05/17/2019, 11/12/2018, 04/24/2016, Additional history exists Falls Risk Assessment 12/13/2025 12/13/2024 Hypertension/CHF/CAD Annual BMP Blood Test 12/29/2025 12/29/2024, 12/10/2024, 11/17/2024, Additional history exists HIB Vaccines Aged Out No longer eligi [...] age to complete this topic Meningococcal B Vaccine Aged Out No l onger eligible based on patient's age to complete this topic RSV Immunization Patients Under 20 months Aged Out No longer eligible based on patient's age to complete this topic Varicella Vaccines Aged Out No longer eligible based on patient's age to complete this topic Procedures Procedure Name Priority Date/Time Associated Diagnosis Comments CBC WITH AUTO DIFFERENTIAL Routine 12/29/2024 12:49 PM EDT Primary adenocarcinoma of right lung (CMS/HCC V24, CMS/HCC V28) THYROID STIMULATING HORMONE Routine 12/29/2024 12:49 PM EDT Primary adenocarcinoma of right lung (CMS/HCC V24, CMS/HCC V28) Hypothyroidism (acquired) COMPREHENSIVE METABOLIC PANEL Routine 12/29/2024 12:49 PM EDT Primary adenocarcinoma of right lung (CMS/HCC V24, CMS/HCC V28) CBC AND DIFFERENTIAL Routine 12/29/2024 12:49 PM EDT Primary adenocarcinoma of right lung (CMS/HCC V24, CMS/HCC V28) PET CT SKULL TO MID THIGH SUBSEQUENT Routine 12/24/2024 4:05 PM EDT Primary adenocarcinoma of right lung (CMS/HCC V24, CMS/HCC V28) Adenocarcinoma of overlapping sites of right lung (CMS/HCC V24, CMS/HCC V28) DIFFERENTIAL BODY FLUID Routine 12/21/2024 1:47 PM EDT Malignant pleural effusion (CMS/HCC V28) PATHOLOGIST REVIEW BODY FLUID Routine 12/21/2024 1:47 PM EDT Malignant pleural effusion (CMS/HCC V28) PROTEIN, BODY FLUID Routine 12/21/2024 1 :47 PM EDT Malignant pleural effusion (CMS/HCC V28) LACTATE DEHYDROGENASE, BODY FLUID Routine 12/21/2024 1:47 PM EDT Malignant pleural effusion (CMS/HCC V28) GLUCOSE, BODY FLUID Routine 12/21/2024 1 :47 PM EDT Malignant pleural effusion (CMS/HCC V28) CELL COUNT WITH REFLEX DIFFERENTIAL, BODY FLUID Routine 12/21/2024 1:47 PM EDT Malignant pleural effusion (CMS/HCC V28) DIFFERENTIAL BODY FLUID Routine 12/10/2024 4:37 PM EDT Malignant pleural effusion (CMS/HCC V28) PROTEIN, BODY FLUID Routine 12/10/2024 4 :37 PM EDT Malignant pleural effusion (CMS/HCC V28) LACTATE DEHYDROGENASE, BODY FLUID Routine 12/10/2024 4:37 PM EDT Malignant pleural effusion (CMS/HCC V28) GLUCOSE, BODY FLUID Routine 12/10/2024 4 :37 PM EDT Malignant pleural effusion (CMS/HCC V28) CELL COUNT WITH REFLEX DIFFERENTIAL, BODY FLUID Routine 12/10/2024 4:37 PM EDT Malignant pleural effusion (CMS/HCC V28) CBC WITH AUTO DIFFERENTIAL Routine 12/10/2024 2:41 PM EDT Primary adenocarcinoma of right lung (CMS/HCC V24, CMS/HCC V28) THYROID STIMULATING HORMONE Routine 12/10/2024 2:41 PM EDT Primary adenocarcinoma of right lung (CMS/HCC V24, CMS/HCC V28) Hypothyroidism (acquired) COMPREHENSIVE METABOLIC PANEL Routine 12/10/2024 2:41 PM EDT Primary adenocarcinoma of right lung (CMS/HCC V24, CMS/HCC V28) CBC AND DIFFERENTIAL Routine 12/10/2024 2:41 PM EDT Primary adenocarcinoma of right lung (CMS/HCC V24, CMS/HCC V28) CBC WITH AUTO DIFFERENTIAL Routine 11/17/2024 11:29 AM EDT Primary adenocarcinoma of right lung (CMS/HCC V24, CMS/HCC V28) THYROID STIMULATING HORMONE Routine 11/17/2024 11:29 AM EDT Primary adenocarcinoma of right lung (CMS/HCC V24, CMS/HCC V28) Hypothyroidism (acquired) COMPREHENSIVE METABOLIC PANEL Routine 11/17/2024 11:29 AM EDT Primary adenocarcinoma of right lung (CMS/HCC V24, CMS/HCC V28) CBC AND DIFFERENTIAL Routine 11/17/2024 11:29 AM EDT Primary adenocarcinoma of right lung (CMS/HCC V24, CMS/HCC V28) CBC WITH AUTO DIFFERENTIAL Routine 10/29/2024 1:35 PM EST Primary adenocarcinoma of right lung (CMS/HCC V24, CMS/HCC V28) THYROID STIMULATING HORMONE Routine 10/29/2024 1:35 PM EST Primary adenocarcinoma of right lung (CMS/HCC V24, CMS/HCC V28) Hypothyroidism (acquired) COMPREHENSIVE METABOLIC PANEL Routine 10/29/2024 1:35 PM EST Primary adenocarcinoma of right lung (CMS/HCC V24, CMS/HCC V28) CBC AND DIFFERENTIAL Routine 10/29/2024 1:35 PM EST Primary adenocarcinoma of right lung (CMS/HCC V24, CMS/HCC V28) CBC WITH AUTO DIFFERENTIAL Routine 10/06/2024 10:25 AM EST Primary adenocarcinoma of right lung (CMS/HCC V24, CMS/HCC V28) THYROID STIMULATING HORMONE Routine 10/06/2024 10:25 AM EST Primary adenocarcinoma of right lung (CMS/HCC V24, CMS/HCC V28) Hypothyroidism (acquired) COMPREHENSIVE METABOLIC PANEL Routine 10/06/2024 10:25 AM EST Primary adenocarcinoma of right lung (CMS/HCC V24, CMS/HCC V28) CBC AND DIFFERENTIAL Routine 10/06/2024 10:25 AM EST Primary adenocarcinoma of right lung (CMS/HCC V24, CMS/HCC V28) from Last 3 Months Results * (ABNORMAL) CBC auto differential (12/29/2024 12:49 PM EDT) Only the most recent of5 resultswithin the time period is included. WBC 3.8(L) 4.8 - 10.8 K/mcL LAB HEMETOLOGY METHOD 12/29/2024 4:44 PM EDT [facility] RBC 2.10(L) 3.80 - 4.80 M/mcL LAB HEMETOLOGY METHOD 12/29/2024 4:44 PM EDT [facility] Hemoglobin 7.6(L) 11.5 - 16.0 g/dL LAB HEMETOLOGY METHOD 12/29/2024 4:44 PM EDT [facility] Hematocrit 23.5(L) 35.0 - 47.0 % LAB HEMETOLOGY METHOD 12/29/2024 4:44 PM EDT [facility] MCV 110.8(H) 79.0 - 98.0 FL LAB [facility] MCH 35.8(H) 27.0 - 32.0 pcg LAB HEMETOLOGY METHOD 12/29/2024 4:44 PM [facility] MCHC 32.3 32.0 - 37.0 g/dL LAB HEMETOLOGY METHOD 12/29[facility]2024 4[facility] RDW 14.6 11.0 - 15.0 % LAB HEMETOLOGY METHOD 12/29/2024 4:44 PM [facility] Platelets 246 130 - 400 K/mcL LAB HEMETOLOGY METHOD 12/29/2024 4:44 PM [facility] MPV 11.0 7.0 - 11.0 FL LAB HEMETOLOGY METHOD 12/29[facility]2024 4[facility] NRBC 0.5 <1.0 % LAB HEMETOLOGY METHOD 12/29/2024 4:44 PM [facility] NRBC Absolute 0.02 <0.10 K/mcL LAB HEMETOLOGY METHOD 12/29/2024 4:44 PM [facility] Neutrophils Relative 56.2 % LAB HEMETOLOGY METHOD 12/29/2024 4:44 PM [facility] Lymphocytes Relative 23.7 % LAB HEMETOLOGY METHOD 12/29[facility]2024 4:44 [facility] Monocytes Relative 18.2 % LAB HEMETOLOGY METHOD 12/29/2024 4:44 PM [facility] Eosinophils Relative 0.5 % LAB HEMETOLOGY METHOD 12/29/2024 4:44 PM [facility] Basophils Relative 0.3 % LAB HEMETOLOGY METHOD 12/29/2024 4:44 PM EDT [facility] Immature Granulocytes Relative 1.1 % LAB HEMETOLOGY METHOD 12/29/2024 4:44 PM EDT [facility] Neutrophils Absolute 2.13 1.50 - 7.00 K/mcL LAB HEMETOLOGY METHOD 12/29/2024 4:44 PM EDT [facility] Lymphocytes Absolute 0.90(L) 1.00 - 5.00 K/mcL LAB HEMETOLOGY METHOD 12/29/2024 4:44 PM EDT [facility] Monocytes Absolute 0.69 0.20 - 1.00 K/mcL LAB HEMETOLOGY METHOD 12/29/2024 4:44 PM EDT [facility] Eosinophils Absolute 0.02 0.00 - 0.50 K/mcL LAB HEMETOLOGY METHOD 12/29/2024 4:44 PM EDT [facility] Basophils Absolute 0.01 0.00 - 0.20 K/mcL LAB HEMETOLOGY METHOD 12/29/2024 4:44 PM EDT [facility] Immature Granulocytes Absolute 0.04(H) 0.00 - 0.03 K/mcL LAB HEMETOLOGY METHOD 12/29/2024 4:44 PM EDT [facility] Blood Venous blood specimen / Unknown Venipuncture / Unknown 12/29/2024 12:49 PM EDT 12/29/2024 4:36 PM EDT us Elder Jacobs MD LAB BLOOD ORDERABLES Final Result [facility] [address] [place] [address], * Thyroid stimulating hormone (12/29/2024 12:49 PM EDT) Only the most recent of5 resultswithin the time period is included. TSH 3.78 0.40 - 4.00 mcIU/mL LAB CHEMISTRY METHOD 12/29/2024 5:57 PM T [facility] Blood Venous blood specimen / Unknown Venipuncture / Unknown 12/29/2024 12:49 PM EDT 12/29/2024 4:36 PM EDT us Elder Jacobs MD LAB BLOOD ORDERABLES Final Result [facility] [address] [place] [address], [place] [phone] * (ABNORMAL) Comprehensive metabolic panel (12/29/2024 12:49 PM EDT) Only the most recent of5 resultswithin the time period is included. Sodium 142 133 - 145 mmol/L LAB CHEMISTRY METHOD 12/29/2024 5:29 PM [facility] Potassium 3.4(L) 3.5 - 5.5 mmol/L LAB CHEMISTRY METHOD 12/29/2024 5:29 PM [facility] Chloride 105 96 - 110 mmol/L LAB CHEMISTRY METHOD 12/29/2024 5:29 PM [facility] CO2 30 21 - 32 mmol/L LAB CHEMISTRY METHOD 12/29/2024 5:29 PM [facility] Anion Gap 7 3 - 11 LAB CHEMISTRY METHOD 12/29/2024 5:29 PM [facility] Glucose 132(H) 70 - 100 mg/dL LAB CHEMISTRY METHOD 12/29/2024 5:29 PM [facility] BUN 15 5 - 25 mg/dL LAB CHEMISTRY METHOD 12/29/2024 5:29 PM [facility] Creatinine 0.91 0.50 - 1.10 mg/dL LAB CHEMISTRY METHOD 12/29/2024 5:29 PM [facility] eGFR 63 >=60 mL/min/1. 73m2 LAB CHEMISTRY METHOD 12/29/2024 5:29 PM EDT [facility] Comment:Calculation based on the??Chronic Kidney Disease Epidemiology Collaboration (CKD-EPI) equation refit??without adjustment for race. BUN/Creatinine Ratio 16.5 LAB CHEMISTRY METHOD 12/29/2024 5:29 PM EDT [facility] Calcium 8.7 8.5 - 10.5 mg/dL LAB CHEMISTRY METHOD 12/29/2024 5:29 PM [facility] AST (SGOT) 24 10 - 42 unit/L LAB CHEMISTRY METHOD 12/29/2024 5:29 PM [facility] ALT (SGPT) 16 10 - 60 unit/L LAB CHEMISTRY METHOD 12/29/2024 5:29 PM [facility] Alkaline Phosphatase 70 42 - 121 unit/L LAB CHEMISTRY METHOD 12/29/2024 5:29 PM [facility] Total Protein 5.6(L) 6.0 - 8.0 g/dL LAB CHEMISTRY METHOD 12/29/2024 5:29 PM [facility] Albumin 2.1(L) 3.2 - 5.0 g/dL LAB CHEMISTRY METHOD 12/29/2024 5:29 PM [facility] Total Bilirubin 0.4 0.0 - 1.4 mg/dL LAB CHEMISTRY METHOD 12/29/2024 5:29 PM [facility] Blood Venous blood specimen / Unknown Venipuncture / Unknown 12/29/2024 12:49 PM EDT 12/29/2024 4:36 PM EDT Elder Jacobs MD LAB BLOOD ORDERABLES Final Result [facility] [address] [place] [address], * PET CT Skull to Mid Thigh Subsequent (12/24/2024 4:05 PM EDT) Anatomical Region Laterality Modality Body Radiographic Maliha ging 12/29/2024 1:25 PM EDT Impressions 12/29/2024 1:49 PM EDT Decreased intensity of metabolic activity within right lower lobe mass and significant decrease in activity within mediastinal lymphadenopathy. New infiltrative airspace disease within the inferior right middle lobe and within the right lung base with associated metabolic activity is nonspecific and may represent atelectasis and/or pneumonia. Neoplastic infiltration considered less likely but cannot be excluded. Persistent mid transverse colonic metabolic activity with new less intense focus within the mid sigmoid colon. Underlying mass/polyp suspected especially along the mid transverse colon. Also persistent nonspecific intense metabolic activity along the anal canal. Consider GI consultation for further evaluation. -------- FINAL REPORT -------- Dictated By: James Delacruz Dictated Date: 12/29/2024 13:25 ET Assigned Physician: James Delacruz Reviewed and Electronically Signed By: James Delacruz Signed Date: 12/29/2024 13:49 ET Workstation ID: [id number] Transcribed By: Self Edit Transcribed Date: 12/29/2024 13:25 ET Narrative 12/29/2024 1:49 PM EDT INDICATION: Lung carcinoma, subsequent treatment strategy Prior relevant studies: PET/CT from August 18, 2024 Radiopharmaceutical: 11.4 mCi of F-18 FDG IV. Blood glucose: 127 mg/dl. PROCEDURE: Routine body FDG PET-CT imaging was performed from the skull base to the proximal/mid thighs and reconstructed in axial, coronal, and sagittal planes at the computer workstation with fused data from both the PET imaging study and attenuation correction CT. The CT portion of the examination was done strictly for attenuation correction and is not a true diagnostic CT examination. CTDI: 5.80 mGy FINDINGS: HEAD AND NECK: No abnormal FDG activity. THORAX: Persistent activity noted within the right lower lobe consistent hilar mass lesion with FDG max of 6, previously 9.2. 2 focal lesions located along the right anterior major fissure are not as well-demonstrated on the present study. New infiltrative airspace disease noted in this region with SUV max of 3.3. New infiltrative airspace disease also noted within the right lung base with SUV max of 3.8. Mild residual FDG activity within pretracheal node with SUV max of 2.7, previously 5.7. Mild residual FDG activity within subcarinal node with SUV max of 2.8, previously 6.6. Mild residual FDG activity within right hilar node with SUV max of 2.9, previously 6.3. Pleurx catheter noted within the right lung base with a catheter extending anteriorly along the pleural space towards the upper lobe. Right-sided effusion has decreased in size now consider small in volume and is has a loculated appearance. New trace left pleural effusion. ABDOMEN/PELVIS: Persistent focal activity along the redundant mid transverse colon with SUV max of 13.6, previously 16.6. No discrete nodule noted with underlying mass/polyp is suspected. New focal activity along the mid sigmoid colon with SUV max of 5. No definite visualized mass however underlying lesion cannot be excluded. Persistent anorectal activity with SUV max up to 6.6 is nonspecific and underlying pathology cannot be excluded. MUSCULOSKELETAL: No abnormal FDG activity. Procedure Note James Delacruz MD - 12/29/2024 INDICATION: Lung carcinoma, subsequent treatment strategy Prior relevant studies: PET/CT from August 18, 2024 Radiopharmaceutical: 11.4 mCi of F-18 FDG IV. Blood glucose: 127 mg/dl. PROCEDURE: Routine body FDG PET-CT imaging was performed from the skullbase to the proximal/mid thighs and reconstructed in axial, coronal, andsagittal planes at the computer workstation with fused data from both thePET imaging study and attenuation correction CT. The CT portion of theexamination was done strictly for attenuation correction and is not a truediagnostic CT examination. CTDI: 5.80 mGy FINDINGS: HEAD AND NECK: No abnormal FDG activity. THORAX: Persistent activity noted within the right lower lobe consistenthilar mass lesion with FDG max of 6, previously 9.2. 2 focal lesions located along the right anterior major fissure are not aswell-demonstrated on the present study. New infiltrative airspace diseasenoted in this region with SUV max of 3.3. New infiltrative airspace disease also noted within the right lung basewith SUV max of 3.8. Mild residual FDG activity within pretracheal node with SUV max of 2.7,previously 5.7. Mild residual FDG activity within subcarinal node with SUV max of 2.8,previously 6.6. Mild residual FDG activity within right hilar node with SUV max of 2.9,previously 6.3. Pleurx catheter noted within the right lung base with a catheter extendinganteriorly along the pleural space towards the upper lobe. Right-sidedeffusion has decreased in size now consider small in volume and is has aloculated appearance. New trace left pleural effusion. ABDOMEN/PELVIS: Persistent focal activity along the redundant midtransverse colon with SUV max of 13.6, previously 16.6. No discrete nodulenoted with underlying mass/polyp is suspected. New focal activity along the mid sigmoid colon with SUV max of 5. Nodefinite visualized mass however underlying lesion cannot be excluded. Persistent anorectal activity with SUV max up to 6.6 is nonspecific andunderlying pathology cannot be excluded. MUSCULOSKELETAL: No abnormal FDG activity. IMPRESSION: Decreased intensity of metabolic activity within right lower lobe mass andsignificant decrease in activity within mediastinal lymphadenopathy. New infiltrative airspace disease within the inferior right middle lobeand within the right lung base with associated metabolic activity isnonspecific and may represent atelectasis and/or pneumonia. Neoplasticinfiltration considered less likely but cannot be excluded. Persistent mid transverse colonic metabolic activity with new less intensefocus within the mid sigmoid colon. Underlying mass/polyp suspectedespecially along the mid transverse colon. Also persistent nonspecificintense metabolic activity along the anal canal. Consider GI consultationfor further evaluation. -------- FINAL REPORT -------- Dictated By: James Delacruz Dictated Date: 12/29/2024 13:25 ET Assigned Physician: James Delacruz Reviewed and Electronically Signed By: James Delacruz Signed Date: 12/29/2024 13:49 ET Workstation ID: [id number] Transcribed By: Self Edit Transcribed Date: 12/29/2024 13:25 ET us Elder Jacobs MD IM NM PROCEDURES Final Res ult * Cell count with reflex differential, body fluid (12/21/2024 1:47 PM EDT) Only the most recent of2 resultswithin the time period is included. Body Fluid Total Nucleated Cells 2,233 /mm3 LAB HEMETOLOGY METHOD 12/21/2024 3:18 PM EDT [facility] Body Fluid RBC 85,000 /mm3 LAB HEMETOLOGY METHOD 12/21/2024 3:18 PM EDT [facility] Body Fluid Color Red 12/21/2024 3:18 PM EDT [facility] Body Fluid Clarity Bloody 12/21/2024 3:18 PM EDT [facility] Body Fluid Source Pleural 12/21/2024 3:18 PM EDT [facility] Pleural Fluid Structure of right pleural cavity / Unknown Non-blood Collection / Unknown 12/21/2024 1:47 PM EDT 12/21/2024 2:00 PM EDT Narrative [facility] - 12/21/2024 3:18 PM EDT No reference ranges have been established for body fluids. Clinical correlation recommended. us Yesenia Knight MD LAB BODY FLUIDS AND STOOLS ORDERABLES Final Result [facility] [address] [place] [address], [place] [phone] * Differential body fluid (12/21/2024 1:47 PM EDT) Only the most recent of2 resultswithin the time period is included. Fluid Neutrophils % 8 % 12/21/2024 3:37 PM EDT [facility] Fluid Lymphocytes % 91 % 12/21/2024 3:37 PM EDT [facility] Fluid Monocytes/Macrop hages 1 % 12/21/2024 3:37 PM EDT [facility] Fluid Eosinophils % 0 % 12/21/2024 3:37 PM EDT [facility] Fluid Basophils % 0 % 12/21/2024 3:37 PM EDT [facility] Fluid Other Cells % 0 % 12/21/2024 3:37 PM EDT [facility] Pleural Fluid Structure of right pleural cavity / Unknown Non-blood Collection / Unknown 12/21/2024 1:47 PM EDT 12/21/2024 2:00 PM EDT Narrative [facility] - 12/21/2024 3:37 PM EDT No reference ranges have been established for body fluids. Clinical correlation recommended. Yesenia Knight MD LAB BODY FLUIDS AND STOOLS ORDERABLES Final Result Performing Organization Address [facility]/ZIP Co de Phone Number [facility] [address] [place] [address], [place] [phone] * Pathology review, body fluid (12/21/2024 1:47 PM EDT) Pathologist review Body Fluid Extracellular bacteria and occasional bacteria within neutrophils are present. ??Clinical correlation and follow-up is recommended. Few atypical epithelioid cell clusters are present, possibly representing a neoplastic cell population. ??(See note.) Note: According to clinic notes, the patient has pulmonary adenocarcinoma with positive pleural fluid involvement (diagnosed in August 2024. The case was discussed with Dr. Charisma Knight by Dr. Sushila Shah via secure text on 12/21/2024. 12/21/2024 5:19 PM EDT [facility] Pleural Fluid Structure of right pleural cavity / Unknown Non-blood Collection / Unknown 12/21/2024 1:47 PM EDT 12/21/2024 2:00 PM EDT us Yesenia Knight MD LAB BODY FLUIDS AND STOOLS ORDERABLES Final Result Performing Organization Address [facility]/ZIP Co de Phone Number [facility] [address] [place] [address], [place] [phone] * Protein, body fluid (12/21/2024 1:47 PM EDT) Only the most recent of2 resultswithin the time period is included. Pathologist [facility] Protein, Fluid 3.6 See Comment g/dL LAB CHEMISTRY METHOD 12/21/2024 2:46 PM EDT [facility] Pleural Fluid Structure of right pleural cavity / Unknown Non-blood Collection / Unknown 12/21/2024 1:47 PM EDT 12/21/2024 2:00 PM EDT Narrative [facility] - 12/21/2024 2:46 PM EDT No reference ranges have been established for body fluids. Clinical correlation recommended. Yesenia Knight MD LAB BODY FLUIDS AND STOOLS ORDERABLES Final Result Performing Organization Address [facility] de Phone Number [facility] [address] [place] [address], [place] [phone] * Lactate dehydrogenase, body fluid (12/21/2024 1:47 PM EDT) Only the most recent of2 resultswithin the time period is included. Pathologist [facility] LD, Fluid 422 See Comment unit/L LAB CHEMISTRY METHOD 12/21/2024 2:46 PM EDT [facility] Pleural Fluid Structure of right pleural cavity / Unknown Non-blood Collection / Unknown 12/21/2024 1:47 PM EDT 12/21/2024 2:00 PM EDT Narrative [facility] - 12/21/2024 2:46 PM EDT No reference ranges have been established for body fluids. Clinical correlation recommended. us Yesenia Knight MD LAB BODY FLUIDS AND STOOLS ORDERABLES Final Result Performing Organization Address City/[facility]/ZIP Co de Phone Number [facility] [address] [place] [address], [place] [phone] * Glucose, body fluid (12/21/2024 1:47 PM EDT) Only the most recent of2 resultswithin the time period is included. Glucose, Fluid 140 See Comment mg/dL LAB CHEMISTRY METHOD 12/21/2024 2:46 PM EDT [facility] Pleural Fluid Structure of right pleural cavity / Unknown Non-blood Collection / Unknown 12/21/2024 1:47 PM EDT 12/21/2024 2:00 PM EDT Narrative [facility] - 12/21/2024 2:46 PM EDT No reference ranges have been established for body fluids. Clinical correlation recommended. us Yesenia Knight MD LAB BODY FLUIDS AND STOOLS ORDERABLES Final Result [facility] [address] [place] [address], [place] [phone] from Last 3 Months Insurance MEDICARE [facility] Advance Directives * Full Code - Default [...] currently active code status orders. Care Teams Instructional Supervisor Relationship Specialty Start Date End Date Pascale Johnson MD [address] [place] [address] PCP - General Internal Medicine 07/14/24
--- OUTSIDE RECORDS SUMMARY | 2025-01-03 15:04 | XMS_ITS | Encounter Summary ---
Author Organization [facility] Address [id number] [place] [id number] Care Team Providers Care Family Therapist Name Role Phone Pascale Johnson MD Primary Care Provider [phone] Reason for Visit * Reason Comments Follow-up OFF BALANCE Encounter Details Date Type Department Care Team (Latest Contact Info) Description 12/29/2024 11:30 AM EDT Office Visit [facility] Hematology Oncology [address] [place] [address] Elder Jacobs MD [address] [place] [address] Primary adenocarcinoma of right lung (CMS/HCC V24, CMS/HCC V28) (Primary Dx); Pleural effusion, malignant (CMS/HCC V28) Social History Tobacco Use Types Packs/Day Years [...] 12/29/2024 11:22 AM E DT Respiratory Rate - - Oxygen Saturation 94% 12/29/2024 11:22 AM EDT Inhaled Oxygen Concentration - - Weight 74.8 kg (165 lb) 12/29/2024 11:22 AM EDT Height - - Body Mass Index 26.63 12/21/2024 12:59 PM EDT documented in this encounter Progress Notes * Elder Jacobs MD - 12/29/2024 11:30 AM EDT Diagnosis/treatment: 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 She started Keytruda/Alimta on 09/17/2024. Interval history: The patient is an 84-year-old formerly smoking female who developed gradually worsening dyspnea on exertion followed by dyspnea at rest in late 06/2024. She completed a course of empiric antibiotics with azithromycin and amoxicillin without benefit. She presented to the [facility] ER with dyspnea on 07/14/2024. 8 [...] metastatic adenocarcinoma, consistent with a pulmonary primary, [facility]-5-neamdikz positive, [id number]-jokbyrvq, M7-56-ihgguxaq, calretinin-negative, DRA-3-fjxrosaj, o68-oivrzcmk, QLHM-7-ixhjujvd. The Caris assay showed a PD-L1 TPS [...] She is tolerating Keytruda/Alimta reasonably well. She reports moderate fatigue x 5 days during week 1. She developed a rash on her back, inframammary folds, and groin during cycle 1 week, which resolved with a antifungal powder. She developed a rash on her back during cycle 2-week 1, which resolved with an antifungal powder. She denies a recurrent rash. A CBC on 12/10/2024 showed WBC 4.6, hemoglobin 8.9 with MCV of 113, and platelet count 455,000. A CBC on 12/29/2024 showed WBC 3.8, hemoglobin 7.6 MCV 111, and platelet count 246,000. She reports worsened fatigue and asthenia. Her daughter reports intermittent mild confusion. She reports mild gait imbalance. The patient reports decreased right Pleurx drainage, approximately 50 cc 2 times weekly. She was noted to have redness at the catheter site on 12/10/2024. She completed a course of doxycycline 7 days. A PET/CT on 12/24/2024 showed decreased uptake in the right lower lobe perihilar mass with SUV 6.0. There was decreased uptake in a right paratracheal node with SUV 2.7 (previously 5.7), and a subcarinal node with SUV 2.8 (previously 6.6). There was a significantly decreased right-sided effusion with atelectasis or infiltrate in the right middle lobe and right lung base. There was persistent uptake in the mid transverse colon with SUV 13.6 and new uptake in the mid- sigmoid colon with SUV 5.0. There was persistent uptake in the anorectal area with SUV 6.6. She reports ongoing mild anorexia since presentation.. 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 She has 3 daughters and 2 [...] right pleural effusion, PD-L1 TPS 15, KRAS [id number]. A right-sided Pleurx catheter was placed. The [...] She is tolerating Keytruda/Alimta reasonably well. She reports moderate fatigue x 5 days during week 1. She developed a rash on her back, inframammary folds, and groin during cycle 1 week, which resolved with a antifungal powder. She developed a rash on her back during cycle 2-week 1, which resolved with an antifungal powder. She denies a recurrent rash. She has had a worsening macrocytic anemia due to Alimta. She has become symptomatic regarding the anemia. Will transfuse with RBCs x 2 units. The patient and daughter request request a direct donation from the daughter. We will accommodate their request. The patient and daughter were adamant that would not except an RBC transfusion from an unknown donor. There has been a significant decrease in right Pleurx catheter drainage, suggestive of a tumor response. She was noted to have redness at the catheter site on 12/10/2024. She completed a course of doxycycline 7 days. Restaging PET/CT after 4 cycles showed a significant treatment response. We will delay therapy by 3 weeks to allow recovery from and management of the symptomatic anemia. We will consider restarting Keytruda/Alimta with a 20% dose-reduction of the Alimta due to the anemia. We would consider sotorasib in the second line of systemic therapy. Visit summary: The patient is an 84-year-old female who presented/2023 with a metastatic lung adenocarcinoma with a malignant right pleural effusion. She had been tolerating Keytruda/Alimta reasonably well despite moderate fatigue x 5 days. She developed a symptomatic anemia due to the Alimta therapy. The will transfuse RBCs x 2 units. The patient and daughter request a direct donation from the daughter. We will delay treatment by 3 weeks to allow recovery from the symptomatic anemia. We will consider restarting Keytruda/Alimta with a 20% dose-reduction of the Alimta due to the anemia. This encounter is of high risk. The patient has a metastatic lung cancer, which is a life-threatening condition. She remains on Keytruda/Alimta, which carries a risk of significant morbidity and mortality. documented in this encounter Plan of Treatment Upcoming Encounters Date Type Department Care Team (Late st Contact Info) Description 01/07/2025 3:00 PM EDT Office Visit Pulmonology - [place] [address] [phone] Yesenia Knight MD [address] [place] [id number] 01/21/2025 11:45 AM EDT Office Visit [facility] Hematology Oncology [address] [place] [address] Elder Jacobs MD [address] [place] [address] documented as of this encounter Visit Diagnoses Diagnosis Primary adenocarcinoma of right lung (CMS/HCC V24, CMS/HCC V28)- Primary Pleural effusion, malignant (CMS/HCC V28) Malignant pleural effusion documented in this encounter Discontinued Medications Medication Sig Discontinue Reason Start Date End Da te losartan-hydroCHLOROthia zide (HYZAAR) 50-12.5 mg per tablet Take 1 tablet by mouth 1 (one) time each day. 05/12/2024 01/01/2025 documented as of this encounter Care Teams Family Therapist Relationship Specialty Start Date End Date Pascale Johnson MD [address] [place] [phone] PCP - General Internal Medicine 07/14/24 documented as of this encounter
== END 2025-01-03 14:32 | disposition home or self-care (01) ==
LOC: HO.HMCC 13:34
PROVIDERS: PCP Internal Medicine; Visit Provider Internal Medicine
DX: C34.90 Malignant neoplasm of unspecified part of unspecified bronchus or lung (principal); I10 Essential (primary) hypertension; E11.9 Type 2 diabetes mellitus without complications

== ENCOUNTER → 2025-01-03 13:33 | Outpatient (BNVA) | payer MEDICARE, OTHER, SELFPAY | PROVIDERS: PCP Internal Medicine; Visit Provider Internal Medicine | DX: C34.90 Malignant neoplasm of unspecified part of unspecified bronchus or lung (principal); I10 Essential (primary) hypertension; E11.9 Type 2 diabetes mellitus without complications | CPT/HCPCS: 96127; 99212 ==

== ENCOUNTER 2025-01-21 17:30 | Outpatient (REF) | payer MEDICARE, OTHER, SELFPAY ==
--- OUTSIDE RECORDS SUMMARY | 2025-01-21 17:42 | XMS_ITS | Clinical Summary ---
Author Organization [facility] Address [address] [place] [address] Phone Care Team Providers Care Geriatric Physical Therapist Name Role Phone Pascale Johnson MD Primary Care Provider [phone] Allergies Active Allergy Reactions Criticality Noted Date [...] 30 each 5 08/11/20 24 025 Active Trelegy Ellipta 100-62.5-25 mcg inhaler 09/15/19 25 Active multivitamin tablet Take 1 tablet by mouth 1 (one) time each day. 30 each 01/22/20 25 025 Active thiamine (VITAMIN B-1) 100 mg tablet Take 1 tablet (100 mg total) by mouth 1 (one) time each day. 30 tablet 01/22/20 25 025 Active vancomycin/0. 9 % sod chloride (vancomycin in 0.9 % sodium chl) 1.5 gram/250 mL solution Infuse 250 mL (1.5 g total) into a venous catheter 1 (one) time each day for 21 days. 01/21/20 25 025 Active losartan-hydr oCHLOROthiazi de (HYZAAR) 50-12.5 mg per tablet Take 1 tablet by mouth 1 (one) time each day. 05/12/20 24 025 Discontinued dexAMETHasone (DECADRON) 4 mg tablet Take 1 tablet (4 mg total) by mouth 1 (one) time each day. Take 1 tablet by mouth with breakfast and morning on day before chemotherapy and the day after chemotherapy 6 each 2 09/10/19 25 025 Discontinued(S top Taking at Discharge) doxycycline (VIBRAMYCIN) 100 mg capsuleIndica tions:Celluli tis of chest wall Take 1 capsule (100 mg total) by mouth 2 (two) times a day for 7 days. Take with at least 8 ounces (large glass) of water, do not lie down for 30 minutes after. Administer 2 hours before or after multivitamins, antacids, or other products containing polyvalent cations (i.e., calcium, iron, magnesium, selenium, zinc). 14 each 12/22/19 25 025 amoxicillin-c lavulanate (AUGMENTIN) 875-125 mg per tabletIndicat ions:Cellulit is of chest wall Take 1 tablet by mouth 2 (two) times a day for 7 days. 14 tablet 12/22/19 25 025 Active Problems Problem Noted Date Diagnosed Date Clotted chest tube 01/12/2025 Primary adenocarcinoma of ri ght lung (CMS/HCC V24, CMS/HCC V28) 09/16/2024 Hypothyroidism (acquired) 09/16/2024 Pleural effusion, malignant (CMS/HCC V28) 2023 IBS (irritable bowel syndrome) Resolved Problems Problem Noted Date Diagnosed Date Resolved Date Pleural effusion 07/14/2024 07/15/2024 Encounters Date Type Department Care Team Description 01/18/2025 Telephone [facility] Hematology Oncology [address] [place] [phone] Elder Jacobs MD 01/12/2025 4:34 PM EDT - 01/20/2025 6:17 PM EDT Hospital Encounter [facility] Intermediate Care Unit [address] [place] [phone] Farhat Storey MD Seralathan, Manikandan, MD Zipagan, James T, MD Pleural effusion, malignant ([facility]/HCC V28) (Primary Dx); Clotted chest tube Discharge Disposition: Home-Health Care [place] 01/11/2025 3:30 PM EDT Office Visit Pulmonology - [place] [address] [phone] Yesenia Knight MD Malignant pleural effusion ([facility]/HCC V28) (Primary Dx) 01/10/2025 12:42 PM EDT - 01/10/2025 11:59 PM EDT Hospital Encounter [facility] Infusion Center [address] [place] [phone] Elder Jacobs MD Primary adenocarcinoma of right lung ([facility]/HCC V24, CMS/HCC V28) (Primary Dx) Discharge Disposition: Home or Self Care 12/29/2024 11:30 AM EDT Office Visit [facility] Hematology Oncology [address] [place] [phone] Elder Jacobs MD Primary adenocarcinoma of right lung (CMS/HCC V24, CMS/HCC V28) (Primary Dx); Pleural effusion, malignant ([facility]/HCC V28) 12/24/2024 1:42 PM EDT - 12/24/2024 11:59 PM EDT Hospital Encounter [facility] PET Scan [address] [place] [phone] Primary adenocarcinoma of right lung (CMS/HCC V24, CMS/HCC V28); Adenocarcinoma of overlapping sites of right lung (CMS/HCC V24, CMS/HCC V28) Discharge Disposition: Home or Self Care 12/21/2024 1:00 PM EDT Office Visit Pulmonology - [place] [address] [phone] Yesenia Knight MD Primary adenocarcinoma of lung, unspecified laterality (CMS/HCC V24, CMS/HCC V28) (Primary Dx); Cellulitis of chest wall; Malignant pleural effusion (CMS/HCC V28) 12/16/2024 Telephone Thoracic Surgery - [place] [address] [phone] Katrina Schafer RN 12/13/2024 1:30 PM EDT - 12/13/2024 11:59 PM EDT Hospital Encounter [facility] Infusion Center [address] [place] [phone] Elder Jacobs MD Primary adenocarcinoma of right lung (CMS/HCC V24, CMS/HCC V28) (Primary Dx); Pleural effusion, malignant (CMS/HCC V28); Hypothyroidism (acquired) Discharge Disposition: Home or Self Care 12/13/2024 Telephone [address]ology [address] [phone] Yesenia Knight MD 12/10/2024 3:30 PM EDT Office Visit Pulmonology [facility] [address] [phone] Yesenia Knight MD Primary adenocarcinoma of lung, unspecified laterality (CMS/HCC V24, CMS/HCC V28) (Primary Dx); Malignant pleural effusion (CMS/HCC V28); Cellulitis of chest wall 12/08/2024 10:30 AM EDT Office Visit [facility] Hematology Oncology [address] [place] [phone] Elder Jacobs MD Primary adenocarcinoma of right lung (CMS/HCC V24, CMS/HCC V28) (Primary Dx); Pleural effusion, malignant (CMS/HCC V28) 11/22/2024 12:58 PM EDT - 11/22/2024 11:59 PM EDT Hospital Encounter [facility] Infusion Center [address] [place] [phone] Elder Jacobs MD Primary adenocarcinoma of right lung (CMS/HCC V24, CMS/HCC V28) (Primary Dx); Pleural effusion, malignant (CMS/HCC V28); Hypothyroidism (acquired) Discharge Disposition: Home or Self Care 11/17/2024 10:45 AM EDT Office Visit [facility] Hematology Oncology [address] [place] [phone] Elder Jacobs MD Primary adenocarcinoma of right lung (CMS/HCC V24, CMS/HCC V28) (Primary Dx) 11/12/2024 1:30 PM EDT Office Visit Pulmonology - [place] [address] [phone] Yesenia Knight MD Primary adenocarcinoma of lung, unspecified laterality (CMS/HCC V24, CMS/HCC V28) (Primary Dx); Malignant pleural effusion ([facility]/HCC V28) 11/09/2024 Telephone Pulmonology - [place] [address] [phone] Yesenia Knight MD bloody drainage from Plurex 11/01/2024 12:51 PM EST - 11/01/2024 11:59 PM EST Hospital Encounter [facility] Infusion Center [address] [place] [phone] Elder Jacobs MD Primary adenocarcinoma of right lung (CMS/HCC V24, CMS/HCC V28) (Primary Dx); Pleural effusion, malignant ([facility] V28); Hypothyroidism (acquired) Discharge Disposition: Home or Self Care 10/26/2024 10:00 AM EST Office Visit [facility] Hematology Oncology [address] [place] [phone] Elder Jacobs MD Primary adenocarcinoma of right lung (CMS/HCC V24, CMS/HCC V28) (Primary Dx) from Last 3 Months Surgical History Surgery Date Site/Laterality Comments HYSTERECTOMY EYE SURGERY glaucoma Medical History Medical History Date Comments Hypertension IBS (irritable bowel syndrome) Asthma PONV (postoperative nausea and vomiting) HL (hearing loss) Blindness cataracts Dental disease full set Diabetes mellitus (CMS/HCC V24, CMS/HCC V28) diet controlled Bleeding internal hemorrhoids Joint pain History of transfusion Social History Tobacco Use Types Packs/Day Years Used Date Smoking Tobacco: Former Cigarettes Q uit: 07/14/2004 Passive Smoke Exposure: Past Smokeless Tobacco: Never Tobacco Cessation:Counseling Given: Not Answered Alcohol Use Standard Drinks/Week Comments Not Currently 0 (1 standard drink = 0.6 oz pur e alcohol) Food Risk Answer Date Recorded Within the past 12 months we worried whether our food would run out before we got money to buy more. Not asked 01/18/2025 Within the past 12 months th e food we bought just didn't last and we didn't have money to get more. Not asked 01/18/2025 Interpersonal Safety Answer Date Record ed Physical Abuse 01/12/2025 Verbal Abuse 01/12/2025 Comments Unknown Sex and Gender Information Value Date Recorded Sex Assigned at Female 07/14/2024 5:51 PM EST Legal Sex Female 1:49 PM EST Gender Identity Female 07/14/2024 5:51 PM EST Sexual Orientation Straight 08/17/2024 5: 58 AM EST Obstetrics History Last Filed Vital Signs Vital Sign Reading Time Taken Comments Blood Pressure 132/70 01/20/2025 3:08 PM EDT Pulse 80 01/20/2025 3:08 PM EDT Temperature 36.3 ??C (97.3 ??F) 01/20/2025 3:08 PM ED T Respiratory Rate 15 01/20/2025 3:08 PM EDT Oxygen Saturation 100% 01/20/2025 3:08 PM EDT Inhaled Oxygen Concentration - - Weight 71.9 kg (158 lb 9.6 oz) 01/12/2025 5:30 P M EDT Height 165.1 cm (5' 5 ) 01/12/2025 4:00 PM EDT Body Mass Index 26.39 01/12/2025 4:00 PM EDT Plan of Treatment Upcoming Encounters Date Type Department Care Team (Late st Contact Info) Description 02/08/2025 2:30 PM EDT Office Visit Pulmonology - [place] [facility] [address] [place] [phone] Yesenia Knight MD [address] [place], [place] [phone] 02/22/2025 4:00 PM EDT Office Visit Infectious Disease - [place] 175 [facility] [address] [place] [phone] Fabiola Wilson MD [address] [place] [address] [address] [place] [address] Health Maintenance Due Date Last Done Comments [...] 07/14/2024 Osteoporosis Screening (Bone Density Screening) 07/14/2024 Influenza Vaccine (Season Ended) 2025 05/17/2019, 11/12/2018, 04/24/2016, Additional history exists Social Influencers of Health Screening 01/18/2026 01/18/2025 Falls Risk Assessment 01/20/2026 01/20/2025 Hypertension/CHF/CAD Annual BMP Blood Test 01/20/2026 01/20/2025, 01/18/2025, 01/16/2025, Additional history exists HIB Vaccines Aged Out [...] Procedure Name Priority Date/Time Associated Diagnosis Comments ECG ANNOTATED 01/21/2025 CBC WITH AUTO DIFFERENTIAL Routine 01/20/2025 5:40 AM EDT BASIC METABOLIC PANEL Routine 01/20/2025 5:40 AM EDT CBC AND DIFFERENTIAL Routine 01/20/2025 5:40 AM EDT XR CHEST 1 VIEW Routine 01/19/2025 4:40 AM EDT INSERT PICC LINE Routine 01/18/2025 7:45 PM EDT POCT GLUCOSE BLOOD Routine 01/18/2025 3: [address] CHEST WO CONTRAST STAT 01/18/2025 11:36 AM EDT POCT GLUCOSE BLOOD Routine 01/18/2025 8: 27 AM EDT MAGNESIUM Routine 01/18/2025 6:44 AM EDT CBC WITH AUTO DIFFERENTIAL Routine 01/18/2025 6:44 AM EDT CBC AND DIFFERENTIAL Routine 01/18/2025 6:44 AM EDT BASIC METABOLIC PANEL Routine 01/18/2025 6:44 AM EDT XR CHEST 1 VIEW Routine 01/18/2025 5:36 AM EDT VANCOMYCIN, TROUGH Timed 01/17/2025 8: 07 PM EDT XR CHEST 1 VIEW Routine 01/17/2025 5:32 AM EDT XR CHEST 1 VIEW Routine 01/16/2025 11:47 AM EDT CBC WITH AUTO DIFFERENTIAL Routine 01/16/2025 6:09 AM EDT CBC AND DIFFERENTIAL Routine 01/16/2025 6:09 AM EDT BASIC METABOLIC PANEL Routine 01/16/2025 6:09 AM EDT MAGNESIUM Routine 01/16/2025 6:09 AM EDT PHOSPHORUS Routine 01/16/2025 6:09 AM EDT XR CHEST 1 VIEW Routine 01/16/2025 5:35 AM EDT VANCOMYCIN, TROUGH Timed 01/15/2025 7: 19 PM EDT POCT GLUCOSE BLOOD Routine 01/15/2025 7: 49 AM EDT XR CHEST 1 VIEW Routine 01/15/2025 5:40 AM EDT MRSA PCR Routine 01/14/2025 8:22 PM EDT POCT GLUCOSE BLOOD Routine 01/14/2025 7: 29 PM EDT VANCOMYCIN, TROUGH Timed 01/14/2025 7: 22 PM EDT POCT GLUCOSE BLOOD Routine 01/14/2025 4: 05 PM EDT ACTIVATED PARTIAL THROMBOPLASTIN TIME Routine 01/14/2025 1:20 PM EDT PROTHROMBIN TIME WITH INR Routine 01/14/2025 1:20 PM EDT XR CHEST 1 VIEW Routine 01/14/2025 1:00 PM EDT POCT GLUCOSE BLOOD Routine 01/14/2025 12 :10 PM EDT CULTURE BODY FLUID WITH GRAM STAIN STAT 01/14/2025 11:43 AM EDT CULTURE BODY FLUID WITH GRAM STAIN STAT 01/14/2025 11:41 AM EDT IR PLEURAL DRAIN INSERT CATH W IMAGE GUIDANCE RIGHT Routine 01/14/2025 11:40 AM EDT FOLATE Add-On 01/14/2025 7:55 AM EDT VITAMIN B12 Add-On 01/14/2025 7:55 AM EDT CBC WITH AUTO DIFFERENTIAL Routine 01/14/2025 7:55 AM EDT CBC AND DIFFERENTIAL Routine 01/14/2025 7:55 AM EDT BASIC METABOLIC PANEL Routine 01/14/2025 7:55 AM EDT MAGNESIUM Routine 01/14/2025 7:55 AM EDT PHOSPHORUS Routine 01/14/2025 7:55 AM EDT POCT GLUCOSE BLOOD Routine 01/14/2025 7: 41 AM EDT XR CHEST 1 VIEW Routine 01/14/2025 5:11 AM EDT POCT GLUCOSE BLOOD Routine 01/13/2025 7: 12 PM EDT POCT GLUCOSE BLOOD Routine 01/13/2025 3: 04 PM EDT POCT GLUCOSE BLOOD Routine 01/13/2025 11 :36 AM EDT POCT GLUCOSE BLOOD Routine 01/13/2025 8: 17 AM EDT CBC WITH AUTO DIFFERENTIAL Routine 01/13/2025 6:08 AM EDT CBC AND DIFFERENTIAL Routine 01/13/2025 6:08 AM EDT MAGNESIUM Routine 01/13/2025 6:08 AM EDT BASIC METABOLIC PANEL Routine 01/13/2025 6:08 AM EDT XR CHEST 1 VIEW Routine 01/13/2025 5:25 AM EDT POCT GLUCOSE BLOOD Routine 01/12/2025 7: [address] CHEST WO CONTRAST STAT 01/12/2025 6:25 PM EDT ECG 12-LEAD Routine 01/12/2025 5:18 PM EDT LACTATE Routine 01/12/2025 5:11 PM EDT ACTIVATED PARTIAL THROMBOPLASTIN TIME Routine 01/12/2025 5:11 PM EDT PROTHROMBIN TIME WITH INR Routine 01/12/2025 5:11 PM EDT CULTURE BLOOD STAT 01/12/2025 5:01 PM EDT CREATININE, SERUM Add-On 01/12/2025 4:5 5 PM EDT CBC WITH AUTO DIFFERENTIAL Routine 01/12/2025 4:55 PM EDT COMPREHENSIVE METABOLIC PANEL Routine 01/12/2025 4:55 PM EDT CBC AND DIFFERENTIAL Routine 01/12/2025 4:55 PM EDT CULTURE BLOOD STAT 01/12/2025 4:55 PM EDT CULTURE BODY FLUID WITH GRAM STAIN Routine 01/11/2025 4:41 PM EDT Malignant pleural effusion (CMS/HCC V28) TRANSFUSE RED BLOOD CELLS Routine 01/10/2025 1:38 PM EDT Primary adenocarcinoma of right lung (CMS/HCC V24, CMS/HCC V28) PREPARE RBC Routine 01/10/2025 1:00 PM EDT Primary adenocarcinoma of right lung (CMS/HCC V24, CMS/HCC V28) CBC WITH AUTO DIFFERENTIAL Routine 01/07/2025 2:39 PM EDT Primary adenocarcinoma of right lung (CMS/HCC V24, CMS/HCC V28) TYPE AND SCREEN Routine 01/07/2025 2:39 PM EDT Primary adenocarcinoma of right lung (CMS/HCC V24, CMS/HCC V28) CBC AND DIFFERENTIAL Routine 01/07/2025 2:39 PM EDT Primary adenocarcinoma of right lung (CMS/HCC V24, CMS/HCC V28) CBC WITH AUTO DIFFERENTIAL Routine 12/29/2024 12:49 [...] V28) from Last 3 Months Results * ECG-Annotated (01/21/2025) us Provider Onbase MD ECG ORDERABLES Final Result * (ABNORMAL) CBC auto differential (01/20/2025 5:40 AM EDT) Only the most recent of11 resultswithin the time period is included. WBC 5.4 4.8 - 10.8 K/mcL LAB HEMETOLOGY METHOD 01/20/2025 6:30 AM [facility] RBC 2.40(L) 3.80 - 4.80 M/mcL LAB HEMETOLOGY METHOD 01/20/2025 6:30 AM [facility] Hemoglobin 8.3(L) 11.5 - 16.0 g/dL LAB HEMETOLOGY METHOD 01/20/2025 6:30 AM [facility] Hematocrit 26.7(L) 35.0 - 47.0 % LAB HEMETOLOGY METHOD 01/20/2025 6:30 AM [facility] MCV 113.1(H) 79.0 - 98.0 FL LAB HEMETOLOGY METHOD 01/20/2025 6:30 AM [facility] MCH 35.2(H) 27.0 - 32.0 pcg LAB HEMETOLOGY METHOD 01/20/2025 6:30 AM [facility] MCHC 31.1(L) 32.0 - 37.0 g/dL LAB HEMETOLOGY METHOD 01/20/2025 6:30 AM [facility] RDW 16.6(H) 11.0 - 15.0 % LAB HEMETOLOGY METHOD 01/20/2025 6:30 AM [facility] Platelets 254 130 - 400 K/mcL LAB HEMETOLOGY METHOD 01/20/2025 6:30 AM [facility] MPV 10.4 7.0 - 11.0 FL LAB HEMETOLOGY METHOD 01/20/2025 6:30 AM [facility] NRBC 0.0 <1.0 % LAB HEMETOLOGY METHOD 01/20/2025 6:30 AM [facility] NRBC Absolute 0.00 <0.10 K/mcL LAB HEMETOLOGY METHOD 01/20/2025 6:30 AM [facility] Neutrophils Relative 69.9 % LAB HEMETOLOGY METHOD 01/20/2025 6:30 AM [facility] Lymphocytes Relative 15.5 % LAB HEMETOLOGY METHOD 01/20/2025 6:30 AM [facility] Monocytes Relative 10.9 % LAB HEMETOLOGY METHOD 01/20/2025 6:30 AM [facility] Eosinophils Relative 2.4 % LAB HEMETOLOGY METHOD 01/20/2025 6:30 AM [facility] Basophils Relative 0.7 % LAB HEMETOLOGY METHOD 01/20/2025 6:30 AM [facility] Immature Granulocytes Relative 0.6 % LAB HEMETOLOGY METHOD 01/20/2025 6:30 AM [facility] Neutrophils Absolute 3.80 1.50 - 7.00 K/mcL LAB HEMETOLOGY METHOD 01/20/2025 6:30 AM [facility] Lymphocytes Absolute 0.84(L) 1.00 - 5.00 K/mcL LAB HEMETOLOGY METHOD 01/20/2025 6:30 AM [facility] Monocytes Absolute 0.59 0.20 - 1.00 K/mcL LAB HEMETOLOGY METHOD 01/20/2025 6:30 AM [facility] Eosinophils Absolute 0.13 0.00 - 0.50 K/mcL LAB HEMETOLOGY METHOD 01/20/2025 6:30 AM [facility] Basophils Absolute 0.04 0.00 - 0.20 K/mcL LAB HEMETOLOGY METHOD 01/20/2025 6:30 AM [facility] Immature Granulocytes Absolute 0.03 0.00 - 0.03 K/mcL LAB HEMETOLOGY METHOD 01/20/2025 6:30 AM [facility] Blood Venous blood specimen / Unknown Venipuncture / Unknown 01/20/2025 5:40 AM EDT 01/20/2025 6:10 AM EDT us Oumar Winters MD LAB BLOOD ORDERABLES Final Re sult [facility] [address] [place] [address], [place] [phone] * (ABNORMAL) Basic metabolic panel (01/20/2025 5:40 AM EDT) Only the most recent of5 resultswithin the time period is included. Sodium 143 133 - 145 mmol/L LAB CHEMISTRY METHOD 01/20/2025 7:04 AM [facility] Potassium 3.5 3.5 - 5.5 mmol/L LAB CHEMISTRY METHOD 01/20/2025 7:04 AM [facility] Chloride 109 96 - 110 mmol/L LAB CHEMISTRY METHOD 01/20/2025 7:04 AM [facility] CO2 28 21 - 32 mmol/L LAB CHEMISTRY METHOD 01/20/2025 7:04 AM [facility] Anion Gap 6 3 - 11 LAB CHEMISTRY METHOD 01/20/2025 7:04 AM [facility] Glucose 109(H) 70 - 100 mg/dL LAB CHEMISTRY METHOD 01/20/2025 7:04 AM [facility] BUN 9 5 - 25 mg/dL LAB CHEMISTRY METHOD 01/20/2025 7:04 AM [facility] Creatinine 0.81 0.50 - 1.10 mg/dL LAB CHEMISTRY METHOD 01/20/2025 7:04 AM [facility] eGFR 73 >=60 mL/min/1. 73m2 LAB CHEMISTRY METHOD 01/20/2025 7:04 AM [facility] Comment:Calculation based on the Chronic Kidney Disease Epidemiology Collaboration (CKD-EPI) equation refit without adjustment for race. BUN/Creatinine Ratio 11.1 LAB CHEMISTRY METHOD 01/20/2025 7:04 AM EDT [facility] Calcium 8.2(L) 8.5 - 10.5 mg/dL LAB CHEMISTRY METHOD 01/20/2025 7:04 AM EDT [facility] Blood Venous blood specimen / Unknown Venipuncture / Unknown 01/20/2025 5:40 AM EDT 01/20/2025 6:10 AM EDT us Oumar Winters MD LAB BLOOD ORDERABLES Final Re sult [facility] [address] [place] [address], [place] [phone] * XR Chest 1 View (01/19/2025 4:40 AM EDT) Only the most recent of9 resultswithin the time period is included. Anatomical Region Laterality Modality Body Radiographic Maliha ging 01/19/2025 8:56 AM EDT Impressions 01/19/2025 9:01 AM EDT Well-positioned right-sided PICC line. Stable position of right basilar pigtail chest tube catheter with adjacent infiltrate. -------- FINAL REPORT -------- Dictated By: James Delacruz Dictated Date: 01/19/2025 08:56 ET Assigned Physician: James Delacruz Reviewed and Electronically Signed By: James Delacruz Signed Date: 01/19/2025 09:01 ET Workstation ID: [id number] Transcribed By: Self Edit Transcribed Date: 01/19/2025 08:56 ET Narrative 01/19/2025 9:01 AM EDT INDICATION: Right-sided pleural effusion FINDINGS: Single portable AP view of the chest obtained. Compared to multiple prior studies most recent from January 18, 2025. Bibasilar airspace disease, unchanged. Similar position of pigtail within the right lung base. No large residual pleural effusion noted. Right apical pleural thickening. Heart enlarged but unchanged. Bony structures are grossly intact and normal for the patient's age. Interval placement right-sided PICC line with tip within the distal SVC. Procedure Note James Delacruz MD - 01/19/2025 INDICATION: Right-sided pleural effusion FINDINGS: Single portable AP view of the chest obtained. Compared tomultiple prior studies most recent from January 18, 2025. Bibasilar airspace disease, unchanged. Similar position of pigtail withinthe right lung base. No large residual pleural effusion noted. Rightapical pleural thickening. Heart enlarged but unchanged. Bony structures are grossly intact and normal for the patient's age. Interval placement right-sided PICC line with tip within the distal SVC. IMPRESSION: Well-positioned right-sided PICC line. Stable position of right basilar pigtail chest tube catheter with adjacentinfiltrate. -------- FINAL REPORT -------- Dictated By: James Delacruz Dictated Date: 01/19/2025 08:56 ET Assigned Physician: James Delacruz Reviewed and Electronically Signed By: James Delacruz Signed Date: 01/19/2025 09:01 ET Workstation ID: [id number] Transcribed By: Self Edit Transcribed Date: 01/19/2025 08:56 ET us Melissa Lopez SIEBEL ADMINISTRATOR IMG XR PROCEDURES Final Res ult * Insert PICC line (01/18/2025 7:45 PM EDT) Narrative Laya Orosco RN - 01/18/2025 7:45 PM EDT Laya Orosco RN ? 01/18/2025 ??7:48 PM PICC Line Insertion Procedure Note Procedure: Insertion of 4F single lumen Bard PowerPICC Lot: [id number] Exp: 2025-10-01 Indications: ??Provider's order for Vancomycin on discharge Procedure Details: Informed consent was obtained for the procedure. Risks of thrombus and infection were discussed. Pre-procedure checklist completed at bedside. Maximum sterile technique was used including antiseptics, cap, gloves, gown, hand hygiene, mask, and sheet. US guidance utilized, vein easily accessed and catheter advanced smoothly upon first attempt. Two wires intact and discarded. 1% Lidocaine 2 ml sc administered. 4F PICC inserted to the Right Basil vein per hospital protocol. Flushes smoothly with good blood return. Findings: Catheter cut at 40 cm and inserted to 40 cm with 0 cm exposed. Mid upper arm circumference is 29 cm. ??There were no changes to vital signs. Catheter was flushed with 10 cc NS and sterile CVC dressing with Biopatch applied. Patient did tolerate procedure well. Recommendations: 3CG confirmation obtained: ??Tip at cavoatrial junction/May use line PICC Brochure given to patient with teaching instruction. us Oumar Winters MD IV THERAPY ORDERABLES Final R esult * (ABNORMAL) POCT Glucose, blood (01/18/2025 3:08 PM EDT) Only the most recent of12 resultswithin the time period is included. [facility] Signature Glucose POCT 152(H) 70 - 100 mg/dL 01/18/2025 3:08 PM EDT [facility] Blood Capillary blood specimen / Unknown 01/18/2025 3:08 PM EDT 01/18/2025 3:09 PM EDT us Oumar Winters MD LAB POINT OF CARE TE ST DOCKED DEVICE UNSOLICITED RESULTS Final Result [facility] [address] [place] [address], [place] [phone] * CT Chest wo Contrast (01/18/2025 11:36 AM EDT) Only the most recent of2 resultswithin the time period is included. Anatomical Region Laterality Modality Body Computed Tomogra phy 01/18/2025 12:1 9 PM EDT Impressions 01/18/2025 12:37 PM EDT Interval removal of anterior pleural drainage catheter and placement of posterior pleural drainage catheter. ??Decreased loculated right hydropneumothorax with decreased fluid component and increased air component. ??Multifocal atelectasis/scarring in the adjacent right lung. Unchanged spiculated opacity in the right lower lobe abutting the fissure and extending towards the hilum. ??Unchanged multifocal right pleural thickening and nodularity. ??Findings are likely related to the history of lung cancer and metastatic disease. ??Neoplastic evaluation is better on prior PET/CT. Sclerotic foci within multiple thoracic vertebral bodies suspicious for metastatic disease -------- FINAL REPORT -------- Dictated By: HAO CHA Dictated Date: 01/18/2025 12:19 ET Assigned Physician: HAO CHA Reviewed and Electronically Signed By: HAO CHA Signed Date: 01/18/2025 12:37 ET Workstation ID: [id number] Transcribed By: Self Edit Transcribed Date: 01/18/2025 12:19 ET Narrative 01/18/2025 12:37 PM EDT PROCEDURE: Chest CT INDICATION: Loculated pleural effusion TECHNIQUE: Chest CT without contrast. Multi planar reformats were created and interpreted. The examination was performed utilizing dose reduction techniques. ??Total DLP 512 COMPARISON: ??01/12/2025 and PET/CT/ FINDINGS: LUNGS/PLEURA: Central airways are patent. ??Interval removal of right anterior chest tube with placement of a right posterior chest tube. ??Decreased right hydropneumothorax with decreased fluid component and increased air component. ??Spiculated opacity in the right lower lobe along the fissure is similar compared to prior measuring 4.5 x 2.7 cm. ??Septal thickening throughout the right lung has decreased. ??Differential pleural thickening and nodularity on the right is unchanged. ??Small left pleural effusion is increased compared to prior. MEDIASTINUM: Thyroid gland is unchanged. ??Prominent mediastinal and right hilar lymph nodes are similar compared to prior and may be reactive. ??Esophagus is within normal limits. ??Cardiac chambers are normal in size. ??Small pericardial effusion. ??Mild coronary artery calcifications. ??Thoracic aorta is normal in size CHEST WALL: No axillary lymphadenopathy or superficial hematoma. UPPER ABDOMEN:Punctate nonobstructive left renal calculus. ??Left renal cyst. BONES: Multiple sclerotic foci throughout the bones are stable compared to prior. ??For example within the T3 vertebral body and T8 vertebral body Procedure Note Hao Cha MD - 01/18/2025 PROCEDURE: Chest CT INDICATION: Loculated pleural effusion TECHNIQUE: Chest CT without contrast. Multi planar reformats were createdand interpreted. The examination was performed utilizing dose reductiontechniques. Total DLP 512 COMPARISON: 01/12/2025 and PET/CT/ FINDINGS: LUNGS/PLEURA: Central airways are patent. Interval removal of rightanterior chest tube with placement of a right posterior chest tube.Decreased right hydropneumothorax with decreased fluid component andincreased air component. Spiculated opacity in the right lower lobe alongthe fissure is similar compared to prior measuring 4.5 x 2.7 cm. Septalthickening throughout the right lung has decreased. Differential pleuralthickening and nodularity on the right is unchanged. Small left pleuraleffusion is increased compared to prior. MEDIASTINUM: Thyroid gland is unchanged. Prominent mediastinal and righthilar lymph nodes are similar compared to prior and may be reactive.Esophagus is within normal limits. Cardiac chambers are normal in size.Small pericardial effusion. Mild coronary artery calcifications.Thoracic aorta is normal in size CHEST WALL: No axillary lymphadenopathy or superficial hematoma. UPPER ABDOMEN:Punctate nonobstructive left renal calculus. Left renalcyst. BONES: Multiple sclerotic foci throughout the bones are stable compared toprior. For example within the T3 vertebral body and T8 vertebral body IMPRESSION: Interval removal of anterior pleural drainage catheter and placement ofposterior pleural drainage catheter. Decreased loculated righthydropneumothorax with decreased fluid component and increased aircomponent. Multifocal atelectasis/scarring in the adjacent right lung. Unchanged spiculated opacity in the right lower lobe abutting the fissureand extending towards the hilum. Unchanged multifocal right pleuralthickening and nodularity. Findings are likely related to the history oflung cancer and metastatic disease. Neoplastic evaluation is better onprior PET/CT. Sclerotic foci within multiple thoracic vertebral bodies suspicious formetastatic disease -------- FINAL REPORT -------- Dictated By: HAO CHA Dictated Date: 01/18/2025 12:19 ET Assigned Physician: HAO CHA Reviewed and Electronically Signed By: HAO CHA Signed Date: 01/18/2025 12:37 ET Workstation ID: [id number] Transcribed By: Self Edit Transcribed Date: 01/18/2025 12:19 ET Natalie TAVERAS IMG CT PROCEDURES Final Resul t * Magnesium (01/18/2025 6:44 AM EDT) Only the most recent of4 resultswithin the time period is included. Pathologist [facility] Magnesium 2.1 1.9 - 2.6 mg/dL LAB CHEMISTRY METHOD 01/18/2025 7:36 AM EDT [facility] Blood Venous blood specimen / Unknown Venipuncture / Unknown 01/18/2025 6:44 AM EDT 01/18/2025 6:55 AM EDT Oumar Winters MD LAB BLOOD ORDERABLES Final Re sult Performing Organization Address City/[facility]/ZIP Co de Phone Number [facility] [address] [place] [address], * Vancomycin, trough Please draw before 2100 dose (01/17/2025 8:07 PM EDT) Only the most recent of3 resultswithin the time period is included. [facility] Vancomycin Trough 14.8 10.0 - 20.0 mcg/mL LAB CHEMISTRY METHOD 01/17/2025 9:15 PM EDT [facility] Blood Venous blood specimen / Unknown Venipuncture / Unknown 01/17/2025 8:07 PM EDT 01/17/2025 8:48 PM EDT Kezia TAVERAS LAB BLOOD ORDERABLES Final Re sult [facility] [address] [place] [address], * Phosphorus (01/16/2025 6:09 AM EDT) Only the most recent of2 resultswithin the time period is included. Phosphorus 3.1 2.5 - 4.5 mg/dL LAB CHEMISTRY METHOD 01/16/2025 7:30 AM EDT [facility] Blood Venous blood specimen / Unknown Venipuncture / Unknown 01/16/2025 6:09 AM EDT 01/16/2025 6:49 AM EDT Marcus Braun MD LAB BLOOD ORDERABLES Fi nal Result Performing Organization Address City/[facility]/ZIP Co de Phone Number [facility] [address] [place] [address], [place] [phone] * MRSA molecular study (01/14/2025 8:22 PM EDT) [facility] MRSA Screen PCR Not Detected Not Detected LAB MICROBIOLOGY METHOD 01/14/2025 9:43 PM EDT [facility] Swab Both anterior nares / Unknown 01/14/2025 8:22 PM EDT 01/14/2025 8:22 PM EDT Fabiola Wilson MD LAB MICROBIOLOGY - GENERAL ORDER SINDHU Final Result Performing Organization Address [facility] Co de Phone Number [facility] [address] [place] [address], [place] [phone] * Activated partial thromboplastin time (01/14/2025 1:20 PM EDT) Only the most recent of2 resultswithin the time period is included. [facility] aPTT 32.4 24.1 - 39.3 sec LAB COAGULATION METHOD 01/14/2025 1:47 PM EDT [facility] Blood Venous blood specimen / Unknown Venipuncture / Unknown 01/14/2025 1:20 PM EDT 01/14/2025 1:26 PM EDT Melissa Lopez NP LAB BLOOD ORDERABLES Final Result Performing Organization Address City/[facility]/ZIP Co de Phone Number [facility] [address] [place] [address], [place] [phone] * Prothrombin time with INR (01/14/2025 1:20 PM EDT) Only the most recent of2 resultswithin the time period is included. [facility] Protime 13.4 10.6 - 13.9 sec LAB COAGULATION METHOD 01/14/2025 1:47 PM EDT [facility] INR 1.1 LAB COAGULATION METHOD 01/14/2025 1:47 PM EDT [facility] Blood Venous blood specimen / Unknown Venipuncture / Unknown 01/14/2025 1:20 PM EDT 01/14/2025 1:26 PM EDT Melissa Lopez [employer]IEBEL ADMINISTRATOR LAB BLOOD ORDERABLES Final Result [facility] [address] [place] [address], * (ABNORMAL) Culture body fluid with gram stain (01/14/2025 11:43 AM EDT) Only the most recent of3 resultswithin the time period is included. [facility] Fluid Culture Very Light Growth Corynebacterium species(A) RAYMOND 01/19/2025 9:36 AM EDT [facility] Comment: The organism value for this result has been updated. These results have been appended to the previously preliminary verified report. Fluid Culture Very Light Growth Staphylococcus hominis ssp hominis(A) RAYMOND 01/19/2025 9:36 AM EDT [facility] Comment: The organism value for this result has been updated. These results have been appended to the previously preliminary verified report. Edited result: Previously reported as Gram Positive Cocci on 01/18/2025 at 0951 EDT. Gram Stain Result Many Polymorphonuclear leukocytes 01/19/2025 9:36 AM EDT [facility] Gram Stain Result No epithelial cells seen 01/19/2025 9:36 AM EDT [facility] Gram Stain Result No organisms seen 01/19/2025 9:36 AM EDT [facility] Pleural Fluid Structure of right pleural cavity / Unknown Non-blood Collection / Unknown 01/14/2025 11:43 AM EDT 01/14/2025 1:04 PM EDT Narrative Organism Antibiotic Method Susceptibility Staphylococcus hominis ssp hominis Benzylpenicillin RAYMOND >=0.5 ug/ml: Resistant Staphylococcus hominis ssp hominis Oxacillin RAYMOND <=0.25 ug/ml: Susceptible Staphylococcus hominis ssp hominis Gentamicin RAYMOND <=0.5 ug/ml: Susceptible Staphylococcus hominis ssp hominis Ciprofloxacin RAYMOND <=0.5 ug/ml: Susceptible Staphylococcus hominis ssp hominis Levofloxacin RAYMOND <=0.12 ug/ml: Susceptible Staphylococcus hominis ssp hominis Erythromycin RAYMOND <=0.25 ug/ml: Susceptible Staphylococcus hominis ssp hominis Clindamycin RAYMOND <=0.25 ug/ml: Susceptible Staphylococcus hominis ssp hominis Vancomycin RAYMOND 1 ug/ml: Susceptible Staphylococcus hominis ssp hominis Tetracycline RAYMOND <=1 ug/ml: Susceptible Staphylococcus hominis ssp hominis Rifampin RAYMOND <=0.5 ug/ml: Susceptible James Delacruz MD LAB MICROBIOLOGY - GENERAL SOSA PEREZ Final Result [facility] [address] [place] [address], * IR Pleural Drain Insert Cath w Image Guidance Right (01/14/2025 11:40 AM EDT) Anatomical Region Laterality Modality Right Interventional R adiology 01/14/2025 3:33 PM EDT Impressions 01/14/2025 3:40 PM EDT Removal of right-sided Pleurx catheter. Placement of 14 [place] pigtail catheter into complex effusion within the right lung base. CT-guided thoracentesis of posterior right upper lobe pleural fluid collection with removal of 100 mL of orange pleural fluid. Samples from both collections sent for microbiological evaluation. -------- FINAL REPORT -------- Dictated By: James Delacruz Dictated Date: 01/14/2025 15:33 ET Assigned Physician: James Delacruz Reviewed and Electronically Signed By: James Delacruz Signed Date: 01/14/2025 15:40 ET Workstation ID: [id number] Transcribed By: Self Edit Transcribed Date: 01/14/2025 15:33 ET Narrative 01/14/2025 3:40 PM EDT INDICATION: Empyema PROCEDURE: Right-sided pleural catheter removal, CT-guided chest tube placement under moderate sedation, CT-guided right-sided thoracentesis with possible 2nd chest tube within upper lobe collection prior relevant studies: CT scan of the chest from January 12, 2025 MEDICATIONS: Local anesthesia: 20 cc of 1% buffered lidocaine administered subcutaneously. Sedation: Moderate intravenous sedation was initiated and maintained for 60 minutes while the patient was independently monitored by the radiology nurse under the supervision of the interventional radiologist. A total of 1.5 mg of Versed and 75 mcg of fentanyl administered during the procedure. Scanner: MycooN [address] Dose reduction technique: AEC (automated exposure control) Dose: total exam DLP 886 mGY per cm ? TECHNIQUE/FINDINGS: Informed consent obtained. Patient placed supine on the CT gantry and multiple axial images obtained of the chest. Appropriate areas of the skin was marked and draped and prepped sterilely. Timeout performed. Moderate sedation initiated. Right chest wall tunneled Pleurx catheter removal: Local anesthetic infiltrated along the catheter exit site. Blunt dissection of comfortable of the catheter in its entirety. Bandage applied. CT-guided chest tube placement: Local anesthetic administered. 18-gauge open- ended needle advanced into the pleural fluid within the right lung base. Tract dilated up to 16 [place] and placement of a 14 [place] pigtail catheter. Once placement confirmed catheter was attached to a Pleur-evac system and a sterile dressing applied. 20 mL syringe of hemorrhagic pleural fluid debris sent for microbiological evaluation. CT-guided thoracentesis of right upper lobe pleural collection: Local anesthetic administered. 18-gauge open-ended needle advanced into the smaller pleural fluid collection noted posteriorly along the upper lobe. Small amount of thin orange fluid aspirated. Due to small size and thin fluid decision made to perform aspiration without placement of chest tube. Needle attached to a vacuum bottle. Approximately 100 mL of pleural fluid removed with 20 mL sample sent for microbiological evaluation. Imaging after the procedure demonstrate removal of the Pleurx catheter, placement of pigtail catheter into right lung base collection as well as significant reduction in size of small posterior right upper lobe pleural fluid collection. Procedure Note James Delacruz MD - 01/14/2025 INDICATION: Empyema PROCEDURE: Right-sided pleural catheter removal, CT-guided chest tubeplacement under moderate sedation, CT-guided right-sided thoracentesiswith possible 2nd chest tube within upper lobe collection prior relevant studies: CT scan of the chest from January 12, 2025 MEDICATIONS: Local anesthesia: 20 cc of 1% buffered lidocaine administeredsubcutaneously. Sedation: Moderate intravenous sedation was initiated and maintained for60 minutes while the patient was independently monitored by the radiologynurse under the supervision of the interventional radiologist. A total of1.5 mg of Versed and 75 mcg of fentanyl administered during theprocedure. Scanner: MycooN [address] Dose reduction technique: AEC (automated exposure control) Dose: total exam DLP 886 mGY per cm TECHNIQUE/FINDINGS: Informed consent obtained. Patient placed supine onthe CT gantry and multiple axial images obtained of the chest. Appropriateareas of the skin was marked and draped and prepped sterilely. Timeoutperformed. Moderate sedation initiated. Right chest wall tunneled Pleurx catheter removal: Local anestheticinfiltrated along the catheter exit site. Blunt dissection of comfortableof the catheter in its entirety. Bandage applied. CT-guided chest tube placement: Local anesthetic administered. 67-rnbdssula-yilnv needle advanced into the pleural fluid within the right lungbase. Tract dilated up to 16 [place]er and placement of a 14 [place] pigtailcatheter. Once placement confirmed catheter was attached to a Pleur-evacsystem and a sterile dressing applied. 20 mL syringe of hemorrhagicpleural fluid debris sent for microbiological evaluation. CT-guided thoracentesis of right upper lobe pleural collection: Localanesthetic administered. 18-gauge open-ended needle advanced into thesmaller pleural fluid collection noted posteriorly along the upper lobe.Small amount of thin orange fluid aspirated. Due to small size and thinfluid decision made to perform aspiration without placement of chest tube.Needle attached to a vacuum bottle. Approximately 100 mL of pleural fluidremoved with 20 mL sample sent for microbiological evaluation. Imaging after the procedure demonstrate removal of the Pleurx catheter,placement of pigtail catheter into right lung base collection as well assignificant reduction in size of small posterior right upper lobe pleuralfluid collection. IMPRESSION: Removal of right-sided Pleurx catheter. Placement of 14 [place] pigtail catheter into complex effusion within theright lung base. CT-guided thoracentesis of posterior right upper lobe pleural fluidcollection with removal of 100 mL of orange pleural fluid. Samples from both collections sent for microbiological evaluation. -------- FINAL REPORT -------- Dictated By: James Delacruz Dictated Date: 01/14/2025 15:33 ET Assigned Physician: James Delacruz Reviewed and Electronically Signed By: James Delacruz Signed Date: 01/14/2025 15:40 ET Workstation ID: [id number] Transcribed By: Self Edit Transcribed Date: 01/14/2025 15:33 ET Katharine TAVERAS IMG IR PROCEDURES Final Result * (ABNORMAL) Folate (01/14/2025 7:55 AM EDT) [facility] Folate 19.7(H) 2.8 - 17.0 ng/ml LAB CHEMISTRY METHOD 01/14/2025 3:35 PM EDT [facility] Blood Venous blood specimen / Unknown Venipuncture / Unknown 01/14/2025 7:55 AM EDT 01/14/2025 8:15 AM EDT Marcus Braun MD LAB BLOOD ORDERABLES Fi nal Result [facility] [address] [place] [address], * Vitamin B12 (01/14/2025 7:55 AM EDT) Pathologist [facility] Vitamin B-12 523 250 - 900 pcg/mL LAB CHEMISTRY METHOD 01/14/2025 3:35 PM EDT [facility] Blood Venous blood specimen / Unknown Venipuncture / Unknown 01/14/2025 7:55 AM EDT 01/14/2025 8:15 AM EDT Marcus Braun MD LAB BLOOD ORDERABLES Fi nal Result Performing Organization Address City/[facility]/ZIP Co de Phone Number [facility] [address] [place] [address], * ECG 12 lead (01/12/2025 5:18 PM EDT) Ventricular Rate ECG 78 BPM GEMUSE Atrial Rate 78 BPM GEMUSE P-R Interval 218 ms GEMUSE QRS Duration 142 ms GEMUSE Q-T Interval 414 ms GEMUSE QTc 471 ms GEMUSE P Wave [place] 47 degrees GEMUSE R [place] -6 degrees GEMUSE T [place] 22 degrees GEMUSE ECG Interpretation Sinus rhythm with 1st degree A-V block Right bundle branch block Abnormal ECG When compared with ECG of 14-JUL-2024 14:49, AL interval has increased QRS duration has increased Confirmed by MARTINE SPENCER ([id number]) on 01/13/2025 11:16:24 AM GEMUSE 01/12/2025 5:18 PM EDT 01/13/2025 11:16 AM EDT Kezia TAVERAS ECG ORDERABLES Final Result Performing Organization Address City/[facility] Co de Phone Number GEMUSE * Lactate (01/12/2025 5:11 PM EDT) Lactate 1.2 0.4 - 2.0 mmol/L LAB CHEMISTRY METHOD 01/12/2025 5:52 PM EDT [facility] Blood Venous blood specimen / Unknown Venipuncture / Unknown 01/12/2025 5:11 PM EDT 01/12/2025 5:17 PM EDT Kezia TAVERAS LAB BLOOD ORDERABLES Final Re sult Performing Organization Address [facility]/ZIP Co de Phone Number [facility] [address] [place] [address], [place] [phone] * Culture blood (01/12/2025 5:01 PM EDT) Only the most recent of2 resultswithin the time period is included. Culture, Blood No growth at 5 days 01/17/2025 6:01 PM EDT [facility] Blood Venous blood specimen / Unknown Venipuncture / Unknown 01/12/2025 5:01 PM EDT 01/12/2025 5:23 PM EDT Kezia TAVERAS LAB MICROBIOLOGY - GENERAL OR DERABLES Final Result Performing Organization Address [facility] Co de Phone Number [facility] [address] [place] [address], [place] [phone] * Creatinine serum (01/12/2025 4:55 PM EDT) Creatinine 0.92 0.50 - 1.10 mg/dL LAB CHEMISTRY METHOD 01/12/2025 5:53 PM EDT [facility] eGFR 62 >=60 mL/min/1. 73m2 LAB CHEMISTRY METHOD 01/12/2025 5:53 PM EDT [facility] Comment:Calculation based on the Chronic Kidney Disease Epidemiology Collaboration (CKD-EPI) equation refit without adjustment for race. Blood Venous blood specimen / Unknown Venipuncture / Unknown 01/12/2025 4:55 PM EDT 01/12/2025 5:17 PM EDT Kezia TAVERAS LAB BLOOD ORDERABLES Final Re sult Performing Organization Address [facility]/ZIP Co de Phone Number [facility] [address] [place] [address], [place] [phone] * (ABNORMAL) Comprehensive metabolic panel (01/12/2025 4:55 PM EDT) Only the most recent of5 resultswithin the time period is included. Sodium 139 133 - 145 mmol/L LAB CHEMISTRY METHOD 01/12/2025 5:55 PM [facility] Potassium 3.5 3.5 - 5.5 mmol/L LAB CHEMISTRY METHOD 01/12/2025 5:55 PM [facility] Chloride 104 96 - 110 mmol/L LAB CHEMISTRY METHOD 01/12/2025 5:55 PM [facility] CO2 26 21 - 32 mmol/L LAB CHEMISTRY METHOD 01/12/2025 5:55 PM [facility] Anion Gap 9 3 - 11 LAB CHEMISTRY METHOD 01/12/2025 5:55 PM [facility] Glucose 142(H) 70 - 100 mg/dL LAB CHEMISTRY METHOD 01/12/2025 5:55 PM [facility] BUN 11 5 - 25 mg/dL LAB CHEMISTRY METHOD 01/12/2025 5:55 PM [facility] Creatinine 0.92 0.50 - 1.10 mg/dL LAB CHEMISTRY METHOD 01/12/2025 5:55 PM [facility] eGFR 62 >=60 mL/min/1. 73m2 LAB CHEMISTRY METHOD 01/12/2025 5:55 PM [facility] Comment:Calculation based on the Chronic Kidney Disease Epidemiology Collaboration (CKD-EPI) equation refit without adjustment for race. BUN/Creatinine Ratio 12.0 LAB CHEMISTRY METHOD 01/12/2025 5:55 PM [facility] Calcium 8.5 8.5 - 10.5 mg/dL LAB CHEMISTRY METHOD 01/12/2025 5:55 PM [facility] AST (SGOT) 16 10 - 42 unit/L LAB CHEMISTRY METHOD 01/12/2025 5:55 PM EDT [facility] ALT (SGPT) 12 10 - 60 unit/L LAB CHEMISTRY METHOD 01/12/2025 5:55 PM EDT [facility] Alkaline Phosphatase 72 42 - 121 unit/L LAB CHEMISTRY METHOD 01/12/2025 5:55 PM EDT [facility] Total Protein 5.7(L) 6.0 - 8.0 g/dL LAB CHEMISTRY METHOD 01/12/2025 5:55 PM EDT [facility] Albumin 2.0(L) 3.2 - 5.0 g/dL LAB CHEMISTRY METHOD 01/12/2025 5:55 PM EDT [facility] Total Bilirubin 0.8 0.0 - 1.4 mg/dL LAB CHEMISTRY METHOD 01/12/2025 5:55 PM EDT [facility] Blood Venous blood specimen / Unknown Venipuncture / Unknown 01/12/2025 4:55 PM EDT 01/12/2025 5:17 PM EDT us Kezia TAVERAS LAB BLOOD ORDERABLES Final Re sult [facility] [address] [place] [address], * Transfuse RBC (01/10/2025 3:53 PM EDT) us Elder Jacobs MD BLOOD TRANSFUSION ORDERABLE S Final Result * Prepare RBC: 1 Units (01/10/2025 1:00 PM EDT) Product Code [id number] 01/10/2025 1:37 PM EDT [facility] Unit Number [id number] 01/11/20 1:37 PM EDT [facility] Crossmatch Compatible 01/10/2025 1:11 PM EDT [facility] Dispense Status Transfused 01/10/2025 1:37 PM EDT [facility] Unit ABO Rh OPOS 01/10/2025 1:37 PM EDT [facility] Unit Expiration Date Time [id number] 01/10/2025 1:37 PM EDT [facility] Unit Blood Type 5100 01/10/2025 1:37 PM EDT [facility] Blood Venous blood specimen / Unknown 01/10/2025 1:00 PM EDT 01/07/2025 4:30 PM EDT us Elder Jacobs MD BLOOD BANK PRODUCT ORDERABL ES Final Result Performing Organization Address [facility] Co de Phone Number [facility] [address] [place] [address], [place] [phone] * Type and screen (01/07/2025 2:39 PM EDT) ABO Group O 01/07/2025 6:21 PM EDT [facility] Rh Type Positive 01/07/2025 6:21 PM EDT [facility] Antibody Screen Negative 01/07/2025 6:21 PM EDT [facility] Blood Venous blood specimen / Unknown Venipuncture / Unknown 01/07/2025 2:39 PM EDT 01/07/2025 4:30 PM EDT us Elder Jacobs MD LAB BLOOD BANK TEST ORDERAB LES Final Result [facility] [address] [place] [address], [place] [phone] * Thyroid stimulating hormone (12/29/2024 12:49 PM EDT) Only the most recent of4 resultswithin the time period is included. TSH 3.78 0.40 - 4.00 mcIU/mL LAB CHEMISTRY METHOD 12/29/2024 5:57 PM EDT [facility] Blood Venous blood specimen / Unknown Venipuncture / Unknown 12/29/2024 12:49 PM EDT 12/29/2024 4:36 PM EDT us Elder Jacobs MD LAB BLOOD ORDERABLES Final Result [facility] [address] [place] [address], [place] [phone] * PET CT Skull to Mid Thigh [...] Signed Date: 12/29/2024 13:49 ET Workstation ID: [id number] Transcribed By: Self Edit Transcribed Date: 12/29/2024 [...] Signed Date: 12/29/2024 13:49 ET Workstation ID: [id number] Transcribed By: Self Edit Transcribed Date: 12/29/2024 13:25 ET us Elder Jacobs MD IMG NM PROCEDURES Final Res ult * Cell count with reflex differential, body fluid (12/21/2024 1:47 PM EDT) Only the most recent of2 resultswithin the time period is included. Body Fluid Total Nucleated Cells 2,233 /mm3 LAB HEMETOLOGY METHOD 12/21/2024 3:18 PM EDT [facility] Body Fluid RBC 85,000 /mm3 LAB HEMETOLOGY METHOD 12/21/2024 3:18 PM EDT [facility] Body Fluid Color Red 12/21/2024 3:18 PM EDT [facility] Body Fluid Clarity Bloody 12/21/2024 3:18 PM EDT [facility] Body Fluid Source Pleural 12/21/2024 3:18 PM EDT [facility] Pleural Fluid Structure of right pleural cavity / Unknown Non-blood Collection / Unknown 12/21/2024 1:47 PM EDT 12/21/2024 2:00 PM EDT Narrative [facility] - 12/21/2024 3:18 PM EDT No reference ranges have been established for body fluids. Clinical correlation recommended. us Yesenia Knight MD LAB BODY FLUIDS AND STOOLS ORDERABLES Final Result [facility] [address] [place] [address], [place] [phone] * Differential body fluid (12/21/2024 1:47 PM EDT) Only the most recent of2 resultswithin the time period is included. Fluid Neutrophils % 8 % 12/21/2024 3:37 PM EDT [facility] Fluid Lymphocytes % 91 % 12/21/2024 3:37 PM EDT [facility] Fluid Monocytes/Macrop hages 1 % 12/21/2024 3:37 PM EDT [facility] Fluid Eosinophils % 0 % 12/21/2024 3:37 PM EDT [facility] Fluid Basophils % 0 % 12/21/2024 3:37 PM EDT [facility] Fluid Other Cells % 0 % 12/21/2024 3:37 PM EDT [facility] Pleural Fluid Structure of right pleural cavity / Unknown Non-blood Collection / Unknown 12/21/2024 1:47 PM EDT 12/21/2024 2:00 PM EDT Narrative [facility] - 12/21/2024 3:37 PM EDT No reference ranges have been established for body fluids. Clinical correlation recommended. Yesenia Knight MD LAB BODY FLUIDS AND STOOLS ORDERABLES Final Result [facility] [address] [place] [address], * Pathology review, body fluid (12/21/2024 1:47 [...] text on 12/21/2024. 12/21/2024 5:19 PM EDT [facility] Pleural Fluid Structure of right pleural cavity / Unknown Non-blood Collection / Unknown 12/21/2024 1:47 PM EDT 12/21/2024 2:00 PM EDT Yesenia Knight MD LAB BODY FLUIDS AND STOOLS ORDERABLES Final Result Performing Organization Address [facility] Co de Phone Number [facility] [address] [place] [address], [place] [phone] * Protein, body fluid (12/21/2024 1:47 PM EDT) Only the most recent of2 resultswithin the time period is included. Protein, Fluid 3.6 See Comment g/dL LAB CHEMISTRY METHOD 12/21/2024 2:46 PM EDT [facility] Pleural Fluid Structure of right pleural cavity / Unknown Non-blood Collection / Unknown 12/21/2024 1:47 PM EDT 12/21/2024 2:00 PM EDT Narrative [facility] - 12/21/2024 2:46 PM EDT No reference ranges have been established for body fluids. Clinical correlation recommended. Yesenia Knight MD LAB BODY FLUIDS AND STOOLS ORDERABLES Final Result Performing Organization Address [facility]/ZIP Co de Phone Number [facility] [address] [place] [address], [place] [phone] * Lactate dehydrogenase, body fluid (12/21/2024 1:47 PM EDT) Only the most recent of2 resultswithin the time period is included. LD, Fluid 422 See Comment unit/L LAB CHEMISTRY METHOD 12/21/2024 2:46 PM EDT [facility] Pleural Fluid Structure of right pleural cavity / Unknown Non-blood Collection / Unknown 12/21/2024 1:47 PM EDT 12/21/2024 2:00 PM EDT Narrative [facility] - 12/21/2024 2:46 PM EDT No reference ranges have been established for body fluids. Clinical correlation recommended. Yesenia Knight MD LAB BODY FLUIDS AND STOOLS ORDERABLES Final Result Performing Organization Address [facility] Co de Phone Number [facility] [address] [place] [address], [place] [phone] * Glucose, body fluid (12/21/2024 1:47 PM EDT) Only the most recent of2 resultswithin the time period is included. Glucose, Fluid 140 See Comment mg/dL LAB CHEMISTRY METHOD 12/21/2024 2:46 PM EDT [facility] Pleural Fluid Structure of right pleural cavity / Unknown Non-blood Collection / Unknown 12/21/2024 1:47 PM EDT 12/21/2024 2:00 PM EDT Narrative [facility] - 12/21/2024 2:46 PM EDT No reference ranges have been established for body fluids. Clinical correlation recommended. Yesenia Knight MD LAB BODY FLUIDS AND STOOLS ORDERABLES Final Result Performing Organization Address [facility] Co de Phone Number [facility] [address] [place] [address], [place] [phone] from Last 3 Months Insurance MEDICARE UNICARE Advance Directives * Full Code - Confirmed (Latest Code Status on File) Date Activated Date Inactivated Comments 01/12/2025 6:09 PM 01/20/2025 8:[address] [facility] was ascertained in the following way: Code status discussion: discussion with patient To update the patient's code status, place a code status order. Do not modify or discontinue any currently active code status orders. * Full Code - Default Date Activated Date Inactivated Comments 01/12/2025 4:55 PM 01/12/2025 6:09 PM This is orde r is used when code status has not been discussed with the patient, or code status is otherwise unknown/unconfirmed To update the patient's code status, place a code status order. Do not modify or discontinue any currently active code status orders. * Full Code - Default Date Activated Date Inactivated Comments 08/17/2024 7:10 [...] currently active code status orders. Care Teams Geriatric Physical Therapist Relationship Specialty Start Date End Date Pascale Johnson MD [address] [place] [id number] PCP - General Internal Medicine 07/14/24
== END 2025-01-21 17:31 | disposition home or self-care (01) ==
LOC: HO.HVNA 17:30
PROVIDERS: Visit Provider Student in an Organized Health Care Education/Training Program
DX: Z51.81 Encounter for therapeutic drug level monitoring (principal)
CPT/HCPCS: 36415; 80202

== ENCOUNTER 2025-01-27 17:42 | Outpatient (REF) | payer MEDICARE, OTHER, SELFPAY ==
[2025-01-27 17:44] LABS: MANUAL DIFF FLAG NO
[2025-01-27 17:49] LABS: Basophils Absolute Auto 0.1 X10*3/uL (0.0-0.2); Basophils Percent Auto 1.9 % (0-2); Eosinophils Absolute Auto 0.2 X10*3/uL (0.0-0.4); Hematocrit 30.8 % (37.0-47.0); Hemoglobin 9.6 g/dl (12.0-16.0); Imm Gran Abs Auto 0.01 X10*3/uL (0.00-0.03); Imm Gran Pct Auto 0.2 % (0.0-0.4); Lymphocytes Absolute Auto 0.7 X10*3/uL (1.2-4.9); Lymphocytes Percent Auto 15.2 % (20-40); Mean Corpuscular HGB Conc 31.2 g/dl (31.0-35.0); Mean Corpuscular Volume 109.2 fL (80.0-98.0); Mean Platelet Volume 10.4 fL (9.4-12.3); Monocytes Absolute Auto 0.7 X10*3/uL (0.1-1.2); Monocytes Percent Auto 13.6 % (2-11); Neutrophils Absolute Auto 3.1 x10*3/uL (2.0-8.3); Neutrophils Percent Auto 65.1 % (45-73); Platelet Count 282 X10*3/uL (160-400); Red Blood Count 2.82 X10*6/uL (4.20-5.50); Red Cell Distribution Width 15.4 % (11.0-16.0); White Blood Count 4.8 X10*3/uL (4.8-10.8)
[2025-01-27 17:59] LABS: Vancomycin Trough 18.2 mcg/mL (10.0-20.0)
[2025-01-27 18:03] LABS: Alanine Aminotransferase 8 U/L (0-31); Albumin Level 2.7 g/dL (3.5-5.0); Alkaline Phosphatase 63 U/L (39-117); Anion Gap 12 (12-20); Aspartate Amino Transferase 29 U/L (5-31); Bilirubin Total 0.3 mg/dL (0.0-1.0); Blood Urea Nitrogen 10 mg/dL (9-16); Calcium 8.2 mg/dL (8.4-10.2); Carbon Dioxide 29 mmol/L (22-29); Chloride 109 mmol/L (96-108); Estimated Glomerular Filt Rate > 60; Glucose Random 134 mg/dL (60-115); Potassium 3.8 mmol/L (3.3-5.1); Sodium 146 mmol/L (135-145); Total Protein 5.6 g/dL (6.5-8.0)
== END 2025-01-27 17:43 | disposition home or self-care (01) ==
LOC: HO.HVNA 17:42
PROVIDERS: Visit Provider Internal Medicine Infectious Disease
DX: J41.0 Simple chronic bronchitis (principal)
CPT/HCPCS: 36415; 80053; 80202; 85025

== ENCOUNTER 2025-02-02 18:01 | Outpatient (REF) | payer MEDICARE, OTHER, SELFPAY ==
[2025-02-02 18:05] LABS: MANUAL DIFF FLAG NO
[2025-02-02 18:09] LABS: Basophils Absolute Auto 0.1 X10*3/uL (0.0-0.2); Basophils Percent Auto 2.4 % (0-2); Eosinophils Absolute Auto 0.1 X10*3/uL (0.0-0.4); Eosinophils Percent Auto 4.1 % (0-4); Hematocrit 30.7 % (37.0-47.0); Hemoglobin 9.6 g/dl (12.0-16.0); Imm Gran Abs Auto 0.01 X10*3/uL (0.00-0.03); Imm Gran Pct Auto 0.3 % (0.0-0.4); Lymphocytes Absolute Auto 0.5 X10*3/uL (1.2-4.9); Lymphocytes Percent Auto 17.1 % (20-40); Mean Corpuscular HGB Conc 31.3 g/dl (31.0-35.0); Mean Corpuscular Hemoglobin 34.3 pg (27.0-33.0); Mean Corpuscular Volume 109.6 fL (80.0-98.0); Mean Platelet Volume 10.8 fL (9.4-12.3); Monocytes Absolute Auto 0.5 X10*3/uL (0.1-1.2); Monocytes Percent Auto 17.4 % (2-11); Neutrophils Absolute Auto 1.7 x10*3/uL (2.0-8.3); Neutrophils Percent Auto 58.7 % (45-73); Platelet Count 196 X10*3/uL (160-400); White Blood Count 2.9 X10*3/uL (4.8-10.8)
[2025-02-02 18:42] LABS: Vancomycin Trough 19.1 mcg/mL (10.0-20.0)
[2025-02-02 18:44] LABS: Alanine Aminotransferase 7 U/L (0-31); Albumin Level 2.6 g/dL (3.5-5.0); Alkaline Phosphatase 63 U/L (39-117); Anion Gap 11 (12-20); Aspartate Amino Transferase 44 U/L (5-31); Bilirubin Total 0.3 mg/dL (0.0-1.0); Blood Urea Nitrogen 10 mg/dL (9-16); Carbon Dioxide 30 mmol/L (22-29); Chloride 108 mmol/L (96-108); Estimated Glomerular Filt Rate 51; Glucose Random 190 mg/dL (60-115); Potassium 3.5 mmol/L (3.3-5.1); Sodium 145 mmol/L (135-145); Total Protein 5.5 g/dL (6.5-8.0)
== END 2025-02-02 18:02 | disposition home or self-care (01) ==
LOC: HO.HVNA 18:01
PROVIDERS: Visit Provider Internal Medicine Infectious Disease
DX: C80.1 Malignant (primary) neoplasm, unspecified (principal); J91.0 Malignant pleural effusion
CPT/HCPCS: 36415; 80053; 80202; 85025

== ENCOUNTER 2025-05-04 13:59 | Outpatient (AMB) | payer MEDICARE, OTHER, SELFPAY ==
[2025-05-04 14:06] VITALS: BP 120/68; PULSE 72; RESP 18; TEMP 36.6; O2SAT 97; BMI 25.2
--- NOTE | 2025-05-04 14:06 | A.OFFVIS_ITS ---
Intake Vital Signs 05/04/25 14:06 Height 5 ft 6 in Weight 156 lb BMI 25.2 BP 120/68 Blood Pressure Location Rt brachial Position Sitting Respiration 18 Pulse 72 Pulse Source Pulse Oximeter Temp 97.8 F Temp Source Oral Pulse Oximetry (%) 97 Oxygen Delivery Method Room Air Intake Visit Reasons: SWV G0439 Allergies codeine Allergy (Unknown, Verified 05/04/25 14:30) vomitting Sulfa (Sulfonamide Antibiotics) Allergy (Unknown, Verified 05/04/25 14:30) hallucinating HPI SWV G0439 HPI Details Initiated the conversation about Advanced Directives. Advanced Directives help? patients prepare for current and future decisions about their medical treatment? and place of care. Discussed with patient that it is a process where a patients? current condition and prognosis are reviewed, their wishes for information? regarding their illness are elicited, and likely medical dilemmas are presented? and options discussed. The form can be amended as needed, reviewed yearly and? make changes as needed IPPE/AWV ? year old presents? for her ? Annual? Wellness Visit, initial visit.? Medical / Social History Reviewed? Past Medical History ?Yes? . ? [place]? of Care / Care Team list updated ?Yes . ? Surgical/Hospitalization? History ?Yes . ? Current Medications? (including OTC and supplements) ?Yes . ? Family History ?Yes? . ? Tobacco? Control form ?Yes . ? AUDIT-C (Alcohol use) form? ?Yes . ? Illicit drug use in Social? History ?Yes . ? Current diagnosis of? depression? ?No ? Appropriate PHQ2/PHQ9? completed ?Yes . ? Data entered by ?[employer] [employer] and reviewed by provider ? Fall Risk ? Fall? History? Have you had any falls with? injury in the past year? ?No . ? Have you had two or more? falls in the past year? ?No . ? Fall Risk Assessment: ?No? falls in the past year . ? HRA filled out by? the patient, reviewed by Provider and scanned. ? IPPE/AWV ? Balance? [place]berg? ?Yes . ? Tandem? walk ?Yes . ? Walk and? Turn ?Yes . ? Rise from? sit to stand ?Yes . ?Vision? Corrective? lens ?Yes ? Vision? screen ? Up-to-date, has an appointment [] for vision? screening and glaucoma screening ?Hearing? Whisper? test ?pass .? Initiated the conversation about Advanced Directives. Advanced Directives help? patients prepare for current and future decisions about their medical treatment? and place of care. Discussed with patient that it is a process where a patients? current condition and prognosis are reviewed, their wishes for information? regarding their illness are elicited, and likely medical dilemmas are presented? and options discussed. The form can be amended as needed, reviewed yearly and? make changes as needed Written? Plan?Completed. See Patient? Documents. [facility] Medical History (Updated 05/04/25 @ 20:16 by Pascale Jonhson MD) Adenocarcinoma of lung, stage 4 Vitamin D deficiency Diabetes Microalbuminuria Asthma History of TIAs HTN (hypertension) Surgical History H/O: hysterectomy Family History Father History of cancer Mother No problems noted. Social History Housing: House Patient Tobacco Use Status: Former Tobacco user e-Cigarette/Vaping Use: Never Used service: No Current occupational status: retired Cognitive needs: No Hearing needs: No Vision needs: Yes Questionnaire Medicare Wellness Checkup What is your age?: 80 or older What gender do you identify with?: female During the past 4 weeks, how much have you been bothered by emotional problems such as feeling anxious, depressed, irritable, sad or downhearted, and blue?: not at all During the past 4 weeks, has your physical & emotional health limited your social activities with family, friends, neighbors, or groups?: slightly During the past 4 weeks, how much bodily pain have you generally had?: very mild pain During the past 4 weeks, was someone available to help you if you needed & wanted help?: yes, as much as I wanted During the past 4 weeks, what was the hardest physical activity you could do for at least 2 minutes?: very light Can you get to places out of walking distance without help? (For eg., can you travel alone on buses, taxis or drive your car?): No Can you go shopping for groceries or clothes without someone's help?: No Can you prepare your own meals?: Yes Can you do your housework without help?: No Because of any health problems, do you need the help of another person with your personal care needs such as eating, bathing, dressing or getting around the house?: No Can you handle your own money without help?: Yes During the past 4 weeks, how would you rate your health in general?: fair During the past 4 weeks how have things been going for you?: pretty well Are you having difficulties driving your car?: not applicable, I don't use a car Do you always fasten your seat belt when you are in a car?: yes, usually During past 4 weeks, have you been bothered by the following: never: Teeth or denture problems? and Problems using the telephone?, seldom: Falling or dizzy when standing up and Trouble eating well? and sometimes: Tiredness or fatigue? Have you fallen 2 or more times in the past year?: No Are you afraid of falling?: No Are you a smoker?: no During the past 4 weeks, how many drinks of wine, beer, or other alcoholic beverages did you have?: no alcohol at all Do you exercise for about 20 minutes 3 or more times a week?: no, I usually do not exercise this much Have you been given information to help with the following?: yes: Hazards in y our house that might hurt you? and yes: Keeping track of your medications? How often do you have trouble taking medicines the way you have been told to take them?: I always take medicine as prescribed How confident are you that you can control & manage most of your health problems?: very confident What is your race?: White PHQ-9 Over the last 2 weeks, how often have you been bothered by any of the following problems? 1. Little interest or pleasure in doing things: not at all 2. Feeling down, depressed, or hopeless: not at all 3. Trouble falling or staying asleep, or sleeping too much: several days 4. Feeling tired or having little energy: several days 5. Poor appetite or overeating: not at all 6. Feeling bad about yourself - or that you are a failure or have let yourself or your family down: not at all 7. Trouble concentrating on things, such as reading the newspaper or watching television: not at all 8. Moving or speaking so slowly that other people could have noticed. Or the opposite - being so fidgety or restless that you have been moving around a lot more than usual: not at all 9. Thoughts that you would be better off or of hurting yourself in some way: not at all Total score: 2 Depression Screening Interpretation: Negative Depression Screening Done: Yes 70083 - PHQ-9 Billing: Yes Source: Developed by Drs. Chetan Strong, Emma Maya, Celestino Franklin and colleagues, with an educational james from [employer]. Review of Systems Const All systems reviewed & are unremarkable except as noted in HPI and below Eyes Reports no additional complaints ENT Reports no additional complaints Card Reports no additional complaints Resp Reports no additional complaints GI Reports no additional complaints Reports no additional complaints Physical Exam Vital Signs: Last Vital Signs Temp 97.8 F 05/04/25 14:06 Pulse 72 05/04/25 14:06 Resp 18 05/04/25 14:06 BP 120/68 05/04/25 14:06 Pulse Ox 97 05/04/25 14:06 Oxygen Delivery Method Room Air 05/04/25 14:06 BMI result Body Mass Index 25.2 Const General: no acute distress HEENT Head: Yes normal to inspection Neck Neck: Yes no lymphadenopathy and Yes supple Resp Effort & Inspection: normal respiratory effort Auscultation: clear to auscultation bilaterally Cardio Rhythm: regular rhythm Heart sounds: S1 normal heart sound present and S2 normal heart sound present GI Inspection: Yes normal to inspection Palpation (GI): Soft to palpation Percussion: Yes normal to percussion Auscultation: normal bowel sounds Extrem General: Yes no clubbing, cyanosis or edema Assessment & Plan Assessment & Plan (1) Diabetes: Comment: A1c was 7.2, . Continue ADA diet increase physical activity weight loss discussed with the patient, pt declined med Code(s): E11.9 - Type 2 diabetes mellitus without complications Plan: Patient will have fasting blood work at [facility] was giving the orders including A1c. She reports fasting glucose between 110-130 and has been following ADA diet. She is not interested in taking medications (2) HTN (hypertension): Comment: continue medications Code(s): I10 - Essential (primary) hypertension Plan: Continue current medication (3) Vitamin D deficiency: Code(s): E55.9 - Vitamin D deficiency, unspecified Plan: Continue vitamin-D (4) Adenocarcinoma of lung, stage 4: Comment: recurrent pleural R effusion, pleural Pleurx, on chemo Keytruda since 09/2024 f/u [facility] Code(s): C34.90 - Malignant neoplasm of unspecified part of unspecified bronchus or lung Plan: Follow-up with oncology Orders: Orders Hemoglobin A1c Today E11.9 - Type 2 diabetes mellitus without complications, E55.9 - Vitamin D deficiency, unspecified, E87.6 - Hypokalemia, I10 - Essential (primary) hypertension Vitamin D 25-OH Total Today E11.9 - Type 2 diabetes mellitus without complications, E55.9 - Vitamin D deficiency, unspecified, E87.6 - Hypokalemia, I10 - Essential (primary) hypertension Comprehensive Met. Panel Today E11.9 - Type 2 diabetes mellitus without complications, E55.9 - Vitamin D deficiency, unspecified, E87.6 - Hypokalemia, I10 - Essential (primary) hypertension Complete Blood Count Auto Diff Today E11.9 - Type 2 diabetes mellitus without complications, E55.9 - Vitamin D deficiency, unspecified, E87.6 - Hypokalemia, I10 - Essential (primary) hypertension Patient Instructions: Follow-up with oncology Quality Reporting (2019) Depression/Bipolar (159/160/161/177) PHQ-9: Total score: 2 Coding Level of Care Code Medicare Subsequent (G0439) Diagnoses Diabetes E11.9 HTN (hypertension) I10 Vitamin D deficiency E55.9 Adenocarcinoma of lung, stage 4 C34.90 CPT Codes Advance Care Planning - Advance Care Planning discussion: On file, no changes ([id number]) Advance Care Planning - Time spent: 1-15 minutes, on File ([id number]) Additional Codes PHQ-9 - 78849 - PHQ-9 Billing: Yes ([id number]) Advance Care Planning Advance Care Planning discussion: On file, no changes Forms completed: Health Care Proxy Time spent: 1-15 minutes, on File Did not discuss due to Cultural/Spiritual beliefs: Yes
--- OUTSIDE RECORDS SUMMARY | 2025-05-04 16:14 | XMS_ITS ---
Author Organization [facility] Address [address] [place] [address] Phone Care Team Providers Care Employment Instructional Associate Name Role Phone Pascale Johnson MD Primary Care Provider [phone] Active Problems Problem Noted Date Diagnosed Date Clotted chest tube 01/12/2025 Primary adenocarcinoma of ri ght lung ([facility] V24, [facility] V28) 09/16/2024 Hypothyroidism (acquired) 09/16/2024 Pleural effusion, malignant ([facility]/HCC V28) 2023 IBS (irritable bowel syndrome) Current Oncology Plans OUTPATIENT TRANSFUSION (PRN)* Plan Start Date:01/10/2025 Plan Provider:lEder Jacobs MD Linked Problems Primary adenocarcinoma of ri ght lung ([facility] V24, [facility] V28) Treatment Medications No medications scheduled. Pembrolizumab ( 21-day cycle, 200 mg )* Plan Start Date:03/09/2025 Plan Provider:Elder Jacobs MD Linked Problems Hypothyroidism (acquired)Ple ural effusion, malignant ([facility] V28)Primary adenocarcinoma of right lung ([facility] V24, [facility] V28) Treatment Medications Current Day (Day 1 , Cycle 4 - Planned for 05/12/2025) Next Day (Day 1, Cycle 5 - Planned for 06/02/2025) pembrolizumab (KEYTRUDA)pembrolizumab (KEYTRUDA) chemo IVPB (adult) pembrolizumab (KEYTRUDA) 200 mg in sodium chloride 108 mL chemo IVPB pembrolizumab (KEYTRUDA) 200 mg in sodium chloride 108 mL chemo IVPB Past Plans Oncology Treatment Plan Name Start Date Discontinue Date Treatment Medications Discontinue Reason Plan Provider Cycles Pembrolizumab + PEMEtrexed 5 03/09/2025 pembrolizumab (KEYTRUDA)pembr olizumab (KEYTRUDA) chemo IVPB (adult)PEMEtrex ed (ALIMTA)PEMEtre xed (ALIMTA) chemo IVPB in 100 mL NS Toxicity/Comp lication Elder Jacobs MD 5 of 35 cycles started Radiation Treatments * No radiation treatments are documented for this patient in [facility]. Treatments may have been administered in another system. Resolved Problems Problem Noted Date Diagnosed Date Resolved Date Recurrent right pleural effusion 02/05/2025 02/07/2025 Pleural effusion 07/14/2024 07/15/2024
--- OUTSIDE RECORDS SUMMARY | 2025-05-04 16:14 | XMS_ITS ---
Author Name [facility] Organization Unknown History of Medication Use Medication Directions Dispensed Refills Start Date End Date Stat vancomycin/0.9 % sod chloride (vancomycin in 0.9 % sodium chl) 1.5 gram/250 mL solution Infuse 167 mL (1 g total) into a venous catheter 1 (one) time each day for 3 doses. 02/08/2025 active apixaban (ELIQUIS) starter pack Take 2 tablets (10 mg total) by mouth 2 (two) times a day for 7 days. Then take 1 tablet (5 mg total) by mouth 2 (two) times a day. 02/07/2025 active magnesium oxide (MAG-OX) 400 mg magnesium tablet Take 1 tablet (400 mg total) by mouth 1 (one) time each day for 10 days. 02/07/2025 active potassium chloride (KLOR-CON M20) 20 mEq CR tablet Take 1 tablet (20 mEq total) by mouth 1 (one) time each day for 10 days. Tablet may be swallowed whole (do not crush/chew/suck on) OR broken in half and each half swallowed separately OR dissolved (whole tablet) in ~4 ounces of water (allow ~2 minutes to dissolve, stir well and administer immediatel 02/07/2025 active furosemide (LASIX) 20 mg tablet Take 1 tablet (20 mg total) by mouth 1 (one) time each day. 02/04/2025 active multivitamin tablet Take 1 tablet by mouth 1 (one) time each day. 01/21/2025 active thiamine (VITAMIN B-1) 100 mg tablet Take 1 tablet (100 mg total) by mouth 1 (one) time each day. 01/21/2025 active vancomycin/0.9 % sod chloride (vancomycin in 0.9 % sodium chl) 1.5 gram/250 mL solution Infuse 250 mL (1.5 g total) into a venous catheter 1 (one) time each day for 21 days. 01/20/2025 active doxycycline (VIBRAMYCIN) 100 mg capsule Take 1 [...] 1 (one) time each day. 05/12/2024 active Allergies Allergen Reaction Severity Comment Documented Date Source Statu s SULFA (SULFONAMIDE ANTIBIOTICS) RENAL IMPAIRMENT 07/14/2024 [facility] active CODEINE NAUSEA AND VOMITING [facility] Problems Problem Status Onset Date Problem Type Date of Resoluti on Source IBS (irritable bowel syndrome) active ProblemAct [facility] Primary adenocarcinoma of right lung (CMS/HCC V24, CMS/HCC V28) active 2024-09-16 ProblemAct [facility] Hypothyroidism (acquired) active 2024-09-16 ProblemAct [facility] Clotted chest tube active 2025-01-12 ProblemAct [facility] Pleural effusion, malignant (CMS/HCC V28) active 2024-08-12 ProblemAct [facility] Clotted chest tube active 2025-01-12 ProblemAct [facility] Hypothyroidism (acquired) active 2024-09-16 ProblemAct [facility] Pleural effusion, malignant ([facility]/HCC V28) active 2024-08-12 ProblemAct [facility] Primary adenocarcinoma of right lung (CMS/HCC V24, CMS/HCC V28) active 2024-09-16 ProblemAct [facility] IBS (irritable bowel syndrome) active ProblemAct [facility] Hypothyroidism (acquired) active 2024-09-16 ProblemAct [facility] Primary adenocarcinoma of right lung (CMS/HCC V24, CMS/HCC V28) active 2024-09-16 ProblemAct [facility] IBS (irritable bowel syndrome) active ProblemAct [facility] Pleural effusion, malignant ([facility]/HCC V28) active 2024-08-12 ProblemAct [facility]
--- OUTSIDE RECORDS SUMMARY | 2025-05-04 16:14 | XMS_ITS | Clinical Summary ---
Author Organization [facility] Address [address] [place] [address] Phone Care Team Providers Care Cell Phone Repair Technician Name Role Phone Pascale Johnson MD Primary Care Provider Allergies Active Allergy Reactions Criticality Noted Date [...] (six) hours if needed. 06/01/20 24 Active Trelegy Ellipta 100-62.5-25 mcg inhaler 09/15/19 25 Active folic acid (FOLVITE) 1 mg tablet TAKE ONE TABLET BY MOUTH ONCE DAILY 30 tablet 5 02/17/20 25 Active apixaban (ELIQUIS) 5 mg tablet Take 1 tablet (5 mg total) by mouth 2 (two) times a day. 60 tablet 5 03/16/20 25 Active magnesium oxide 250 mg magnesium tablet Take 1 tablet (250 mg total) by mouth 1 (one) time each day. Active potassium chloride (KLOR-CON M20) 20 mEq CR tablet TAKE ONE TABLET BY MOUTH ONCE DAILY FOR 10 DAYS 30 tablet 1 04/10/20 25 025 Active furosemide (LASIX) 20 mg tablet TAKE 1 TABLET BY MOUTH ONE TIME EACH DAY 30 tablet 1 04/13/20 25 Active furosemide (LASIX) 20 mg tablet Take 1 tablet (20 mg total) by mouth 1 (one) time each day. 30 tablet 1 02/05/20 25 025 Discontinued potassium chloride (KLOR-CON M20) 20 mEq CR tablet Take 1 tablet (20 mEq total) by mouth 1 (one) time each day. Tablet may be swallowed whole (do not crush/chew/suc k on) OR broken in half and each half swallowed separately OR dissolved (whole tablet) in ~4 ounces of water (allow ~2 minutes to dissolve, stir well and administer immediately). 30 tablet 1 04/01/20 25 025 Discontinued Active Problems Problem Noted Date Diagnosed Date Clotted chest tube 01/12/2025 Primary adenocarcinoma of ri ght lung (CMS/HCC V24, CMS/HCC V28) 09/16/2024 Hypothyroidism (acquired) 09/16/2024 Pleural effusion, malignant (CMS/HCC V28) 2023 IBS (irritable bowel syndrome) Resolved Problems Problem Noted Date Diagnosed Date Resolved Date Recurrent right pleural effusion 02/05/2025 02/07/2025 Pleural effusion 07/14/2024 07/15/2024 Encounters Date Type Department Care Team Description 04/21/2025 1:56 PM EDT - 04/21/2025 11:59 PM EDT Hospital Encounter [address] [phone] Elder Jacobs MD Hypothyroidism (acquired) (Primary Dx); Pleural effusion, malignant (CMS/HCC V28); Primary adenocarcinoma of right lung (CMS/HCC V24, CMS/HCC V28) Discharge Disposition: Home or Self Care 04/19/2025 2:45 PM EDT Office Visit [facility] Hematology Oncology [address] [place] [phone] Elder Jacobs MD Primary adenocarcinoma of right lung (CMS/HCC V24, CMS/HCC V28) (Primary Dx) 03/31/2025 1:47 PM EDT - 03/31/2025 11:59 PM EDT Hospital Encounter [address] [phone] Hypothyroidism (acquired) (Primary Dx); Pleural effusion, malignant ([facility]/HCC V28); Primary adenocarcinoma of right lung (CMS/HCC V24, CMS/HCC V28) Discharge Disposition: Home or Self Care 03/29/2025 1:00 PM EDT Office Visit [facility] Hematology Oncology [address] [place] [phone] Elder Jacobs MD Primary adenocarcinoma of right lung (CMS/HCC V24, CMS/HCC V28) (Primary Dx); Hypothyroidism (acquired) 03/29/2025 Telephone [facility] Hematology Oncology [address] [place] [phone] Kiley Stout CO 03/18/2025 3:00 PM EDT Office Visit Pulmonology - [place] [address] [phone] Yesenia Knight MD Malignant pleural effusion ([facility]/HCC V28) (Primary Dx); Primary adenocarcinoma of lung, unspecified laterality (CMS/HCC V24, CMS/HCC V28); SOB (shortness of breath) 03/10/2025 1:51 PM EDT - 03/10/2025 11:59 PM EDT Hospital Encounter [facility] Infusion [facility] [address] [place] [phone] Elder Jacobs MD Hypothyroidism (acquired) (Primary Dx); Pleural effusion, malignant ([facility]/HCC V28); Primary adenocarcinoma of right lung ([facility]/HCC V24, CMS/HCC V28) Discharge Disposition: Home or Self Care 03/08/2025 1:52 PM EDT - 03/08/2025 11:59 PM EDT Hospital Encounter [facility] PET Scan [address] [place] [phone] Primary adenocarcinoma of right lung (CMS/HCC V24, CMS/HCC V28); Non-small cell lung cancer metastatic to bone (CMS/HCC V24, CMS/HCC V28) Discharge Disposition: Home or Self Care 02/28/2025 11:45 AM EDT Office Visit [facility] Hematology Oncology [address] [place] [phone] Elder Jacobs MD Primary adenocarcinoma of right lung ([facility] V24, [facility] V28) (Primary Dx); Acquired autoimmune hypothyroidism; Non-small cell lung cancer metastatic to bone ([facility] V24, [facility]/HCC V28) 02/23/2025 Telephone [facility] Hematology Oncology [address] [place] [phone] Elder Jacobs MD 02/22/2025 4:00 PM EDT Office Visit Infectious Disease [facility] [address] [phone] Fabiola Wilson MD Empyema ([facility] V24, [facility] V28) (Primary Dx); Drug side effects 02/21/2025 Telephone Infectious Disease [facility] [address] [phone] Fabiola Wilson MD 02/15/2025 2:30 PM EDT Office Visit Pulmonology [facility] [address] [phone] Yesenia Knight MD Malignant pleural effusion ([facility] V28) (Primary Dx); Pancytopenia ([facility] V24, [facility] V28); SOB (shortness of breath); Primary adenocarcinoma of lung, unspecified laterality ([facility] V24, [facility] V28) 02/14/2025 Telephone Thoracic Surgery [facility] [address] [phone] Katrina Schafer RN 02/09/2025 Telephone Infectious Disease [facility] [address] [facility] [address] [facility] [place] [phone] Chung Lee LPN 02/08/2025 2:30 PM EDT Office Visit Pulmonology [facility] [address] [phone] Yesenia Knight MD Malignant pleural effusion ([facility] V28) (Primary Dx); Pancytopenia ([facility] V24, [facility] V28); SOB (shortness of breath); Primary adenocarcinoma of lung, unspecified laterality ([facility] V24, [facility] V28) 02/04/2025 9:23 PM EDT - 02/07/2025 6:11 PM EDT Hospital Encounter [facility] [address] [place] [phone] Lacey Eli MD Maduakor, Emmanuel C, MD Mohani, Priya, MD Bell, Alistair A, MD Surendran, Anupama, MD Japaridze, Anna, MD Recurrent right pleural effusion (Primary Dx); Dyspnea on exertion; Leukopenia, unspecified type; Bilateral lower extremity edema; Chronic anemia; Acute deep vein thrombosis (DVT) of proximal vein of left lower extremity ([facility] V24, [facility] V28) Discharge Disposition: [place] [facility] 02/04/2025 Telephone Thoracic Surgery - [place] 299 [facility] [address] [place] [phone] Katrina Schafer, JAYLA 02/04/2025 Telephone Infectious Disease [facility] [address] [place] [phone] Chung Lee LPN 02/04/2025 Telephone [facility] Hematology Oncology [address] [place] [phone] Elder Jacobs MD 02/03/2025 Telephone Infectious Disease [facility] 175 [facility] [address] [place] [phone] Laya Arita, JAYLA from Last 3 Months Surgical History Surgery Date Site/Laterality Comments HYSTERECTOMY EYE SURGERY glaucoma Medical History Medical History Date Comments Hypertension IBS (irritable bowel syndrome) Asthma PONV (postoperative nausea and vomiting) HL (hearing loss) Blindness cataracts Dental disease full set Diabetes mellitus ([facility] V24, [facility] V28) diet controlled Bleeding internal hemorrhoids Joint [...] Safety Answer Date Record ed Physical Abuse 02/05/2025 Verbal Abuse 02/05/2025 Comments Unknown Sex and Gender Information Value Date Recorded Sex Assigned at Female 07/14/2024 5:51 PM EST Legal Sex Female 1:49 PM EST Gender Identity Female 07/14/2024 5:51 PM EST Sexual Orientation Straight 08/17/2024 5: 58 AM EST Obstetrics History Last Filed Vital Signs Vital Sign Reading Time Taken Comments Blood Pressure 125/61 04/21/2025 2:06 PM EDT Pulse 64 04/21/2025 2:06 PM EDT Temperature 36.4 C (97.5 F) 04/21/2025 2:06 PM EDT Respiratory Rate 16 04/21/2025 2:06 PM EDT Oxygen Saturation 97% 04/21/2025 2:06 PM EDT Inhaled Oxygen Concentration - - Weight 70.3 kg (155 lb) 04/19/2025 2:58 PM EDT Height 166.4 cm (5' 5.5 ) 03/18/2025 3:14 PM EDT Body Mass Index 25.4 03/18/2025 3:14 PM EDT Plan of Treatment Upcoming Encounters Date Type Department Care Team (Late st Contact Info) Description 05/10/2025 3:30 PM EDT Office Visit [facility] Hematology Oncology [address] [place] [phone] Elder Jacobs MD [address] [place] [phone] 05/12/2025 2:00 PM EDT Appointment [facility] [address] [phone] 05/27/2025 3:00 PM EDT Office Visit Pulmonology - [address] [place] [phone] Yesenia Knight MD [address] [place] [phone] Health Maintenance Due Date Last Done Comments COVID-19 Vaccine (#1) 1945 DTaP,Tdap,and Td Vaccines (1 - Tdap) 1961 Zoster Vaccines (1 of 2) 1961 RSV Immunization Adult Patients (1 - 1-dose 75+ series) 2017 Pneumococcal Vaccine: 50+ Years (2 of 2 - PPSV23) 07/12/2019 05/17/2019, 11/13/2018 Cholesterol Screening (Lipid Panel) 07/14/2024 Medicare Annual Wellness Visit 07/14/2024 Osteoporosis Screening (Bone Density Screening) 07/14/2024 Depression Screening 09/01/2024 Influenza Vaccine (#1) 2025 9, 11/12/2018, 04/24/2016, Additional history exists Social Influencers of Health Screening 01/18/2026 01/18/2025 Hypertension/CHF/CAD Annual BMP Blood Test 04/19/2026 04/19/2025, 03/29/2025, 02/28/2025, Additional history exists Falls Risk Assessment 04/21/2026 04/21/2025 HIB Vaccines Aged Out No longer eligi [...] Diagnosis Comments CBC WITH AUTO DIFFERENTIAL Routine 04/19/2025 3:22 PM EDT Primary adenocarcinoma of right lung (CMS/HCC V24, CMS/HCC V28) THYROID STIMULATING HORMONE Routine 04/19/2025 3:22 PM EDT Primary adenocarcinoma of right lung (CMS/HCC V24, CMS/HCC V28) Hypothyroidism (acquired) COMPREHENSIVE METABOLIC PANEL Routine 04/19/2025 3:22 PM EDT Primary adenocarcinoma of right lung (CMS/HCC V24, CMS/HCC V28) CBC AND DIFFERENTIAL Routine 04/19/2025 3:22 PM EDT Primary adenocarcinoma of right lung (CMS/HCC V24, CMS/HCC V28) CBC WITH AUTO DIFFERENTIAL Routine 03/29/2025 2:15 PM EDT Primary adenocarcinoma of right lung (CMS/HCC V24, CMS/HCC V28) THYROID STIMULATING HORMONE Routine 03/29/2025 2:15 PM EDT Primary adenocarcinoma of right lung (CMS/HCC V24, CMS/HCC V28) Hypothyroidism (acquired) COMPREHENSIVE METABOLIC PANEL Routine 03/29/2025 2:15 PM EDT Primary adenocarcinoma of right lung (CMS/HCC V24, CMS/HCC V28) CBC AND DIFFERENTIAL Routine 03/29/2025 2:15 PM EDT Primary adenocarcinoma of right lung (CMS/HCC V24, CMS/HCC V28) PET CT SKULL TO MID THIGH SUBSEQUENT Routine 03/08/2025 4:00 PM EDT Primary adenocarcinoma of right lung (CMS/HCC V24, CMS/HCC V28) Non-small cell lung cancer metastatic to bone (CMS/HCC V24, CMS/HCC V28) CBC WITH AUTO DIFFERENTIAL Routine 02/28/2025 11:54 AM EDT Primary adenocarcinoma of right lung (CMS/HCC V24, CMS/HCC V28) THYROID STIMULATING HORMONE Routine 02/28/2025 11:54 AM EDT Primary adenocarcinoma of right lung (CMS/HCC V24, CMS/HCC V28) Acquired autoimmune hypothyroidism COMPREHENSIVE METABOLIC PANEL Routine 02/28/2025 11:54 AM EDT Primary adenocarcinoma of right lung (CMS/HCC V24, CMS/HCC V28) CBC AND DIFFERENTIAL Routine 02/28/2025 11:54 AM EDT Primary adenocarcinoma of right lung (CMS/HCC V24, CMS/HCC V28) CBC WITH AUTO DIFFERENTIAL Routine 02/15/2025 2:52 PM EDT Pancytopenia (CMS/HCC V24, CMS/HCC V28) CBC AND DIFFERENTIAL Routine 02/15/2025 2:52 PM EDT Pancytopenia (CMS/HCC V24, CMS/HCC V28) BASIC METABOLIC PANEL Routine 02/15/2025 2:52 PM EDT Pancytopenia (CMS/HCC V24, CMS/HCC V28) PROTHROMBIN TIME WITH INR Routine 02/15/2025 2:52 PM EDT Pancytopenia (CMS/HCC V24, CMS/HCC V28) SOB (shortness of breath) ECG ANNOTATED 02/08/2025 POCT GLUCOSE BLOOD Routine 02/07/2025 4: 44 PM EDT POCT GLUCOSE BLOOD Routine 02/07/2025 11 :15 AM EDT POCT GLUCOSE BLOOD Routine 02/07/2025 8: 02 AM EDT COMPLETE BLOOD COUNT Routine 02/07/2025 3:50 AM EDT MAGNESIUM Routine 02/07/2025 3:49 AM EDT BASIC METABOLIC PANEL Routine 02/07/2025 3:49 AM EDT VANCOMYCIN, TROUGH Timed 02/07/2025 3: [address] HEAD WO CONTRAST STAT 02/06/2025 7 :48 AM EDT MANUAL DIFFERENTIAL - SYSMEX WAM Routine 02/06/2025 5:31 AM EDT CBC WITH AUTO DIFFERENTIAL Routine 02/06/2025 5:31 AM EDT MAGNESIUM Routine 02/06/2025 5:31 AM EDT CBC AND DIFFERENTIAL Routine 02/06/2025 5:31 AM EDT BASIC METABOLIC PANEL Routine 02/06/2025 5:31 AM EDT ARTERIAL BLOOD GAS Routine 02/05/2025 3: 36 PM EDT POCT GLUCOSE BLOOD Routine 02/05/2025 2: [address] ANGIO CHEST WO AND/OR W CONTRAST STAT 02/05/2025 9:38 AM EDT Acute deep vein thrombosis (DVT) of proximal vein of left lower extremity (CMS/HCC V24, CMS/HCC V28) PATHOLOGIST REVIEW BLOOD SMEAR Routine 02/05/2025 8:48 AM EDT CBC WITH AUTO DIFFERENTIAL Routine 02/05/2025 8:48 AM EDT MAGNESIUM Routine 02/05/2025 8:48 AM EDT BASIC METABOLIC PANEL Routine 02/05/2025 8:48 AM EDT CBC AND DIFFERENTIAL Routine 02/05/2025 8:48 AM EDT ACTIVATED PARTIAL THROMBOPLASTIN TIME STAT 02/05/2025 3:44 AM EDT PROTHROMBIN TIME WITH INR STAT 02/05/2025 3:44 AM EDT TROPONIN I HIGH SENSITIVITY STAT 02/05/2025 2:46 AM EDT VAS US DUPLEX LOWER EXT VENOUS BILAT STAT 02/05/2025 2:35 AM EDT Bilateral lower extremity edema CT CHEST WO CONTRAST STAT 02/05/2025 1:47 AM EDT BECKER URINE CULTURE TUBE STAT 02/05/2025 1:42 AM EDT URINALYSIS WITH REFLEX MICROSCOPIC AND CULTURE STAT 02/05/2025 1:42 AM EDT URINALYSIS WITH REFLEX MICROSCOPIC AND CULTURE STAT 02/05/2025 1:42 AM EDT TROPONIN I HIGH SENSITIVITY STAT 02/05/2025 12:23 AM EDT RESPIRATORY VIRUS PANEL MOLECULAR STUDY STAT 02/04/2025 8:24 PM EDT MAGNESIUM Add-On 02/04/2025 8:22 PM EDT B-TYPE NATRIURETIC PEPTIDE STAT 02/04/2025 8:22 PM EDT CBC WITH AUTO DIFFERENTIAL STAT 02/04/2025 8:22 PM EDT BASIC METABOLIC PANEL STAT 02/04/2025 8:22 PM EDT CBC AND DIFFERENTIAL STAT 02/04/2025 8:22 PM EDT XR CHEST 2 VIEWS STAT 02/04/2025 5:44 PM EDT ECG 12-LEAD STAT 02/04/2025 5:30 PM EDT from Last 3 Months Results * (ABNORMAL) CBC auto differential (04/19/2025 3:22 PM EDT) Only the most recent of7 resultswithin the time period is included. [facility] Signature WBC 4.7(L) 4.8 - 10.8 K/mcL LAB HEMETOLOGY METHOD 04/19/2025 4:43 PM EDT [facility] RBC 3.60(L) 3.80 - 4.80 M/mcL LAB HEMETOLOGY METHOD 04/19/2025 4:43 PM EDT [facility] Hemoglobin 11.3(L) 11.5 - 16.0 g/dL LAB HEMETOLOGY [facility] Hematocrit 35.0 35.0 - 47.0 % LAB HEMETOLOGY METHOD 04/19/2025 4:43 [facility] MCV 97.2 79.0 - 98.0 FL LAB HEMETOLOGY METHOD 04/19/2025 4:43 PM EDT [facility] MCH 31.4 27.0 - 32.0 pcg LAB HEMETOLOGY METHOD 04/19/2025 4:43 PM EDT [facility] MCHC 32.3 32.0 - 37.0 g/dL LAB HEMETOLOGY METHOD 04/19/2025 4:43 [facility] RDW 13.0 11.0 - 15.0 % LAB HEMETOLOGY METHOD 04/19/2025 4:43 PM EDT [facility] Platelets 222 130 - 400 K/mcL LAB HEMETOLOGY METHOD 04/19/2025 4:43 PM EDT [facility] MPV 10.6 7.0 - 11.0 FL LAB HEMETOLOGY METHOD 04/19/2025 4:43 [facility] NRBC 0.0 <1.0 % LAB HEMETOLOGY METHOD 04/19/2025 4:43 PM EDT [facility] NRBC Absolute 0.00 <0.10 K/mcL LAB HEMETOLOGY METHOD 04/19/2025 4:43 PM EDT [facility] Neutrophils Relative 70.0 % LAB HEMETOLOGY METHOD 04/19/2025 4:43 [facility] Lymphocytes Relative 17.9 % LAB HEMETOLOGY METHOD 04/19/2025 4:43 PM [facility] Monocytes Relative 9.8 % LAB HEMETOLOGY METHOD 04/19/2025 4:43 PM [facility] Eosinophils Relative 1.7 % LAB HEMETOLOGY METHOD 04/19/2025 4:43 PM [facility] Basophils Relative 0.4 % LAB HEMETOLOGY METHOD 04/19/2025 4:43 PM [facility] Immature Granulocytes Relative 0.2 % LAB HEMETOLOGY METHOD 04/19/2025 4:43 PM [facility] Neutrophils Absolute 3.28 1.50 - 7.00 K/mcL LAB HEMETOLOGY METHOD 04/19/2025 4:43 PM [facility] Lymphocytes Absolute 0.84(L) 1.00 - 5.00 K/mcL LAB HEMETOLOGY METHOD 04/19/2025 4:43 PM [facility] Monocytes Absolute 0.46 0.20 - 1.00 K/mcL LAB HEMETOLOGY METHOD 04/19/2025 4:[facility] Eosinophils Absolute 0.08 0.00 - 0.50 K/mcL LAB HEMETOLOGY METHOD 04/19/2025 4:43 PM [facility] Basophils Absolute 0.02 0.00 - 0.20 K/mcL LAB HEMETOLOGY METHOD 04/19/2025 4:43 PM [facility] Immature Granulocytes Absolute 0.01 0.00 - 0.03 K/mcL LAB HEMETOLOGY METHOD 04/19/2025 4:43 PM EDT [facility] Blood Venous blood specimen / Unknown Venipuncture / Unknown 04/19/2025 3:22 PM EDT 04/19/2025 4:33 PM EDT Elder Jacobs MD LAB BLOOD ORDERABLES Final Result Performing Organization Address [facility]/ZIP Co de Phone Number [facility] [address] [place] [address], [place] [phone] * (ABNORMAL) Thyroid stimulating hormone (04/19/2025 3:22 PM EDT) Only the most recent of3 resultswithin the time period is included. TSH 4.26(H) 0.40 - 4.00 mcIU/mL LAB CHEMISTRY METHOD 04/19/2025 5:45 PM EDT [facility] Blood Venous blood specimen / Unknown Venipuncture / Unknown 04/19/2025 3:22 PM EDT 04/19/2025 4:32 PM EDT Elder Jacobs MD LAB BLOOD ORDERABLES Final Result Performing Organization Address [facility] Co de Phone Number [facility] [address] [place] [address], [place] [phone] * (ABNORMAL) Comprehensive metabolic panel (04/19/2025 3:22 PM EDT) Only the most recent of3 resultswithin the time period is included. Sodium 143 133 - 145 mmol/L LAB CHEMISTRY METHOD 04/19/2025 5:12 PM EDT [facility] Potassium 3.9 3.5 - 5.5 mmol/L LAB CHEMISTRY METHOD 04/19/2025 5:12 PM EDT [facility] Chloride 107 96 - 110 mmol/L LAB CHEMISTRY METHOD 04/19/2025 5:12 PM EDT [facility] CO2 30 21 - 32 mmol/L LAB CHEMISTRY METHOD 04/19/2025 5:12 PM [facility] Anion Gap 6 3 - 11 LAB CHEMISTRY METHOD 04/19/2025 5:12 PM [facility] Glucose 103(H) 70 - 100 mg/dL LAB CHEMISTRY METHOD 04/19/2025 5:12 PM [facility] BUN 22 5 - 25 mg/dL LAB CHEMISTRY METHOD 04/19/2025 5:12 PM [facility] Creatinine 0.90 0.50 - 1.10 mg/dL LAB CHEMISTRY METHOD 04/19/2025 5:12 PM [facility] eGFR 64 >=60 mL/min/1. 73m2 LAB CHEMISTRY METHOD 04/19/2025 5:12 PM [facility] Comment:Calculation based on the Chronic Kidney Disease Epidemiology Collaboration (CKD-EPI) equation refit without adjustment for race. BUN/Creatinine Ratio 24.4 LAB CHEMISTRY METHOD 04/19/2025 5:12 PM [facility] Calcium 9.1 8.5 - 10.5 mg/dL LAB CHEMISTRY METHOD 04/19/2025 5:12 PM [facility] AST (SGOT) 24 10 - 42 unit/L LAB CHEMISTRY METHOD 04/19/2025 5:12 PM [facility] ALT (SGPT) 14 10 - 60 unit/L LAB CHEMISTRY METHOD 04/19/2025 5:12 PM [facility] Alkaline Phosphatase 79 42 - 121 unit/L LAB CHEMISTRY METHOD 04/19/2025 5:12 PM [facility] Total Protein 6.4 6.0 - 8.0 g/dL LAB CHEMISTRY METHOD 04/19/2025 5:12 PM [facility] Albumin 3.0(L) 3.2 - 5.0 g/dL LAB CHEMISTRY METHOD 04/19/2025 5:12 PM EDT [facility] Total Bilirubin 0.3 0.0 - 1.4 mg/dL LAB CHEMISTRY METHOD 04/19/2025 5:12 PM EDT [facility] Blood Venous blood specimen / Unknown Venipuncture / Unknown 04/19/2025 3:22 PM EDT 04/19/2025 4:32 PM EDT us Elder Jacobs MD LAB BLOOD ORDERABLES Final Result [facility] [address] [place] [address], [place] [phone] * PET CT Skull to Mid Thigh Subsequent (03/08/2025 4:00 PM EDT) Anatomical Region Laterality Modality Body Radiographic Maliha ging 03/12/2025 7:00 AM EDT Impressions 03/12/2025 8:37 AM EDT 1. Interval increase in FDG activity of right paratracheal and subcarinal lymph nodes 2. Similar FDG avid right lower lobe lung mass and right lung opacities 3. Increasing FDG activity along the transverse colon and persistent but decreased activity within the anal canal. Underlying malignancy is not excluded especially along the transverse colon. Consider direct visualization. 4. Scattered FDG avid osseous lesions suspicious for metastatic disease Please note: The CT was acquired at a low radiation dose settings. The images are of nondiagnostic quality and used solely for purposes of attenuation correction and slice localization for the PET scan. If a diagnostic CT study is desired it must be ordered separately. -------- FINAL REPORT -------- Dictated By: Shey Del Rio Dictated Date: 03/12/2025 07:00 ET Assigned Physician: Shey Del Rio Reviewed and Electronically Signed By: Shey Del Rio Signed Date: 03/12/2025 08:37 ET Workstation ID: [id number] Transcribed By: Self Edit Transcribed Date: 03/12/2025 07:00 ET Narrative 03/12/2025 8:37 AM EDT INDICATION: Restaging metastatic lung cancer. Metastatic lung adenocarcinoma with right-sided malignant pleural effusion. TECHNIQUE: FDG PET-CT imaging was performed from the skull bases through the thighs in a single acquisition with data set reconstructed in axial, coronal, and sagittal planes at the computer workstation with fused data from both the PET imaging study and attenuation correction CT. The CT portion of the examination was done strictly for attenuation correction and is not a true diagnostic CT examination. DLP: 1078 mGy-cm Radiopharmaceutical: 10.7 mCi of F-18 FDG IV. Blood glucose: 111 mg/dl. COMPARISON: Prior PET/CT November [address] January 2025 FINDINGS: HEAD AND NECK: No abnormal FDG activity. THORAX: FDG avid right lower lobe mass SUV max 6 (previously 6) with underlying consolidation. Loculated right-sided pleural effusions measuring up to SUV Max 2.2. Right-sided pleural thickening and right-sided opacities measuring up to SUV Max 3.6 (previously 3.3). 7 mm pulmonary nodule in the left upper lobe SUV max 0.5. Interval increase in right paratracheal cira activity measuring up to SUV Max 4.1 (previously 2.7) and subcarinal SUV max 3.8 (previously 2.8). Mild residual right hilar FDG activity SUV max 2.9). No significant FDG avid axillary lymphadenopathy SUV max 0.9 on the left and 1.1 on the right (previously 1.6 on the right). ABDOMEN/PELVIS: Increased FDG activity along the redundant transverse colon SUV max 22.2 (previously 13.6).. Nonspecific FDG activity within the anal canal SUV max 4.9 (previously 6.6). Interval decrease in FDG activity within the sigmoid colon SUV Max 3.7 (previously 5). MUSCULOSKELETAL: Scattered sclerotic osseous lesions. Nonspecific focal activity within the L5 vertebral body anteriorly SUV max 3.1. Focal activity within T3 SUV Max 3.1, T5 SUV Max 3.0, T8 SUV Max 3.1 and posterior element of T11 SUV max 2.9. Procedure Note Shey Del Rio MD - 03/12/2025 INDICATION: Restaging metastatic lung cancer. Metastatic lungadenocarcinoma with right-sided malignant pleural effusion. TECHNIQUE: FDG PET-CT imaging was performed from the skull bases throughthe thighs in a single acquisition with data set reconstructed in axial,coronal, and sagittal planes at the computer workstation with fused datafrom both the PET imaging study and attenuation correction CT. The CTportion of the examination was done strictly for attenuation correctionand is not a true diagnostic CT examination. DLP: 1078 mGy-cm Radiopharmaceutical: 10.7 mCi of F-18 FDG IV. Blood glucose: 111 mg/dl. COMPARISON: Prior PET/CT November [address] January 2025 FINDINGS: HEAD AND NECK: No abnormal FDG activity. THORAX: FDG avid right lower lobe mass SUV max 6 (previously 6) withunderlying consolidation. Loculated right-sided pleural effusionsmeasuring up to SUV Max 2.2. Right-sided pleural thickening andright-sided opacities measuring up to SUV Max 3.6 (previously 3.3). 7 mm pulmonary nodule in the left upper lobe SUV max 0.5. Interval increase in right paratracheal cira activity measuring up to SUVMax 4.1 (previously 2.7) and subcarinal SUV max 3.8 (previously 2.8).Mild residual right hilar FDG activity SUV max 2.9). No significant FDG avid axillary lymphadenopathy SUV max 0.9 on the leftand 1.1 on the right (previously 1.6 on the right). ABDOMEN/PELVIS: Increased FDG activity along the redundant transversecolon SUV max 22.2 (previously 13.6).. Nonspecific FDG activity withinthe anal canal SUV max 4.9 (previously 6.6). Interval decrease in FDG activity within the sigmoid colon SUV Max 3.7(previously 5). MUSCULOSKELETAL: Scattered sclerotic osseous lesions. Nonspecific focalactivity within the L5 vertebral body anteriorly SUV max 3.1. Focalactivity within T3 SUV Max 3.1, T5 SUV Max 3.0, T8 SUV Max 3.1 andposterior element of T11 SUV max 2.9. IMPRESSION: 1. Interval increase in FDG activity of right paratracheal and subcarinallymph nodes 2. Similar FDG avid right lower lobe lung mass and right lung opacities 3. Increasing FDG activity along the transverse colon and persistent butdecreased activity within the anal canal. Underlying malignancy is notexcluded especially along the transverse colon. Consider directvisualization. 4. Scattered FDG avid osseous lesions suspicious for metastatic disease Please note: The CT was acquired at a low radiation dose settings. The images are ofnondiagnostic quality and used solely for purposes of attenuationcorrection and slice localization for the PET scan. If a diagnostic CTstudy is desired it must be ordered separately. -------- FINAL REPORT -------- Dictated By: Shey Del Rio Dictated Date: 03/12/2025 07:00 ET Assigned Physician: Shey Del Rio Reviewed and Electronically Signed By: Shey Del Rio Signed Date: 03/12/2025 08:37 ET Workstation ID: [id number] Transcribed By: Self Edit Transcribed Date: 03/12/2025 07:00 ET us Elder Jacobs MD IMG NM PROCEDURES Final Res ult * (ABNORMAL) Prothrombin time with INR (02/15/2025 2:52 PM EDT) Only the most recent of2 resultswithin the time period is included. Pathologist [facility] Protime 17.3(H) 10.6 - 13.9 sec LAB COAGULATION METHOD 02/15/2025 4:20 PM EDT [facility] INR 1.4 LAB COAGULATION METHOD 02/15/2025 4:20 PM EDT [facility] Blood Venous blood specimen / Unknown Venipuncture / Unknown 02/15/2025 2:52 PM EDT 02/15/2025 4:04 PM EDT us Yesneia Knight MD LAB BLOOD ORDERABLES Final Result [facility] [address] [place] [address], [place] [phone] * (ABNORMAL) Basic metabolic panel (02/15/2025 2:52 PM EDT) Only the most recent of5 resultswithin the time period is included. Pathologist [facility] Sodium 142 133 - 145 mmol/L LAB CHEMISTRY METHOD 02/15/2025 4:49 PM EDT [facility] Potassium 3.8 3.5 - 5.5 mmol/L LAB CHEMISTRY METHOD 02/15/2025 4:49 PM [facility] Chloride 105 96 - 110 mmol/L LAB CHEMISTRY METHOD 02/15/2025 4:49 PM [facility] CO2 33(H) 21 - 32 mmol/L LAB CHEMISTRY METHOD 02/15/2025 4:49 PM [facility] Anion Gap 4 3 - 11 LAB CHEMISTRY METHOD 02/15/2025 4:49 PM [facility] Glucose 178(H) 70 - 100 mg/dL LAB CHEMISTRY METHOD 02/15/2025 4:49 PM [facility] BUN 12 5 - 25 mg/dL LAB CHEMISTRY METHOD 02/15/2025 4:49 PM [facility] Creatinine 0.96 0.50 - 1.10 mg/dL LAB CHEMISTRY METHOD 02/15/2025 4:49 PM [facility] eGFR 59(L) >=60 mL/min/1. 73m2 LAB CHEMISTRY METHOD 02/15/2025 4:49 PM [facility] Comment:Calculation based on the Chronic Kidney Disease Epidemiology Collaboration (CKD-EPI) equation refit without adjustment for race. BUN/Creatinine Ratio 12.5 LAB CHEMISTRY METHOD 02/15/2025 4:49 PM [facility] Calcium 8.8 8.5 - 10.5 mg/dL LAB CHEMISTRY METHOD 02/15/2025 4:49 PM [facility] Blood Venous blood specimen / Unknown Venipuncture / Unknown 02/15/2025 2:52 PM EDT 02/15/2025 4:04 PM EDT us Yesenia Knight MD LAB BLOOD ORDERABLES Final Result [facility] [address] [place] [address], * ECG-Annotated (02/08/2025) us Provider Onbase MD ECG ORDERABLES Final Result * POCT Glucose, blood (02/07/2025 4:44 PM EDT) Only the most recent of4 resultswithin the time period is included. [facility] Glucose POCT 84 70 - 100 mg/dL 02/07/2025 4:44 PM EDT [facility] Blood Capillary blood specimen / Unknown 02/07/2025 4:44 PM EDT 02/07/2025 4:45 PM EDT Amira Pineda MD LAB POINT OF CARE TE ST DOCKED DEVICE UNSOLICITED RESULTS Final Result [facility] [address] [place] [address], * (ABNORMAL) Complete blood count (02/07/2025 3:50 AM EDT) [facility] WBC 1.4(LL) 4.8 - 10.8 K/mcL LAB HEMETOLOGY METHOD 02/07/2025 4:14 AM [facility] RBC 2.70(L) 3.80 - 4.80 M/mcL LAB HEMETOLOGY METHOD 02/07/2025 4:14 AM T [facility] Hemoglobin 9.2(L) 11.5 - 16.0 g/dL LAB HEMETOLOGY METHOD 02/07/2025 4:14 AM [facility] Hematocrit 29.1(L) 35.0 - 47.0 % LAB HEMETOLOGY METHOD 02/07/2025 4:14 AM T [facility] MCV 107.0(H) 79.0 - 98.0 FL LAB HEMETOLOGY METHOD 02/07/2025 4:14 AM EDT [facility] MCH 33.8(H) 27.0 - 32.0 pcg LAB HEMETOLOGY METHOD 02/07/2025 4:14 AM EDT [facility] MCHC 31.6(L) 32.0 - 37.0 g/dL LAB HEMETOLOGY METHOD 02/07/2025 4:14 AM EDT [facility] RDW 14.6 11.0 - 15.0 % LAB HEMETOLOGY METHOD 02/07/2025 4:14 AM EDT [facility] Platelets 111(L) 130 - 400 K/mcL LAB HEMETOLOGY METHOD 02/07/2025 4:14 AM EDT [facility] MPV 10.6 7.0 - 11.0 FL LAB HEMETOLOGY METHOD 02/07/2025 4:14 AM EDT [facility] NRBC 0.0 <1.0 % LAB HEMETOLOGY METHOD 02/07/2025 4:14 AM EDT [facility] NRBC Absolute 0.00 <0.10 K/mcL LAB HEMETOLOGY METHOD 02/07/2025 4:14 AM EDT [facility] Blood Venous blood specimen / Unknown Venipuncture / Unknown 02/07/2025 3:50 AM EDT 02/07/2025 4:00 AM EDT us Bryson Forbes MD LAB BLOOD ORDERABLES Final Re sult [facility] [address] [place] [address], * (ABNORMAL) Magnesium (02/07/2025 3:49 AM EDT) Only the most recent of4 resultswithin the time period is included. Magnesium 1.8(L) 1.9 - 2.6 mg/dL LAB CHEMISTRY METHOD 02/07/2025 5:19 AM EDT [facility] Blood Venous blood specimen / Unknown Venipuncture / Unknown 02/07/2025 3:49 AM EDT 02/07/2025 4:00 AM EDT Bryson Forbes MD LAB BLOOD ORDERABLES Final Re sult Performing Organization Address [facility] Co de Phone Number [facility] [address] [place] [address], * (ABNORMAL) Vancomycin, trough (02/07/2025 3:49 AM EDT) Vancomycin Trough 23.8(H) 10.0 - 20.0 mcg/mL LAB CHEMISTRY METHOD 02/07/2025 5:19 AM EDT [facility] Blood Venous blood specimen / Unknown Venipuncture / Unknown 02/07/2025 3:49 AM EDT 02/07/2025 4:00 AM EDT Lj TAVERAS LAB BLOOD ORDERABLES Final Res ult Performing Organization Address [facility] de Phone Number [facility] [address] [place] [address], [place] [phone] * CT Head wo Contrast (02/06/2025 7:48 AM EDT) Anatomical Region Laterality Modality Head and Neck Computed Tomogra phy 02/06/2025 8:48 AM EDT Impressions 02/06/2025 8:52 AM EDT No acute intracranial abnormality -------- FINAL REPORT -------- Dictated By: HAO CHA Dictated Date: 02/06/2025 08:48 ET Assigned Physician: HAO CHA Reviewed and Electronically Signed By: HAO CHA Signed Date: 02/06/2025 08:52 ET Workstation ID: [id number] Transcribed By: Self Edit Transcribed Date: 02/06/2025 08:48 ET Narrative 02/06/2025 8:52 AM EDT PROCEDURE: HEAD CT INDICATION: Mental status changes, pain TECHNIQUE: CT of the head without intravenous contrast. Multiplanar reformats. The examination was performed utilizing dose reduction techniques. Total DLP 809 COMPARISON: No priors available. FINDINGS: No acute territorial infarct, mass effect, or intracranial hemorrhage. Moderate scattered periventricular and subcortical white matter hypodensities are most likely related to chronic small vessel ischemic change. Ventricles, sulci, and cisterns are normal in size configuration. No hydrocephalus. Mucosal thickening seen throughout the sinuses with atelectatic right maxillary sinus. Mastoid air cells are clear. No scalp hematoma or skull fracture. Procedure Note Hao Cha MD - 02/06/2025 PROCEDURE: HEAD CT INDICATION: Mental status changes, pain TECHNIQUE: CT of the head without intravenous contrast. Multiplanarreformats. The examination was performed utilizing dose reductiontechniques. Total DLP 809 COMPARISON: No priors available. FINDINGS: No acute territorial infarct, mass effect, or intracranial hemorrhage. Moderate scattered periventricular and subcortical white matterhypodensities are most likely related to chronic small vessel ischemicchange. Ventricles, sulci, and cisterns are normal in size configuration. Nohydrocephalus. Mucosal thickening seen throughout the sinuses with atelectatic rightmaxillary sinus. Mastoid air cells are clear. No scalp hematoma or skull fracture. IMPRESSION: No acute intracranial abnormality -------- FINAL REPORT -------- Dictated By: HAO CHA Dictated Date: 02/06/2025 08:48 ET Assigned Physician: HAO CHA Reviewed and Electronically Signed By: HAO CHA Signed Date: 02/06/2025 08:52 ET Workstation ID: [id number] Transcribed By: Self Edit Transcribed Date: 02/06/2025 08:48 ET Ekaterina Nicole MD [facility] CT PROCEDURES Final Result * (ABNORMAL) Manual differential (02/06/2025 5:31 AM EDT) Neutrophils % 54.0 % LAB HEMETOLOGY METHOD 02/06/2025 7:17 AM EDT [facility] Lymphocytes % 26.0 % LAB HEMETOLOGY METHOD 02/06/2025 7:17 AM [facility] Reactive Lymphocyte 1.00 % LAB HEMETOLOGY METHOD 02/06/2025 7:17 AM [facility] Monocytes % 12.0 % LAB HEMETOLOGY METHOD 02/06/2025 7:17 AM [facility] Eosinophils % 4.0 % LAB HEMETOLOGY METHOD 02/06/2025 7:17 AM [facility] Basophils % 3.0 % LAB HEMETOLOGY METHOD 02/06/2025 7:17 AM [facility] Neutrophils Absolute Manual 0.76(L) 1.50 - 7.00 K/mcL LAB HEMETOLOGY METHOD 02/06/2025 7:17 AM [facility] Lymphocytes Absolute 0.36(L) 1.00 - 5.00 K/mcL LAB HEMETOLOGY METHOD 02/06/2025 7:17 AM [facility] Reactive Lymph Abs Manual 0.01(H) 0.00 - 0.00 lym LAB HEMETOLOGY METHOD 02/06/2025 7:17 AM [facility] Monocytes Absolute Manual 0.17(L) 0.20 - 1.00 K/mcL LAB HEMETOLOGY METHOD 02/06/2025 7:17 AM [facility] Eosinophils Absolute Manual 0.06 0.00 - 0.50 K/mcL LAB HEMETOLOGY METHOD 02/06/2025 7:17 AM [facility] Basophils Absolute Manual 0.04 0.00 - 0.20 K/mcL LAB HEMETOLOGY METHOD 02/06/2025 7:17 AM [facility] Rbc Morphology See comment( A) Consistent with indices, Normal for [place] LAB HEMETOLOGY METHOD 02/06/2025 7:17 AM [facility] Comment:RBC: Morphology agre es with CBC Platelet Morphology - WAM See Note(A) Normal LAB HEMETOLOGY METHOD 02/06/2025 7:17 AM EDT [facility] Comment:PLT: Normal Blood Venous blood specimen / Unknown Venipuncture / Unknown 02/06/2025 5:31 AM EDT 02/06/2025 6:26 AM EDT us Ekaterina Nicole MD LAB BLOOD ORDERABLES Final Resul t [facility] [address] [place] [address], [place] [phone] * (ABNORMAL) Arterial blood gas (02/05/2025 3:36 PM EDT) pH, Arterial 7.48(H) 7.35 - 7.45 pH 02/05/2025 3:48 PM EDT [facility] pCO2, Arterial 42 35 - 45 mmHg 02/05/2025 3:48 PM EDT [facility] pO2, Arterial 64(L) 80 - 100 mmHg 02/05/2025 3:48 PM EDT [facility] HCO3, Arterial 30.4(H) 22.0 - 26.0 mmol/L 02/05/2025 3:48 PM EDT [facility] O2 Sat, Arterial 94.3(L) 95.0 - 98.0 % 02/05/2025 3:48 PM EDT [facility] Base Excess, Arterial 7.1(H) -2.0 - 2.0 mmol/L 02/05/2025 3:48 PM EDT [facility] Rommel Test Pass Pass, Unresponsi ve, Line 02/05/2025 3:48 PM EDT [facility] FIO2 21.00 02/05/2025 3:48 PM EDT [facility] Blood Arterial blood specimen / Unknown Arterial Puncture / Unknown 02/05/2025 3:36 PM EDT 02/05/2025 3:42 PM EDT us Ekaterina Nicole MD LAB BLOOD ORDERABLES Final Resul t [facility] [address] [place] [address], [place] [phone] * CT Angio Chest wo and/or w Contrast (02/05/2025 9:38 AM EDT) Anatomical Region Laterality Modality Body Computed Tomogra phy 02/05/2025 10:1 3 AM EDT Impressions 02/05/2025 10:21 AM EDT No pulmonary arterial emboli. Unchanged loculated right hydropneumothorax with regions of pleural thickening/irregularity which may be infectious/inflammatory or neoplastic. Nodular septal thickening throughout the right lung raising the possibility of metastatic lymphangitic carcinomatosis. Multiple unchanged indeterminate pulmonary nodules and consolidative opacities which may be infectious/inflammatory or neoplastic. -------- FINAL REPORT -------- Dictated By: HAO CHA Dictated Date: 02/05/2025 10:13 ET Assigned Physician: HAO CHA Reviewed and Electronically Signed By: HAO CHA Signed Date: 02/05/2025 10:21 ET Workstation ID: [id number] Transcribed By: Self Edit Transcribed Date: 02/05/2025 10:13 ET Narrative 02/05/2025 10:21 AM EDT PROCEDURE: Chest CTA INDICATION: Deep vein thrombosis, pulmonary embolism TECHNIQUE: Chest CTA with intravenous administration of 80cc ISOVUE 370. Multi planar reformats were created and interpreted. The examination was performed utilizing dose reduction techniques.3-D or MIP images were produced with postprocessing on an independent computer workstation. Total DLP 507 COMPARISON: Chest CT 02/05/2025 1:45 AM FINDINGS: CTA: No pulmonary arterial emboli. Thoracic aorta is normal in size. No dissection. Mild coronary artery calcifications. Exam was not tailored to evaluate the coronary arteries. LUNGS/PLEURA: Central airways are patent. Small loculated right hydropneumothorax is similar compared to the recent prior chest CT. Lungs are unchanged compared to the recent prior exam with nodular septal thickening, multifocal pleural thickening/irregularity, and multiple pulmonary nodules again noted. Consolidative opacity in the right middle and lower lobes is unchanged. Masslike opacity in the right lower lobe measures 31 x 24 mm, unchanged. MEDIASTINUM: Thyroid gland is unchanged. Mediastinal and right hilar lymphadenopathy is unchanged. Cardiac chambers are normal in size. No pericardial effusion. Esophagus is normal. CHEST WALL: Prominent right axillary lymph nodes are unchanged. Right upper extremity PICC terminates in the SVC. UPPER ABDOMEN:Punctate nonobstructive left upper pole calculus. BONES: Bones are similar compared to the recent prior exam. Procedure Note Hao Cha MD - 02/05/2025 PROCEDURE: Chest CTA INDICATION: Deep vein thrombosis, pulmonary embolism TECHNIQUE: Chest CTA with intravenous administration of 80cc ISOVUE 370.Multi planar reformats were created and interpreted. The examination wasperformed utilizing dose reduction techniques.3-D or MIP images wereproduced with postprocessing on an independent computer workstation.Total DLP 507 COMPARISON: Chest CT 02/05/2025 1:45 AM FINDINGS: CTA: No pulmonary arterial emboli. Thoracic aorta is normal in size. Nodissection. Mild coronary artery calcifications. Exam was not tailoredto evaluate the coronary arteries. LUNGS/PLEURA: Central airways are patent. Small loculated righthydropneumothorax is similar compared to the recent prior chest CT. Lungsare unchanged compared to the recent prior exam with nodular septalthickening, multifocal pleural thickening/irregularity, and multiplepulmonary nodules again noted. Consolidative opacity in the right middleand lower lobes is unchanged. Masslike opacity in the right lower lobemeasures 31 x 24 mm, unchanged. MEDIASTINUM: Thyroid gland is unchanged. Mediastinal and right hilarlymphadenopathy is unchanged. Cardiac chambers are normal in size. Nopericardial effusion. Esophagus is normal. CHEST WALL: Prominent right axillary lymph nodes are unchanged. Rightupper extremity PICC terminates in the SVC. UPPER ABDOMEN:Punctate nonobstructive left upper pole calculus. BONES: Bones are similar compared to the recent prior exam. IMPRESSION: No pulmonary arterial emboli. Unchanged loculated right hydropneumothorax with regions of pleuralthickening/irregularity which may be infectious/inflammatory orneoplastic. Nodular septal thickening throughout the right lung raising thepossibility of metastatic lymphangitic carcinomatosis. Multiple unchanged indeterminate pulmonary nodules and consolidativeopacities which may be infectious/inflammatory or neoplastic. -------- FINAL REPORT -------- Dictated By: HAO CHA Dictated Date: 02/05/2025 10:13 ET Assigned Physician: HAO CHA Reviewed and Electronically Signed By: HAO CHA Signed Date: 02/05/2025 10:21 ET Workstation ID: [id number] Transcribed By: Self Edit Transcribed Date: 02/05/2025 10:13 ET Lj TAVERAS IMG CT PROCEDURES Final Result * Pathology review, blood smear (02/05/2025 8:48 AM EDT) Pathologist Review Blood Smear Anemia with macrocytic red blood cells. Possible causes include medication effects, B12/folate deficiency, liver disease, hypothyoidism, myelodysplasia or other etiologies. Neutropenia: smear not diagnostic of etiology. Platelets are in the low normal range, with rare small platelet clumps identified. 02/07/2025 9:17 AM EDT [facility] Blood Venous blood specimen / Unknown Venipuncture / Unknown 02/05/2025 8:48 AM EDT 02/05/2025 8:51 AM EDT Ekaterina Nicole MD LAB BLOOD ORDERABLES Final Resul t [facility] [address] [place] [address], * Activated Partial Thromboplastin Time - STAT (02/05/2025 3:44 AM EDT) aPTT 35.4 24.1 - 39.3 sec LAB COAGULATION METHOD 02/05/2025 4:07 AM EDT [facility] Blood Venous blood specimen / Unknown Venipuncture / Unknown 02/05/2025 3:44 AM EDT 02/05/2025 3:48 AM EDT Shaw Lazo MD LAB BLOOD ORDERABLES Janet l Result Performing Organization Address [facility] Co de Phone Number [facility] [address] [place] [address], [place] [phone] * Troponin I high sensitivity (02/05/2025 2:46 AM EDT) Only the most recent of2 resultswithin the time period is included. [facility] High Sensitivity Troponin I 15 <=54 ng/L LAB CHEMISTRY METHOD 02/05/2025 3:32 AM EDT [facility] Blood Venous blood specimen / Unknown Venipuncture / Unknown 02/05/2025 2:46 AM EDT 02/05/2025 3:02 AM EDT Narrative [facility] - 02/05/2025 3:32 AM EDT High levels of biotin in samples may falsely decrease hsTroponin values. Use caution when interpreting hsTroponin results in patients taking biotin who exhibit renal impairment (eGFR <60) or in patients taking more than 20 mg/day of biotin. us Lacey Eli MD LAB BLOOD ORDERABLES Fin al Result Performing Organization Address [facility]/ZIP Co de Phone Number [facility] [address] [place] [address], [place] [phone] * Vascular US Duplex Lower Extremity Venous Bilateral (02/05/2025 2:35 AM EDT) Anatomical Region Laterality Modality Vascular, Abdomen Ultrasound 02/06/2025 10:1 5 AM EDT Impressions 02/06/2025 10:17 AM EDT OCCLUSIVE THROMBUS IN THE MIDPORTION OF ONE OF THE LEFT POSTERIOR TIBIAL VEINS. NO OTHER VENOUS THROMBOSIS IN THE LOWER EXTREMITIES. -------- FINAL REPORT -------- Dictated By: HAO CHA Dictated Date: 02/06/2025 10:15 ET Assigned Physician: HAO CHA Reviewed and Electronically Signed By: HAO CHA Signed Date: 02/06/2025 10:17 ET Workstation ID: [id number] Transcribed By: Self Edit Transcribed Date: 02/06/2025 10:15 ET Narrative 02/06/2025 10:17 AM EDT PROCEDURE: VAS US DUPLEX LOWER EXT VENOUS BILAT INDICATION: Edema, swelling TECHNIQUE: 2-D and color Doppler imaging of the lower extremity venous vasculature with compression and augmentation maneuvers. COMPARISON: No priors available. FINDINGS: RIGHT: There is normal flow, compression, and augmentation from the common femoral through the popliteus. Visualized calf veins are patent. LEFT: There is normal flow, compression, and augmentation from the common femoral through the popliteus. Occlusive thrombus in the midportion of one of the posterior tibial veins. Remainder the visualized calf veins are patent. Procedure Note Hao Cha MD - 02/06/2025 PROCEDURE: VAS US DUPLEX LOWER EXT VENOUS BILAT INDICATION: Edema, swelling TECHNIQUE: 2-D and color Doppler imaging of the lower extremity venousvasculature with compression and augmentation maneuvers. COMPARISON: No priors available. FINDINGS: RIGHT: There is normal flow, compression, and augmentation from the commonfemoral through the popliteus. Visualized calf veins are patent. LEFT: There is normal flow, compression, and augmentation from the commonfemoral through the popliteus. Occlusive thrombus in the midportion ofone of the posterior tibial veins. Remainder the visualized calf veinsare patent. IMPRESSION: OCCLUSIVE THROMBUS IN THE MIDPORTION OF ONE OF THE LEFT POSTERIOR TIBIALVEINS. NO OTHER VENOUS THROMBOSIS IN THE LOWER EXTREMITIES. -------- FINAL REPORT -------- Dictated By: HAO CHA Dictated Date: 02/06/2025 10:15 ET Assigned Physician: HAO CHA Reviewed and Electronically Signed By: HAO CHA Signed Date: 02/06/2025 10:17 ET Workstation ID: [id number] Transcribed By: Self Edit Transcribed Date: 02/06/2025 10:15 ET us Lacey Eli MD CV VASCULAR PROCEDURES F inal Result * CT Chest wo Contrast (02/05/2025 1:47 AM EDT) Anatomical Region Laterality Modality Body Computed Tomogra phy 02/05/2025 3:09 AM EDT Impressions 02/05/2025 3:09 AM EDT Impression: 1. Small, loculated right pleural effusion present with interval removal of the previously demonstrated right-sided chest tube. There are small foci of superimposed gas within the right pleural fluid which may be related to the previous right-sided chest tube or sequela of superimposed infection/empyema. 2. Pleural thickening present throughout the right lung with ill-defined density of the right perihilar region and bilateral pulmonary nodules. There are borderline prominent right axillary and mediastinal lymph nodes with sclerotic foci at the T3 and T8 vertebral bodies. These findings are most consistent with sequela of malignancy/metastatic disease. 3. Small pericardial effusion. This document has been electronically signed by: Lj Box MD on 02/05/2025 03:09:06 Narrative 02/05/2025 3:09 AM EDT INDICATION: Chest pain or SOB, pleurisy or effusion suspected CT chest without contrast Comparison: CT - CT CHEST WO CONTRAST - 01/12/25 18:15 EDT Findings: Normal heart,size. Small pericardial effusion. Coronary artery calcifications are present. No thoracic aorta aneurysm. There are borderline prominent mediastinal and right axillary lymph nodes. There is interval removal of the previously demonstrated right-sided chest tube. Small, loculated right pleural effusion present with small foci of superimposed gas. No overt right pneumothorax. No left pneumothorax. Interstitial prominence and mild ground-glass opacities are identified within the right lung, greatest inferiorly. Minimal subsegmental atelectasis versus scarring present at the inferior aspect of the lingula. There are bilateral pulmonary nodules with ill-defined right perihilar density. Pleural thickening identified throughout the right lung, with involvement of the mediastinal surface. Sclerotic foci are visualized at the T3 and T8 vertebral bodies. Small calcification present at the left kidney which may represent a parenchymal calcification or left renal calculus. No acute fractures. Procedure Note Lj Box MD - 02/05/2025 INDICATION: Chest pain or SOB, pleurisy or effusion suspected CT chest without contrast Comparison: CT - CT CHEST WO CONTRAST - 01/12/25 18:15 EDT Findings: Normal heart,size. Small pericardial effusion. Coronary artery calcifications are present. No thoracic aorta aneurysm. There are borderline prominent mediastinaland right axillary lymph nodes. There is interval removal of the previously demonstrated right-sidedchest tube. Small, loculated right pleural effusion present with small foci of superimposed gas. No overt right pneumothorax. No left pneumothorax. Interstitial prominence and mild ground-glass opacities are identified within the right lung, greatest inferiorly. Minimal subsegmental atelectasis versus scarring present at the inferior aspect of thelingula. There are bilateral pulmonary nodules with ill-defined right perihilar density. Pleural thickening identified throughout the right lung, with involvement of the mediastinal surface. Sclerotic foci are visualized at the T3 and T8 vertebral bodies. Small calcification present at the left kidney which may represent a parenchymal calcification or left renal calculus. No acute fractures. IMPRESSION: Impression: 1. Small, loculated right pleural effusion present with interval removal of the previously demonstrated right-sided chest tube. There are small foci of superimposed gas within the right pleural fluid which may be related to the previous right-sided chest tube or sequela ofsuperimposed infection/empyema. 2. Pleural thickening present throughout the right lung with ill-defined density of the right perihilar region and bilateral pulmonary nodules. There are borderline prominent right axillary and mediastinal lymphnodes with sclerotic foci at the T3 and T8 vertebral bodies. These findingsare most consistent with sequela of malignancy/metastatic disease. 3. Small pericardial effusion. This document has been electronically signed by: Lj Box MD on 02/05/2025 03:09:06 Lacey Mee Eli MD IM CT PROCEDURES Final Result * Urinalysis with reflex microscopic and culture (02/05/2025 1:42 AM EDT) Specific [place] Urine 1.009 1.003 - 1.030 LAB URINALYSIS - AUTOMATED METHOD 02/05/2025 2:11 AM EDT [facility] pH, Urine 6.5 5.0 - 8.0 pH LAB URINALYSIS - AUTOMATED METHOD 02/05/2025 2:11 AM T [facility] Leukocytes, Urine Negative Negative LAB URINALYSIS - AUTOMATED METHOD 02/05/2025 2:11 AM [facility] Nitrite, Urine Negative Negative LAB URINALYSIS - AUTOMATED METHOD 02/05/2025 2:11 AM [facility] Protein, Urine Negative <=Trace mg/dL LAB URINALYSIS - AUTOMATED METHOD 02/05/2025 2:11 AM [facility] Glucose, Urine Negative Negative mg/dL LAB URINALYSIS - AUTOMATED METHOD 02/05/2025 2:11 AM [facility] Ketones, Urine Negative Negative mg/dL LAB URINALYSIS - AUTOMATED METHOD 02/05/2025 2:11 AM [facility] Urobilinogen, Urine 0.2 0.2 - 1.0 mg/dL LAB URINALYSIS - AUTOMATED METHOD 02/05/2025 2:11 AM [facility] Bilirubin, Urine Negative Negative LAB URINALYSIS - AUTOMATED METHOD 02/05/2025 2:11 AM [facility] Blood, Urine Negative Negative LAB URINALYSIS - AUTOMATED METHOD 02/05/2025 2:11 AM [facility] Urine Urine specimen obtained by clean catch procedure / Unknown Non-blood Collection / Unknown 02/05/2025 1:42 AM EDT 02/05/2025 2:05 AM EDT us Lacey Eli MD LAB URINE ORDERABLES Fin al Result [facility] [address] [place] [address], * Becker urine culture tube (02/05/2025 1:42 AM EDT) [facility] Extra Tube Hold for add-ons. 02/08/2025 5:01 AM EDT [facility] Comment:Auto resulted. Urine Urine specimen obtained by clean catch procedure / Unknown Non-blood Collection / Unknown 02/05/2025 1:42 AM EDT 02/05/2025 2:05 AM EDT us Lacey Eli MD LAB URINE ORDERABLES Fin al Result [facility] [address] [place] [address], * Respiratory virus panel molecular study (02/04/2025 8:24 PM EDT) [facility] Adenovirus Detection by PCR Not Detected Not Detected LAB MICROBIOLOGY METHOD 02/04/2025 9:27 PM EDT [facility] Influenza A PCR Not Detected Not Detected LAB MICROBIOLOGY METHOD 02/04/2025 9:27 PM EDT [facility] Influenza B PCR Not Detected Not Detected LAB MICROBIOLOGY METHOD 02/04/2025 9:27 PM EDT [facility] Coronavirus 229E Not Detected Not Detected LAB MICROBIOLOGY METHOD 02/04/2025 9:27 PM EDT [facility] Coronavirus HKU1 Not Detected Not Detected LAB MICROBIOLOGY METHOD 02/04/2025 9:27 PM EDT [facility] Coronavirus OC43 Not Detected Not Detected LAB MICROBIOLOGY METHOD 02/04/2025 9:27 PM EDT [facility] Coronavirus NL63 Not Detected Not Detected LAB MICROBIOLOGY METHOD 02/04/2025 9:27 PM EDT [facility] Parainfluenza Virus 1 Not Detected Not Detected LAB MICROBIOLOGY METHOD 02/04/2025 9:27 PM EDT [facility] Parainfluenza Virus 2 Not Detected Not Detected LAB MICROBIOLOGY METHOD 02/04/2025 9:27 PM EDT [facility] Parainfluenza Virus 3 Not Detected Not Detected LAB MICROBIOLOGY METHOD 02/04/2025 9:27 PM EDT [facility] Parainfluenza Virus 4 Not Detected Not Detected LAB MICROBIOLOGY METHOD 02/04/2025 9:27 PM EDT [facility] RSV PCR Not Detected Not Detected LAB MICROBIOLOGY METHOD 02/04/2025 9:27 PM EDT [facility] Human Metapneumovirus A and B Not Detected Not Detected LAB MICROBIOLOGY METHOD 02/04/2025 9:27 PM EDT [facility] Rhinovirus/Entero virus Not Detected Not Detected LAB MICROBIOLOGY METHOD [facility] Bordetella pertussis Not Detected Not Detected LAB MICROBIOLOGY METHOD [facility]20[facility] Bordetella parapertussis Not Detected Not Detected LAB MICROBIOLOGY METHOD [facility]/04[facility]2025 [facility] Mycoplasma pneumo by PCR Not Detected Not Detected LAB MICROBIOLOGY METHOD 02/04[facility]2025 [facility] Chlamydia pneumoniae Not Detected Not Detected LAB MICROBIOLOGY METHOD 02/04/2025 9:27 PM [facility] SARS COV-2 Not Detected Not Detected LAB MICROBIOLOGY METHOD 02/04[facility]2025 [facility] Swab Both anterior nares / Unknown Non-blood Collection / Unknown 02/04/2025 8:24 PM EDT 02/04/2025 8:31 PM EDT [facility] - 02/04/2025 9:27 PM EDT Testing was performed using the Torrential Respiratory Pathogen PCR Assay. All results must be correlated with the clinical findings. Results should not be used as the sole basis for diagnosis. False Negative results may occur from the presence of sequence variants in the region targeted by the assay or the presence of inhibitors. Results may be affected by concurrent antiviral/antimicrobial therapy or levels of organisms that are below the limit of detection. us Hernando Goodman MD LAB MICROBIOLOGY - GENERAL O RDERABLES Final Result Performing Organization Address [facility]/ZIP Co de Phone Number [facility] [address] [place] [address], [place] [phone] * (ABNORMAL) B-type natriuretic peptide (02/04/2025 8:22 PM EDT) BNP 147(H) <=100 pcg/mL LAB CHEMISTRY METHOD 02/04/2025 9:10 PM EDT [facility] Blood Venous blood specimen / Unknown Venipuncture / Unknown 02/04/2025 8:22 PM EDT 02/04/2025 8:31 PM EDT us Hernando Goodman MD LAB BLOOD ORDERABLES Final R esult Performing Organization Address [facility] Co de Phone Number [facility] [address] [place] [address], [place] [phone] * XR Chest 2 Views (02/04/2025 5:44 PM EDT) Anatomical Region Laterality Modality Body Radiographic Maliha ging 02/04/2025 6:19 PM EDT Impressions 02/04/2025 6:20 PM EDT FINDINGS/IMPRESSION: Right chest tube has been removed. Right upper extremity PICC terminates near the cavoatrial junction. Small right pleural effusion with adjacent opacity, likely atelectasis/scarring. No pneumothorax. Left lung is relatively clear. Cardiac silhouette and bones are stable compared to the prior exam. -------- FINAL REPORT -------- Dictated By: HAO CHA Dictated Date: 02/04/2025 18:19 ET Assigned Physician: HAO CHA Reviewed and Electronically Signed By: HAO CHA Signed Date: 02/04/2025 18:20 ET Workstation ID: [id number] Transcribed By: Self Edit Transcribed Date: 02/04/2025 18:19 ET Narrative 02/04/2025 6:20 PM EDT XR CHEST 2 VIEWS INDICATION: Dyspnea TECHNIQUE: XR CHEST 2 VIEWS COMPARISON: 01/19/2025 Procedure Note Hao Cha MD - 02/04/2025 XR CHEST 2 VIEWS INDICATION: Dyspnea TECHNIQUE: XR CHEST 2 VIEWS COMPARISON: 01/19/2025 IMPRESSION: FINDINGS/IMPRESSION: Right chest tube has been removed. Right upperextremity PICC terminates near the cavoatrial junction. Small rightpleural effusion with adjacent opacity, likely atelectasis/scarring. Nopneumothorax. Left lung is relatively clear. Cardiac silhouette andbones are stable compared to the prior exam. -------- FINAL REPORT -------- Dictated By: HAO CHA Dictated Date: 02/04/2025 18:19 ET Assigned Physician: HAO CHA Reviewed and Electronically Signed By: HAO CHA Signed Date: 02/04/2025 18:20 ET Workstation ID: [id number] Transcribed By: Self Edit Transcribed Date: 02/04/2025 18:19 ET us Hernando Goodman MD IMG XR PROCEDURES Final Resu lt * ECG 12 lead (02/04/2025 5:30 PM EDT) Ventricular Rate ECG 74 BPM GEMUSE Atrial Rate 74 BPM GEMUSE P-R Interval 242 ms GEMUSE QRS Duration 140 ms GEMUSE Q-T Interval 422 ms GEMUSE QTc 468 ms GEMUSE P Wave [place] 64 degrees GEMUSE R [place] -19 degrees GEMUSE T [place] 27 degrees GEMUSE ECG Interpretation Sinus rhythm with 1st degree A-V block Right bundle branch block When compared with ECG of 12-JAN-2025 17:18, No significant change was found Confirmed by YUMIKO MCGILL ([id number]) on 02/06/2025 1:17:09 PM GEMUSE 02/04/2025 5:30 PM EDT 02/06/2025 1:17 PM EDT us Hernando Goodman MD ECG ORDERABLES Final Result GEMUSE from Last 3 Months Insurance MEDICARE [facility] Advance Directives * Full Code - Default (Latest Code Status on File) Date Activated Date Inactivated Comments 02/05/2025 3:30 AM 02/07/2025 8:16 PM This is order is used when code status has not been discussed with the patient, or code status is otherwise unknown/unconfirmed To update the patient's code status, place a code status order. Do not modify or discontinue any currently active code status orders. * Full Code - Confirmed Date Activated Date Inactivated Comments 01/12/2025 6:09 [...] currently active code status orders. Care Teams Cell Phone Repair Technician Relationship Specialty Start Date End Date Pascale Johnson MD [address] [place] [phone] PCP - General Internal Medicine 07/14/24
== END 2025-05-04 16:58 | disposition home or self-care (01) ==
PROVIDERS: PCP Internal Medicine; Visit Provider Internal Medicine
DX: Z00.00 Encounter for general adult medical examination without abnormal findings (principal); E11.9 Type 2 diabetes mellitus without complications; C34.90 Malignant neoplasm of unspecified part of unspecified bronchus or lung; I10 Essential (primary) hypertension; E55.9 Vitamin D deficiency, unspecified

== ENCOUNTER → 2025-05-04 13:59 | Outpatient (BNVA) | payer MEDICARE, OTHER, SELFPAY | PROVIDERS: PCP Internal Medicine; Visit Provider Internal Medicine | DX: Z00.00 Encounter for general adult medical examination without abnormal findings (principal); E11.9 Type 2 diabetes mellitus without complications; I10 Essential (primary) hypertension; E55.9 Vitamin D deficiency, unspecified; C34.90 Malignant neoplasm of unspecified part of unspecified bronchus or lung | CPT/HCPCS: 96127 ==